=== PATIENT | male | born 1985 | race African-American/Black ===

== ENCOUNTER → 2020-09-02 14:51 | Outpatient (BNVA) | payer SELFPAY | PROVIDERS: PCP Internal Medicine; Referring Provider Pediatrics; Visit Provider Urology | DX: Z76.89 Persons encountering health services in other specified circumstances (principal) ==

== ENCOUNTER → 2021-04-29 15:53 | Outpatient (BNVA) | payer SELFPAY | PROVIDERS: Visit Provider Urology | DX: N52.9 Male erectile dysfunction, unspecified (principal); E29.1 Testicular hypofunction | CPT/HCPCS: 99212 ==

== ENCOUNTER 2021-10-08 12:23 | Outpatient (REF) | payer OTHER, SELFPAY ==
--- NOTE | ~2021-10-08 | XR_ITS ---
EXAMINATION: XR AP BILATERAL KNEE AND LEFT KNEE CLINICAL INFORMATION: Left knee pain. COMPARISON: None. TECHNIQUE: AP bilateral knee standing 1 view. Left knee 2 views. FINDINGS: AP Bilateral Knee: There is mild reduction in medial compartment joint space both knees no visible fracture, loose bodies or bony erosive changes seen in either knee joints. Left Knee: The patellofemoral compartment joints is maintained normal. No visible acute fracture, dislocation or subluxation seen. The soft tissues are normal. No abnormal joint effusion seen. XR/XR knee LT 2V IMPRESSION: Mild degenerative changes medial compartment bilateral knees.
--- NOTE | ~2021-10-08 | XR_ITS ---
EXAMINATION: XR AP BILATERAL KNEE AND LEFT KNEE CLINICAL INFORMATION: Left knee pain. COMPARISON: None. TECHNIQUE: AP bilateral knee standing 1 view. Left knee 2 views. FINDINGS: AP Bilateral Knee: There is mild reduction in medial compartment joint space both knees no visible fracture, loose bodies or bony erosive changes seen in either knee joints. Left Knee: The patellofemoral compartment joints is maintained normal. No visible acute fracture, dislocation or subluxation seen. The soft tissues are normal. No abnormal joint effusion seen. XR/XR knee standing BI IMPRESSION: Mild degenerative changes medial compartment bilateral knees.
== END 2021-10-08 12:24 | disposition home or self-care (01) ==
LOC: HO.HOSX 12:23
PROVIDERS: Visit Provider Orthopaedic Surgery
DX: M23.92 Unspecified internal derangement of left knee (principal)
CPT/HCPCS: 20610; 73560; 73565; 99212; J1100

== ENCOUNTER 2021-10-26 12:48 | Outpatient (REF) | payer OTHER, SELFPAY ==
--- NOTE | ~2021-10-26 | MR_ITS ---
EXAMINATION: MR KNEE WITHOUT CONTRAST, LEFT CLINICAL INFORMATION: Pain. COMPARISON: X-rays of the left knee September 2021 TECHNIQUE: MRI of the knee without contrast was performed using routine sequences on a high-field scanner. FINDINGS: MENISCI: Medial Meniscus: There is an irregular tear involving the middle third portion of the posterior horn extending from the femoral to the tibial articular surface and extending over a distance of 10 mm medial to lateral. There is slight outward extrusion of the meniscus likely, in part, related to this tear. Lateral Meniscus: Intact. LIGAMENTS: Cruciate: Intact. Collateral: Intact. EXTENSOR MECHANISM: Intact. ARTICULAR CARTILAGE/BONE: Patellofemoral Compartment: Normal. Medial Compartment: The articular cartilage appears intact. There is subchondral marrow edema noted on the femoral and tibial articular surface likely reflecting areas of bone contusion. Lateral Compartment: Normal. JOINT FLUID AND BURSAE: There is a moderate joint effusion and minimal synovitis. MR/MR knee LT wo con IMPRESSION: Tear of the posterior horn of the medial meniscus. Bone contusion of the medial femoral condyle and tibial plateau. Joint effusion.
== END 2021-10-26 12:49 | disposition home or self-care (01) ==
LOC: HO.MRI 12:48
PROVIDERS: Visit Provider Orthopaedic Surgery
DX: M23.92 Unspecified internal derangement of left knee (principal)
CPT/HCPCS: 73721

== ENCOUNTER → 2021-11-05 12:04 | Outpatient (BNVA) | payer OTHER, SELFPAY | PROVIDERS: Visit Provider Orthopaedic Surgery | DX: S83.242D Other tear of medial meniscus, current injury, left knee, subsequent encounter (principal); E66.01 Morbid (severe) obesity due to excess calories | CPT/HCPCS: 99212 ==

== ENCOUNTER → 2021-11-16 12:39 | Outpatient (BNVA) | payer OTHER, SELFPAY | PROVIDERS: Visit Provider Orthopaedic Surgery | DX: S83.242D Other tear of medial meniscus, current injury, left knee, subsequent encounter (principal) | CPT/HCPCS: 99212 ==

== ENCOUNTER → 2022-01-04 12:20 | Outpatient (BNVA) | payer OTHER, SELFPAY | PROVIDERS: Visit Provider Physician Assistant | DX: S83.242A Other tear of medial meniscus, current injury, left knee, initial encounter (principal) | CPT/HCPCS: 99212 ==

== ENCOUNTER 2022-01-06 10:10 | Day surgery (SDC) | payer OTHER, SELFPAY ==
[2021-12-30 19:17] VITALS: BMI 47.2
--- NOTE | 2022-01-05 08:33 | P.CONAN_ITS ---
Documented by User: Vianca Lamar NP 01/05/22 08:33 HPI - Anesthesia Eval Consult details Narrative: 36yo M for Left?Knee Arthroscopy [facility] Active Problems Active Problems: All Active Problems (Updated 12/30/21 @ 19:14 by Fallon Soler, ZINA) Hypogonadism in male (Acute) Erectile dysfunction (Acute) Internal derangement of left knee (Acute) Tear of medial meniscus of left knee (Acute) Morbid obesity due to excess calories (Acute) Past Medical History Medical History Back pain as manifestation of blood transfusion reaction History of transfusion of platelets Sleep apnea with use of continuous positive airway pressure (CPAP) Social History Social History Patient Tobacco Use Status: Never used Tobacco Current occupational status: employed 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 Meds Allergies Allergy/AdvReac Type Severity Reaction Status Date / Time No Known Allergies Allergy Verified 01/04/22 12:32 Home Medications Medication Instructions Recorded Confirmed Last Taken Type methocarbamol 750 mg tablet 750 mg PO Q6H 09/02/20 12/30/21 Unknown History tizanidine 4 mg tablet 4 mg PO Q6-8H PRN 01/04/22 Unknown History Exam Exam Date and Time: January 05, 2022 0833 Height,Weight and Vital Signs: Height 5 ft 10 in Weight 149.232 kg Assessment and Plan Assessment Anesthesia Assessment: Chart Reviewed Documented by User: Dinesh Roberts MD 01/06/22 18:03 [facility] Past Medical History Medical History Back pain as manifestation of blood transfusion reaction History of transfusion of platelets Sleep apnea with use of continuous positive airway pressure (CPAP) Family History Family history of problems with anesthesia: No Surgical History History of Problems with Anesthesia: No Social History Social History Patient Tobacco Use Status: Never used Tobacco Current occupational status: employed 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 Meds Allergies Allergy/AdvReac Type Severity Reaction Status Date / Time No Known Allergies Allergy Verified 01/04/22 12:32 Home Medications Medication Instructions Recorded Confirmed Last Taken Type methocarbamol 750 mg tablet 750 mg PO Q6H 09/02/20 12/30/21 Unknown History tizanidine 4 mg tablet 4 mg PO Q6-8H PRN 01/04/22 Unknown History Exam Airway Mallampati Class: IV TM Dist: >3cm Neck ROM: Full Loose/Missing/Broken Teeth: Yes Heart: S1, S2 Lungs: b/l breath sounds Assessment and Plan Assessment Anesthesia Assessment: Anesthesia Plan Discussed and PAT Visit Final Anesthetic Review Family History of Problems with Anesthesia: No History of Problems with Anesthesia: No NPO: Yes ASA Class: III Final Preanesthetic Review: Meds/Allgs Chart Reviewed, Consent Obtained/Reviewed and Anes Risks/Benef Reviewed Patient Risk: Intermediate Procedure Risk: Intermediate Anesthetic Plan Anesthetic Plan: GA Disposition: Standard PACU
[2022-01-06] VITALS (8 sets, daily range): BP systolic 115–140; BP diastolic 66–98; PULSE 71–82; RESP 16–20; TEMP 36.2–37.1; O2SAT 94–100
[2022-01-06] MEDS: Lactated Ringers 1,000 ML 100 ML IVCONT (10:56)
--- NOTE | 2022-01-06 12:01 | MHC.SHP ---
Pre-Procedural Eval Section A Date of Service: 01/06/22 The patient is an INPATIENT: No Changes since office visit: Yes Patient answered all questions; No Cold of Flu in the past 2 weeks, No New Medical Problems and No Changes in Medication The History & Physical has been completed within 30 days and I have reviewed it.: Yes Section B Chief Complaint: meniscus tear Allergies: Allergies Allergy/AdvReac Type Severity Reaction Status Date / Time No Known Allergies Allergy Verified 01/04/22 12:32 Plan I have reviewed the history and physical and performed a pertinent physical examination on my patient. No changes have occurred unless specified.
--- NOTE | 2022-01-06 13:18 | P.BOP_ITS ---
Brief Operative Note Date of Service: 01/06/22 Pre-op diagnosis: left knee medial meniscus tear Post-op diagnosis: other (1) left knee medial meniscus tear 2) left knee plica 3) left knee OA 4) left knee synovitis) Procedure: left knee with partial medial meniscectomy, plica resection, chondroplasty and limited synovectomy Surgeon: Wei Santana MD Anesthesia: GETA and local Was an Dental Laboratory Assistant used for this Procedure?: No Estimated blood loss (mL): 10 IV fluids (mL): 1,000 Pathology: none sent Condition: stable Disposition: PACU
[2022-01-06] MEDS: oxyCODONE HCl Immed Release 5 MG TABLET PO (13:57)
--- NOTE | 2022-01-15 16:05 | P.OP_ITS ---
Operative Note Operative Note Date of Service: 01/06/22 Narrative: Date of Service: 01/06/22 Pre-op diagnosis: left knee medial meniscus tear Post-op diagnosis: other (1) left knee medial meniscus tear 2) left knee plica 3) left knee OA 4) left knee synovitis) Procedure: left knee with partial medial meniscectomy, plica resection, chondroplasty and limited synovectomy Surgeon: Wei Santnaa MD Anesthesia: GETA and local Was an Customer Service Supervisor used for this Procedure?: No Estimated blood loss (mL): 10 IV fluids (mL): 1,000 Pathology: none sent Condition: stable Disposition: PACU Procedure in detail: Patient was brought to the operating room placed supine on the arthroscopic table and prepped and draped in standard sterile fashion. A time-out was called to identify proper site proper procedure proper surgeon and IV antibiotics per weight were administered. I began by exsanguinating the limb and insufflating tourniquet to 300 mm Hg. Then made a standard anterolateral stab incision. knee was insufflated with water and 30 degree arthroscope was placed. There was grade 1 fibrillations of the patella but overall suprapatellar pouch was plane and the gutters were clean. I descended into the medial compartment where I made my medial portal under direct visualization. There was obvious of complex tear of the body and posterior horn of the medial meniscus. Root was intact and there was grade 2-3 changes of the wbn portion of the MFC. There was a medial plica which was resected as well. I used a combination of biter shaver and cautery to remove unstable portions of the meniscus. Approximately 30% of the meniscal volume was removed. Loose cartilaginous fragments of the medial femoral condyle and patella were debrided with a shaver. There was synovitis in the anterior interval which was debrided with a shaver I was satisfied with this the ACL was examined and found to be intact and the lateral compartment also was without the need for intervention. I then removed all instrumentation and closed the portals with skin glue. 25 mL of 2% Marcaine with epinephrine was injected into the joint and the surrounding soft tissues. Patient was then placed in sterile dressing extubated brought recovery room stable condition. There were no known complications.
== END 2022-01-06 15:36 | disposition home or self-care (01) ==
LOC: HO.SSS 10:11
PROVIDERS: Visit Provider Orthopaedic Surgery
PROC: (CPT 29870; principal; 2022-01-06 12:40)
DX: S83.242A Other tear of medial meniscus, current injury, left knee, initial encounter (principal); M67.52 Plica syndrome, left knee; M17.12 Unilateral primary osteoarthritis, left knee; M65.862 Other synovitis and tenosynovitis, left lower leg; R26.89 Other abnormalities of gait and mobility; G47.33 Obstructive sleep apnea (adult) (pediatric); Z99.89 Dependence on other enabling machines and devices
CPT/HCPCS: 29881; J0690; J1100; J2250; J2405; J3010

== ENCOUNTER 2022-01-11 07:48 | Outpatient (RCR) | payer OTHER, SELFPAY ==
--- NOTE | 2022-01-11 16:37 | MHC.PT.EP ---
[facility] [place] Office [place] Office [place] Office [address] Gibran Gagnon [address] [phone] F: [phone] F: [phone] F: [phone] F: [phone] Physical Therapy Plan of Care Date of Evaluation: Date of Surgery: 01/06/22 Diagnosis: left knee with partial medial meniscectomy, plica resection, chondroplasty and limited synovectomy Assessment: PRESENTS POD #5 FOR ORTHOPEDIC FOLLOW UP AND PT EVALUATION. UPON EXAM HE DEMONSTRATES THE EXPECTED IMPAIRMENTS OF DECREASED ROM, DECREASED STRENGTH, ALTERED POSTURE AND POSITIONING, ALTERED GAIT AND BALANCE, AND INCREASED PAIN AND EDEMA. FUNCTIONAL LIMITATIONS INCLUDE DECREASED ABILITY TO PERFORM HOMEMAKING AND SELF-CARE TASKS, DECREASED ABILITY TO PERFORM WALKING, RUNNING, JUMPING AND SQUATTING, INABILITY TO DRIVE AND PERFORM WORK TASKS, DECREASED PARTICIPATION IN COMMUNITY AND RECREATIONAL ACTIVITIES AND DISRUPTED SLEEP. THE Pt IS A GOOD CANDIDATE FOR SKILLED PT DUE TO AGE, POTENTIAL REMEDIATION OF IMPAIRMENTS, TYPICAL DISEASE/CONDITION PROGRESSION AND PROGNOSIS, COMORBIDITIES, AND MOTIVATION. PT WOULD BENEFIT FROM TAILORED PROGRAM OF THERAPEUTIC ACTIVITIES, FUNCTIONAL TRAINING, GAIT TRAINING, POSTURAL EDUCATION, NEUROMUSCULAR RE-EDUCATION, AND MODALITIES NEEDED. Frequency and Duration: The patient will be seen 2 X WEEK FOR 4 WEEKS Short Term Goals: INITIATE HEP AND PROMOTE SELF MANAGEMENT OF SYMPTOMS IN 2 VISITS Long-Term Goals: TO DEMONSTRATE FULL KNEE ROM, EQUAL MADHURI TO DEMONSTRATE FULL LE STRENGTH, EQUAL MADHURI TO ASCEND AND DESCEND STAIRS WITH RECIPROCAL GAIT WITHOUT PAIN GREATER THAN 2/10 TO AMBULATE AD CONSTANTINE ON LEVEL AND UNEVEN SURFACES FOR FITNESS WITHOUT PAIN GREATER THAN 2/10 Treatment Plan: Modalities to reduce pain, spasms and effusion. Manual therapy to restore motion and function. Therapeutic exercise to improve strength and flexibility. Neuromuscular re-education for posture and balance. Therapeutic activities to return to functional activities of daily living. Electronically signed by: RALEIGH TAVAREZ PT, DPT Please sign and return to therapist. Thank you for your referral.
--- NOTE | 2022-02-09 09:54 | MHC.PT.DC ---
[facility] [place] Office [place] Office [place] Office [address] [facility] [phone] F: [phone] F: [phone] F: [phone] F: [phone] Physical Therapy Discharge Report Diagnosis: left knee with partial medial meniscectomy, plica resection, chondroplasty and limited synovectomy Date of Surgery: 01/06/22 Date of Evaluation: 01/11/22 Date of Discharge: 02/09/22 Treatments to Date: 1 Cancellations to Date: 0 No Shows to Date: 0 Discharge Status: Discharge Summary: Pt attended initial visit only and did not return for further visits. Status unknown. Electronically signed by: Deepika Charles PT, DPT Please sign and return to therapist. Thank you for your referral.
== END 2022-02-09 10:03 | disposition home or self-care (01) ==
LOC: HO.PT 07:48
PROVIDERS: Visit Provider Physician Assistant
DX: M23.92 Unspecified internal derangement of left knee (principal); S83.242D Other tear of medial meniscus, current injury, left knee, subsequent encounter
CPT/HCPCS: 97110; 97161

== ENCOUNTER → 2022-01-11 11:29 | Outpatient (BNVA) | payer OTHER, SELFPAY | PROVIDERS: Visit Provider Physician Assistant | DX: S83.242D Other tear of medial meniscus, current injury, left knee, subsequent encounter (principal) | CPT/HCPCS: 99212 ==

== ENCOUNTER 2022-04-13 10:05 | Outpatient (REF) | payer OTHER, SELFPAY ==
--- NOTE | ~2022-04-13 | XR_ITS ---
EXAMINATION: XR FOOT, BILATERAL CLINICAL INFORMATION: Pain. COMPARISON: None TECHNIQUE: 3 views of each foot. FINDINGS: RIGHT FOOT: There is no evidence of acute fracture or dislocation of the right foot. Right foot joint spaces are maintained. There is a small bony density seen about the base of the 5th proximal phalanx likely related to previous injury. A plantar calcaneal spur is seen. LEFT FOOT: There is no evidence of acute fracture or dislocation of the left foot. Joint spaces are maintained. Plantar calcaneal spur is seen. XR/XR foot LT min 3V IMPRESSION: Bilateral plantar calcaneal spurs. No acute fracture or dislocation identified.
--- NOTE | ~2022-04-13 | XR_ITS ---
EXAMINATION: XR FOOT, BILATERAL CLINICAL INFORMATION: Pain. COMPARISON: None TECHNIQUE: 3 views of each foot. FINDINGS: RIGHT FOOT: There is no evidence of acute fracture or dislocation of the right foot. Right foot joint spaces are maintained. There is a small bony density seen about the base of the 5th proximal phalanx likely related to previous injury. A plantar calcaneal spur is seen. LEFT FOOT: There is no evidence of acute fracture or dislocation of the left foot. Joint spaces are maintained. Plantar calcaneal spur is seen. XR/XR foot RT min 3V IMPRESSION: Bilateral plantar calcaneal spurs. No acute fracture or dislocation identified.
== END 2022-04-13 10:06 | disposition home or self-care (01) ==
LOC: HO.XRAY 10:05
PROVIDERS: PCP Internal Medicine; Visit Provider Internal Medicine
DX: M25.571 Pain in right ankle and joints of right foot (principal); M25.572 Pain in left ankle and joints of left foot
CPT/HCPCS: 73630

== ENCOUNTER → 2022-07-12 12:46 | Outpatient (BNVA) | payer OTHER, SELFPAY | PROVIDERS: PCP Internal Medicine; Visit Provider Physician Assistant | DX: M17.12 Unilateral primary osteoarthritis, left knee (principal) | CPT/HCPCS: 99212 ==

== ENCOUNTER 2022-07-23 14:26 | Outpatient (REF) | payer OTHER, SELFPAY ==
--- NOTE | ~2022-07-23 | MR_ITS ---
EXAMINATION: MR KNEE WITHOUT CONTRAST, LEFT CLINICAL INFORMATION: Anterior left knee pain for 3 weeks. Medial pain with positive valgus test. Arthroscopy 6 months ago. COMPARISON: Left knee MRI dated 10/26/2021. TECHNIQUE: MRI of the knee without contrast was performed using routine sequences on a high-field scanner. FINDINGS: MENISCI: Medial Meniscus: There has been interval repair of the previously seen posterior horn radial tear. The posterior horn appears attenuated in this region with oblique tibial articular surface signal extending along the posterior body/posterior horn junction and to the inner margin of the meniscal body, which could represent recurrent, nondisplaced tearing. The meniscal body is medially extruded. Correlation with surgical history is recommended. Lateral Meniscus: Intact LIGAMENTS: Cruciate: Intact Collateral: Intact EXTENSOR MECHANISM: Intact ARTICULAR CARTILAGE/BONE: Patellofemoral Compartment: Mild lateral patellar and trochlear articular cartilage signal heterogeneity with tiny marginal osteophytes, increased when compared to the prior examination. Medial Compartment: Weight-bearing articular cartilage thinning with full-thickness fissuring at the medial femoral condyle measuring 0.1 x 0.6 cm (ML by AP). Underlying marrow edema, increased when compared to the prior examination. Tiny marginal osteophytes. Lateral Compartment: Mild articular cartilage signal heterogeneity with tiny marginal osteophytes, slightly increased. JOINT FLUID AND BURSAE: Small joint effusion. MR/MR knee LT wo con IMPRESSION: 1. Interval repair of the previously seen medial meniscus posterior horn radial tear. The posterior horn appears attenuated in this region with oblique tibial articular surface signal extending along the posterior body/posterior horn junction and to the inner margin of the meniscal body, which could represent recurrent, nondisplaced tearing. Correlation with surgical history is recommended. 2. Mild tricompartmental osteoarthritis, slightly increased when compared to the prior examination. Findings are most prominent within the medial compartment where there is increasing marrow edema. Small joint effusion.
== END 2022-07-23 14:27 | disposition home or self-care (01) ==
LOC: HO.MRI 14:26
PROVIDERS: Visit Provider Family Medicine
DX: M25.562 Pain in left knee (principal)
CPT/HCPCS: 73721

== ENCOUNTER → 2022-08-09 13:33 | Outpatient (BNVA) | payer OTHER, SELFPAY | PROVIDERS: PCP Internal Medicine; Visit Provider Physician Assistant | DX: M17.12 Unilateral primary osteoarthritis, left knee (principal) | CPT/HCPCS: 99212 ==

== ENCOUNTER 2022-11-17 11:48 | Outpatient (REF) | payer OTHER, SELFPAY ==
[2022-11-21 22:53] LABS: Estradiol Ultra Sensitive 19 pg/mL (< OR = 29)
[2022-11-22 17:34] LABS: Testosterone, Free 28.9 pg/mL (35.0-155.0); Testosterone, Total 132 ng/dL (250-1100)
== END 2022-11-17 11:49 | disposition home or self-care (01) ==
LOC: HO.LAB 11:48
PROVIDERS: PCP Internal Medicine; Visit Provider Urology
DX: E29.1 Testicular hypofunction (principal)
CPT/HCPCS: 36415; 82670; 84402; 84403

== ENCOUNTER → 2022-11-30 15:46 | Outpatient (BNVA) | payer OTHER, SELFPAY | PROVIDERS: Visit Provider Urology ==

== ENCOUNTER → 2023-01-06 10:45 | Outpatient (BNVA) | payer OTHER, SELFPAY | PROVIDERS: PCP Internal Medicine; Visit Provider Orthopaedic Surgery | DX: M17.12 Unilateral primary osteoarthritis, left knee (principal); M89.9 Disorder of bone, unspecified; M94.9 Disorder of cartilage, unspecified | CPT/HCPCS: 20610; 99212; J1100 ==

== ENCOUNTER 2023-01-28 13:07 | Outpatient (REF) | payer OTHER, SELFPAY ==
[2023-02-04 13:58] LABS: Testosterone, Free 32.7 pg/mL (35.0-155.0); Testosterone, Total 162 ng/dL (250-1100)
== END 2023-01-28 13:08 | disposition home or self-care (01) ==
LOC: HO.LAB 13:07
PROVIDERS: PCP Internal Medicine; Visit Provider Urology
DX: E29.1 Testicular hypofunction (principal)
CPT/HCPCS: 36415; 84402; 84403

== ENCOUNTER → 2023-02-09 15:49 | Outpatient (BNVA) | payer OTHER, SELFPAY | PROVIDERS: PCP Internal Medicine; Visit Provider Urology ==

== ENCOUNTER 2023-03-03 08:43 | Outpatient (REF) | payer OTHER, SELFPAY ==
[2023-03-03 15:05] LABS: TSH reflex Free T4 2.34 uIU/mL (0.32-4.0)
== END 2023-03-03 08:44 | disposition home or self-care (01) ==
LOC: CF 08:43
PROVIDERS: Visit Provider Internal Medicine
DX: R79.89 Other specified abnormal findings of blood chemistry (principal)
CPT/HCPCS: 36415; 84443

== ENCOUNTER 2023-05-16 14:22 | Outpatient (REF) | payer OTHER, SELFPAY ==
[2023-05-16 16:23] LABS: TSH reflex Free T4 3.73 uIU/mL (0.32-4.0)
[2023-05-21 19:18] LABS: Testosterone, Free 29.1 pg/mL (35.0-155.0); Testosterone, Total 118 ng/dL (250-1100)
== END 2023-05-16 14:23 | disposition home or self-care (01) ==
LOC: HO.LAB 14:22
PROVIDERS: Absent Provider Internal Medicine; PCP Internal Medicine; Visit Provider Urology
DX: R79.89 Other specified abnormal findings of blood chemistry (principal); E29.1 Testicular hypofunction
CPT/HCPCS: 36415; 84402; 84403; 84443

== ENCOUNTER 2023-06-02 14:00 | Outpatient (AMB) | payer OTHER, SELFPAY ==
--- NOTE | 2023-06-02 14:01 | MHC.OFFVIS ---
Intake Intake Visit Reasons: 3M Testosterone(set) Intake Note: Patient presents for follow up telephone visit for testosterone labs Urology Medications: tadalafil Blood Thinner: none Heavy Forger Required: Yes Heavy Forger Name: Dorothy Accompanied by: Self / Same As Patient Allergies No Known Allergies Allergy (Verified 06/02/23 16:11) Medication List - Last Reconciled 06/02/23 by TU Lares levothyroxine 25 mcg PO DAILY methocarbamol 750 mg PO Q6H tadalafil 20 mg PO ONCE PRN 30 days testosterone 2 pumps topical DAILY 30 days tizanidine 4 mg PO Q6-8H PRN HPI HPI Comments History of Present Illness Details Tawanda is a very pleasant 37-year-old Khmer-speaking male patient of Dr. Fuentes. He has a past medical history of back pain, hypothyroidism, and sleep apnea. He is being followed up on today via telehealth for hypogonadism and erectile dysfunction. In discussion with the patient he reports to be doing and feeling well. He reports feeling more energy and in better spirits since increasing daily dose of Cialis 10 mg daily. Recent testosterone results reviewed with the patient today. 05/16/23--118. Discussed continuation of Tadalafil verses initiation of testosterone therapy at length. Discussed risk and benefits of testosterone replacement therapy. Discussed at length potential causes for low testosterone. When asked he reports Cialis 20 mg on demand to be helping with erectile dysfunction. He otherwise denies any issues with his urination. He denies urinary urgency, urinary frequency, incontinence, nocturia, hematuria, dysuria, foul smelling urine, changes to urinary stream, flank pain, fever, and or chills. Previous office note information: Erectile dysfunction: He presents today for further evaluation of ejaculatory disorder. Symptoms have been present for/since Several months. Current treatment includes none. Has used tadalafil in the past At this time he experiences erections are partial and adequate for vaginal penetration, that last until ejaculation. Currently they are in a stable relationship. 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 Review of Systems Const All systems reviewed & are unremarkable except as noted in HPI and below Eyes Reports no additional complaints ENT Reports no additional complaints Card Reports no additional complaints Resp Reports as per HPI GI Reports no additional complaints Reports as per HPI Musc Reports as per HPI Neuro Reports no additional complaints Psych Reports no additional complaints Endo Reports as per HPI Ronaldo/Lymph Reports no additional complaints Aller/Immun Reports no additional complaints Physical Exam Const General: cooperative Orientation/consciousness: patient oriented x3 Resp Effort & Inspection: able to speak in complete sentences Neuro General: patient oriented x3 Psych Speech and movement: Clear speech present Attitude: cooperative Thought process: Normal thought process present Insight: Fair insight present (Psych) Judgement: Fair judgement present (Psych) Assessment & Plan Assessment & Plan (1) Hypogonadism in male: Code(s): E29.1 - Testicular hypofunction (2) Erectile dysfunction: Code(s): N52.9 - Male erectile dysfunction, unspecified Plan Recent testosterone results reviewed with the patient today Start testosterone as discussed and prescribed. Continue with p.r.n. Tadalafil as needed for sexual active Discussed at length potential causes for low testosterone. Discussed adequate sleep, healthy eating habits, and daily activity for improvement in hypogonadism as well as overall health and well-being. Will obtain testosterone, CBC, and PSA in 3 months. Follow-up in 3 months with labs to be completed prior; or sooner with any issues, concerns, and or questions. Orders: Orders Testosterone, Free/Total 3 Months E29.1 - Testicular hypofunction Prostate Specific Antigen 3 Months E29.1 - Testicular hypofunction Complete Blood Count no Diff 3 Months E29.1 - Testicular hypofunction Medications: New testosterone apply 2 pumps over max area - alternate shoulders on alternate days 2 pumps topical DAILY 30 days 75 grams 1RF E29.1 - Testicular hypofunction, R79.89 - Other specified abnormal findings of blood chemistry Patient Instructions: The patient had an opportunity to ask questions regarding the treatment plan. All questions were answered. Physical exam, labs, and imaging were discussed and reviewed in detail. As well as risks, benefits, and discussion of treatment choices. No major barriers to understanding were identified. The patient expressed understanding and agreement with the above treatment plan. The patient was made aware they should contact our office by phone for worsening of their current condition, the appearance of new symptoms, or with any questions or concerns. Compliance is encouraged with any medications and follow up testing that is ordered. It is a privilege to be allowed the opportunity to participate in? your urological care.? Again, if you have any questions or concerns If you have any questions or concerns please do not hesitate to contact me. The office is [phone]. This note is constructed using voice recognition software. While every effort has been made to ensure accuracy business objects consultant errors may have been included. Yours sincerely, GANGA Lares Telehealth Telehealth Location of provider rendering services: practice address Location of patient: address on file Patient Identification confirmed using: Name, : Yes Telehealth method: voice only Patient verbally consented to treatment: Yes Patient verbally consented to billing insurance company: Yes Patient informed of any privacy concerns related to visit: Yes Minutes spent on Phone/Video with Pt.: 20 Coding Level of Care Code Tele Est Pt Level 4 (27543) Diagnoses Hypogonadism in male E29.1 Erectile dysfunction N52.9 Time Spent (min) 20
== END 2023-06-02 15:03 | disposition home or self-care (01) ==
LOC: HO.HUSH 14:00
PROVIDERS: PCP Internal Medicine; Visit Provider Nurse Practitioner Family
DX: E29.1 Testicular hypofunction (principal); N52.9 Male erectile dysfunction, unspecified
CPT/HCPCS: 99214

== ENCOUNTER → 2023-06-02 14:00 | Outpatient (BNVA) | payer OTHER, SELFPAY | PROVIDERS: PCP Internal Medicine; Visit Provider Nurse Practitioner Family ==

== ENCOUNTER 2023-08-29 06:42 | Outpatient (REF) | payer OTHER, SELFPAY ==
[2023-09-03 15:38] LABS: Testosterone, Free 64.7 pg/mL (35.0-155.0); Testosterone, Total 248 ng/dL (250-1100)
== END 2023-08-29 06:43 | disposition home or self-care (01) ==
LOC: HO.LAB 06:42
PROVIDERS: PCP Internal Medicine; Visit Provider Nurse Practitioner Family
DX: E29.1 Testicular hypofunction (principal)
CPT/HCPCS: 36415; 84153; 84402; 84403; 85027

== ENCOUNTER 2023-09-12 13:39 | Outpatient (AMB) | payer OTHER, SELFPAY ==
--- NOTE | 2023-09-12 14:18 | MHC.OFFVIS ---
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 Fuentes. He has a past medical history of back pain, obesity, hypothyroidism, and sleep apnea. He presents to the office today for follow-up of his hypogonadism and erectile dysfunction. In discussion with the patient he reports to be doing and feeling well. Recent testosterone results reviewed with the patient today as noted below. He discusses feeling although testosterone levels have increased since his last office visit here he has noted a decrease in his erections and has had to use his p.r.n Cialis for improvement in his ED. He discusses feeling when utilizing p.r.n. Cialis it is helpful for his erections however he feels it prolongs his ejaculation. Discussed lifestyle modifications to assist with prolonged ejaculation. Discussed stimulation preceding sexual intercourse. He otherwise denies any issues with his urination. He denies urinary urgency, urinary frequency, incontinence, nocturia, hematuria, dysuria, foul smelling urine, changes to urinary stream, flank pain, fever, and or chills. He discusses previous infertility workup in [place] however in discussion with the patient today he reports he does not wish to undergo further workup as his has been diagnosed with Lupus and together they are not enquiring to conceive at this time. Previous office note information: Erectile dysfunction: He presents today for further evaluation of ejaculatory disorder. Symptoms have been present for/since Several months. Current treatment includes none. Has used tadalafil in the past At this time he experiences erections are partial and adequate for vaginal penetration, that last until ejaculation. Currently they are in a stable relationship. 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 Review of Systems Const All systems reviewed & are unremarkable except as noted in HPI and below Eyes Reports no additional complaints ENT Reports no additional complaints Card Reports no additional complaints Resp Reports as per HPI GI Reports no additional complaints Reports as per HPI Musc Reports as per HPI Neuro Reports no additional complaints Psych Reports no additional complaints Endo Reports as per HPI Ronaldo/Lymph Reports no additional complaints Aller/Immun Reports no additional complaints Physical Exam Const General: cooperative, healthy appearing, comfortable, no acute distress, well developed, alert and awake Nutritional Appearance: overweight Orientation/consciousness: patient oriented x3 Limitations: no limitations HEENT Head: Yes normal to inspection, Yes normocephalic and Yes atraumatic Ears: hearing grossly normal bilaterally Eyes General: appearance normal, both eyes and all related structures Neck Neck: Yes normal visual inspection and Yes trachea midline Chest Chest palpation & inspection: normal inspection of the chest Resp Effort & Inspection: normal respiratory effort and able to speak in complete sentences Cardio Rate: regular rate GI Inspection: Yes normal to inspection General: Yes no CVA tenderness Back/Spine/Pelvis Back: no CVA tenderness Skin General skin exam: no rashes or lesions noted Neuro General: patient oriented x3 Extrem General: Yes normal to inspection Psych Appearance: grossly normal and well kempt Mental Status: mental status grossly normal Speech and movement: Normal speech and movement present and Clear speech present Affect: normal affect Attitude: cooperative Thought process: Normal thought process present Thought content: Normal thought content present Insight: Fair insight present (Psych) Judgement: Fair judgement present (Psych) Results AMB Urinalysis, Automated UA Leukoctes 0 Stephany/uL Last Edit by Reyes Garcia on 09/12/23 14:29 UA Nitrite Negative Last Edit by Reyes Garcia on 09/12/23 14:29 UA Urobilinogen 0.2 mg/dL Last Edit by Reyes Garcia on 09/12/23 14:29 UA Protein 0 mg/dL Last Edit by [employer] on 09/12/23 14:29 UA pH 6.0 Last Edit by [employer] on 09/12/23 14:29 UA Blood 0 Cj/uL Last Edit by [employer] on 09/12/23 14:29 UA Specific [place] 1.030 Last Edit by [employer] on 09/12/23 14:29 UA Ketone Negative Last Edit by [employer] on 09/12/23 14:29 UA Bilirubin 0 mg/dL Last Edit by [employer] on 09/12/23 14:29 UA Glucose 0 mg/dL Last Edit by [employer] on 09/12/23 14:29 Results Reviewed Results Reviewed: Laboratory Last Values Urine pH (Auto) 6.0 09/12/23 14:23 Specific [place] (Auto) 1.030 09/12/23 14:23 Urine Protein (Auto) 0 mg/dL 09/12/23 14:23 Glucose (UA)(Auto) 0 mg/dL 09/12/23 14:23 Urine Ketones (Auto) Negative 09/12/23 14:23 Urine Blood (Auto) 0 Cj/uL 09/12/23 14:23 Urine Nitrite (Auto) Negative 09/12/23 14:23 Urine Bilirubin (Auto) 0 mg/dL 09/12/23 14:23 Urine Urobilinogen (Auto) 0.2 mg/dL 09/12/23 14:23 Leukocyte Esterase (Auto) 0 Stephany/uL 09/12/23 14:23 Assessment & Plan Assessment & Plan (1) Hypogonadism in male: Code(s): E29.1 - Testicular hypofunction (2) Erectile dysfunction: Code(s): N52.9 - Male erectile dysfunction, unspecified Plan In office urinalysis results reviewed with the patient today; as noted above. Patient currently denies any bothersome urinary issues. He reports be happy with current voiding parameters. Recent testosterone, PSA, and CBC results reviewed with the patient today. Will increase testosterone to 3 pumps daily as discussed and prescribed. Continue with Cialis as needed for sexual activity as prescribed. Discussed and stressed the importance of compliance with sleep apnea machine for improvement in ED, hypogonadism, and overall health and well being. Discussed and stressed the importance of lifestyle modifications to assist with ED as well as hypogonadism Follow-up in 3 months with labs to be completed prior; or sooner with any issues, concerns, and or questions. Orders: Orders AMB Urinalysis Automated Today Z13.9 - Encounter for screening, unspecified Complete Blood Count no Diff 3 Months E29.1 - Testicular hypofunction Testosterone, Free/Total 3 Months E29.1 - Testicular hypofunction Prostate Specific Antigen 3 Months E29.1 - Testicular hypofunction Medications: Changed From testosterone apply 2 pumps over max area - alternate shoulders on alternate days 2 pumps topical DAILY 30 days 75 grams 1RF E29.1 - Testicular hypofunction, R79.89 - Other specified abnormal findings of blood chemistry To testosterone apply 2 pumps over max area - alternate shoulders on alternate days 3 pumps topical DAILY 75 grams 1RF 30 days E29.1 - Testicular hypofunction, R79.89 - Other specified abnormal findings of blood chemistry Patient Instructions: The patient had an opportunity to ask questions regarding the treatment plan. All questions were answered. Physical exam, labs, and imaging were discussed and reviewed in detail. As well as risks, benefits, and discussion of treatment choices. No major barriers to understanding were identified. The patient expressed understanding and agreement with the above treatment plan. The patient was made aware they should contact our office by phone for worsening of their current condition, the appearance of new symptoms, or with any questions or concerns. Compliance is encouraged with any medications and follow up testing that is ordered. It is a privilege to be allowed the opportunity to participate in? your urological care.? Again, if you have any questions or concerns If you have any questions or concerns please do not hesitate to contact me. The office is [phone]. This note is constructed using voice recognition software. While every effort has been made to ensure accuracy real estate processor errors may have been included. Yours sincerely, TU Lares Coding Level of Care Code Est Pt Level 4 (03564) Diagnoses Hypogonadism in male E29.1 Erectile dysfunction N52.9 Time Spent (min) 40
== END 2023-09-12 14:58 | disposition home or self-care (01) ==
PROVIDERS: PCP Internal Medicine; Visit Provider Nurse Practitioner Family
DX: E29.1 Testicular hypofunction (principal); N52.9 Male erectile dysfunction, unspecified; Z13.9 Encounter for screening, unspecified
CPT/HCPCS: 99214

== ENCOUNTER → 2023-09-12 13:39 | Outpatient (BNVA) | payer OTHER, SELFPAY | PROVIDERS: PCP Internal Medicine; Visit Provider Nurse Practitioner Family | DX: E29.1 Testicular hypofunction (principal); N52.9 Male erectile dysfunction, unspecified | CPT/HCPCS: 81003; 99212 ==

== ENCOUNTER 2024-01-09 08:44 | Outpatient (REF) | payer OTHER, SELFPAY ==
[2024-01-09 15:01] LABS: Alanine Aminotransferase 49 U/L (0-40); Albumin Level 3.9 g/dL (3.5-5.0); Alkaline Phosphatase 84 U/L (39-117); Anion Gap 14 (12-20); Aspartate Amino Transferase 32 U/L (5-37); Bilirubin Total 0.3 mg/dL (0.0-1.0); Blood Urea Nitrogen 11 mg/dL (9-16); Calcium 9.4 mg/dL (8.4-10.2); Carbon Dioxide 24 mmol/L (22-29); Chloride 107 mmol/L (96-108); Cholesterol 141 mg/dL (<200); Estimated Glomerular Filt Rate > 60; Glucose Random 100 mg/dL (60-115); HDL Cholesterol 35 mg/dL (>40); LDL Cholesterol Calculated 90 mg/dL (<100); Potassium 3.8 mmol/L (3.3-5.1); Sodium 141 mmol/L (135-145); Total Protein 7.6 g/dL (6.5-8.0); Triglycerides 83 mg/dL (<150)
[2024-01-09 15:17] LABS: TSH reflex Free T4 2.06 uIU/mL (0.32-4.0)
== END 2024-01-09 08:45 | disposition home or self-care (01) ==
LOC: HO.CHCLDS 08:44
PROVIDERS: Visit Provider Internal Medicine
DX: Z00.00 Encounter for general adult medical examination without abnormal findings (principal); R79.89 Other specified abnormal findings of blood chemistry; E66.01 Morbid (severe) obesity due to excess calories
CPT/HCPCS: 36415; 80053; 80061; 84443

== ENCOUNTER 2024-03-09 08:38 | Outpatient (REF) | payer OTHER, SELFPAY ==
[2024-03-09 10:22] LABS: Hematocrit 44.4 % (42.0-52.0); Hemoglobin 14.8 g/dl (14.0-18.0); Mean Corpuscular HGB Conc 33.3 g/dl (31.0-36.0); Mean Corpuscular Hemoglobin 29.7 pg (27.0-33.0); Mean Corpuscular Volume 89.2 fL (80.0-98.0); Platelet Count 213 X10*3/uL (160-400); Red Blood Count 4.98 X10*6/uL (4.60-5.80); Red Cell Distribution Width 11.9 % (11.0-16.0); White Blood Count 7.2 X10*3/uL (4.8-10.8)
[2024-03-13 21:53] LABS: Testosterone, Free 35.3 pg/mL (35.0-155.0); Testosterone, Total 144 ng/dL (250-1100)
== END 2024-03-09 08:39 | disposition home or self-care (01) ==
LOC: HO.LAB 08:38
PROVIDERS: PCP Internal Medicine; Visit Provider Nurse Practitioner Family
DX: E29.1 Testicular hypofunction (principal)
CPT/HCPCS: 36415; 84153; 84402; 84403; 85027

== ENCOUNTER 2024-05-08 12:03 | Outpatient (AMB) | payer OTHER, SELFPAY ==
--- NOTE | 2024-05-08 12:04 | A.OFFVIS_ITS ---
Intake Visit Reasons: follow up/labs Intake Note: Patient presents today for tele visit follow up on: Erectile Dysfunction, hypogonadism, and labs Testosterone: 144 Free Testosterone: 35.3 PSA: 0.20 Urology Medications: tadalafil, ? 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 Fuentes. He has a past medical history of back pain, obesity, hypothyroidism, and sleep apnea. He is being followed up on today via video telehealth his hypogonadism and erectile dysfunction. In discussion with the patient he reports to be doing and feeling well. Recent testosterone results reviewed with the patient today. PSA 03/14 0.2 Testosterone 03/14 144 Free testosterone 03/14 35.3 H/H 14.8/44.4 Reports running out of refills on his testosterone. He reports prior to his lab work he had ran out of refills however never called the office to inquire. He reports while taking testosterone he did feel like this improved with his erections, libido, mood, and strength. He discusses recently starting Wegovy and has lost over 15 lb. He discusses feeling issues with premature ejaculation when having intercourse with his however during masturbation does not feel he has any ED and or premature ejaculation. He discusses feeling symptoms started potentially 15 years ago after having a bilateral varicocelectomy in [place]. He also notes feeling testosterone helped him with his sleeping. Discussed stimulation preceding sexual intercourse. He otherwise denies any issues with his urination. He denies urinary urgency, urinary frequency, incontinence, nocturia, hematuria, dysuria, foul smelling urine, changes to urinary stream, flank pain, fever, and or chills. He discusses previous infertility workup in [place] however he reports he does not wish to undergo further workup as his has been diagnosed with Lupus and together they are not enquiring to conceive at this time. Previous office note information: Erectile dysfunction: He presents today for further evaluation of ejaculatory disorder. Symptoms have been present for/since Several months. Current treatment includes none. Has used tadalafil in the past At this time he experiences erections are partial and adequate for vaginal penetration, that last until ejaculation. Currently they are in a stable relationship. 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 Review of Systems Const All systems reviewed & are unremarkable except as noted in HPI and below Eyes Reports no additional complaints ENT Reports no additional complaints Card Reports no additional complaints Resp Reports as per HPI GI Reports no additional complaints Reports as per HPI Musc Reports as per HPI Neuro Reports no additional complaints Psych Reports no additional complaints Endo Reports as per HPI Ronaldo/Lymph Reports no additional complaints Aller/Immun Reports no additional complaints Physical Exam Const General: cooperative, healthy appearing, comfortable, no acute distress, well developed, alert and awake Orientation/consciousness: patient oriented x3 Resp Effort & Inspection: normal respiratory effort and able to speak in complete sentences Neuro General: patient oriented x3 Psych Appearance: grossly normal and well kempt Mental Status: mental status grossly normal Speech and movement: Normal speech and movement present and Clear speech present Affect: normal affect Attitude: cooperative Thought process: Normal thought process present Thought content: Normal thought content present Insight: Fair insight present (Psych) Judgement: Fair judgement present (Psych) Telehealth Telehealth Telehealth Platform: [email or web address] Location of provider rendering services: practice address Location of patient: address on file Patient Identification confirmed using: Name, : Yes Telehealth method: voice only Patient verbally consented to billing insurance company: Yes Patient informed of any privacy concerns related to visit: Yes Minutes spent on Phone/Video with Pt.: 25 Assessment & Plan Assessment & Plan (1) Varicocele: Code(s): I86.1 - Scrotal varices Category: Medical (2) Hypogonadism in male: Code(s): E29.1 - Testicular hypofunction Category: Medical (3) Erectile dysfunction: Code(s): N52.9 - Male erectile dysfunction, unspecified Category: Medical (4) Premature ejaculation: Code(s): F52.4 - Premature ejaculation Category: Medical Plan Will obtain scrotal ultrasound for further assessment evaluation. Recent hypogonadism labs reviewed with the patient today; as noted above. Discussed compliance with testosterone as prescribed; refill provided. Patient currently denies any bothersome urinary issues or concerns. He reports be happy with current voiding parameters. Discussed further infertility workup with semen analysis verses fellows kit All questions were answered Follow-up in 3 months with labs and imaging to be completed prior; or sooner with any issues, concerns, and or questions. Orders: Orders PSA,Total (Free>4and<10) 3 Months E29.1 - Testicular hypofunction Testosterone, Free/Total 3 Months E29.1 - Testicular hypofunction Complete Blood Count no Diff 3 Months E29.1 - Testicular hypofunction US scrotum Today I86.1 - Scrotal varices Medications: Refilled testosterone apply 3 pumps over max area - alternate shoulders on alternate days 3 pumps topical DAILY 75 grams 3RF 30 days E29.1 - Testicular hypofunction, R79.89 - Other specified abnormal findings of blood chemistry Patient Instructions: The patient had an opportunity to ask questions regarding the treatment plan. All questions were answered. Physical exam, labs, and imaging were discussed and reviewed in detail. As well as risks, benefits, and discussion of treatment choices. No major barriers to understanding were identified. The patient expressed understanding and agreement with the above treatment plan. The patient was made aware they should contact our office by phone for worsening of their current condition, the appearance of new symptoms, or with any questions or concerns. Compliance is encouraged with any medications and follow up testing that is ordered. It is a privilege to be allowed the opportunity to participate in? your urological care.? Again, if you have any questions or concerns If you have any questions or concerns please do not hesitate to contact me. The office is [phone]. This note is constructed using voice recognition software. While every effort has been made to ensure accuracy bread distributor errors may have been included. Yours sincerely, TU Lares Coding Level of Care Code Tele Est Pt Level 4 (37858) Diagnoses Varicocele I86.1 Hypogonadism in male E29.1 Erectile dysfunction N52.9 Premature ejaculation F52.4 Time Spent (min) 25
== END 2024-05-08 12:25 | disposition home or self-care (01) ==
LOC: HO.HUSH 12:03
PROVIDERS: PCP Internal Medicine; Visit Provider Nurse Practitioner Family
DX: I86.1 Scrotal varices (principal); E29.1 Testicular hypofunction; N52.9 Male erectile dysfunction, unspecified; F52.4 Premature ejaculation
CPT/HCPCS: 99214

== ENCOUNTER → 2024-05-08 12:03 | Outpatient (BNVA) | payer OTHER, SELFPAY | PROVIDERS: PCP Internal Medicine; Visit Provider Nurse Practitioner Family ==

== ENCOUNTER 2024-07-26 12:24 | Outpatient (REF) | payer OTHER, SELFPAY | END 2024-07-26 12:25 | disposition home or self-care (01) | LOC: HO.US 12:24 | PROVIDERS: PCP Internal Medicine; Visit Provider Nurse Practitioner Family | DX: I86.1 Scrotal varices (principal) | CPT/HCPCS: 76870 ==

== ENCOUNTER → 2024-07-26 12:26 | Outpatient (BNV) | payer OTHER, SELFPAY | PROVIDERS: PCP Internal Medicine; Visit Provider Radiology Diagnostic Radiology | DX: N43.3 Hydrocele, unspecified (principal); N50.3 Cyst of epididymis | CPT/HCPCS: 76870; 93976 ==

== ENCOUNTER 2024-08-07 08:17 | Outpatient (REF) | payer OTHER, SELFPAY ==
[2024-08-07 08:43] LABS: Hematocrit 46.3 % (42.0-52.0); Hemoglobin 15.9 g/dl (14.0-18.0); Mean Corpuscular HGB Conc 34.3 g/dl (31.0-36.0); Mean Corpuscular Hemoglobin 30.2 pg (27.0-33.0); Mean Corpuscular Volume 87.9 fL (80.0-98.0); Mean Platelet Volume 11.4 fL (9.4-12.4); Platelet Count 232 X10*3/uL (160-400); Red Blood Count 5.27 X10*6/uL (4.60-5.80); Red Cell Distribution Width 11.7 % (11.0-16.0); White Blood Count 8.4 X10*3/uL (4.8-10.8)
[2024-08-07 09:37] LABS: PSA,Total (Free>4and<10) 0.36 ng/mL (0.00-4.00)
[2024-08-11 18:22] LABS: Testosterone, Free 45.4 pg/mL (35.0-155.0); Testosterone, Total 228 ng/dL (250-1100)
== END 2024-08-07 08:18 | disposition home or self-care (01) ==
LOC: HO.LAB 08:17
PROVIDERS: PCP Internal Medicine; Visit Provider Nurse Practitioner Family
DX: E29.1 Testicular hypofunction (principal)
CPT/HCPCS: 36415; 84153; 84402; 84403; 85027

== ENCOUNTER 2024-09-17 12:56 | Outpatient (AMB) | payer OTHER, SELFPAY ==
--- NOTE | 2024-09-17 13:18 | A.OFFVIS_ITS ---
Intake Visit Reasons: follow up/labs(set) Intake Note: Patient presents today for follow up visit on: Erectile Dysfunction, hypogonadism, and labs * Testosterone: 228 * Free Testosterone: 45.4 * PSA: 0.36 Urology Medications: tadalafil, testosterone Blood Thinner: none Children'S Aide Required: Yes Children'S Aide Name: Adal [id number] Accompanied by: Unknown Allergies No Known Allergies Allergy (Verified 09/17/24 14:01) Medication List - Last Reconciled 09/17/24 by TU Lares levothyroxine 25 mcg PO DAILY methocarbamol 750 mg PO Q6H semaglutide (weight loss) (Wegovy) mg subcut tadalafil 20 mg PO ONCE PRN 30 days testosterone 3 pumps topical DAILY 30 days tizanidine 4 mg PO Q6-8H PRN HPI Comments Details: Tawanda is a very pleasant 39-year-old Grenadian-speaking male patient of Dr. Fuentes. He has a past medical history of back pain, obesity, hypothyroidism, and sleep apnea. He presents to the office today for follow-up of his hypogonadism and erectile dysfunction. Of note, during patient's last office visit via telehealth he had been reporting increased size in right testicle at which time a scrotal ultrasound was ordered as I was unable to assess patient given appointment was over the phone. Recent scrotal ultrasound results reviewed with the patient today. Normal testes bilaterally without masses, orchitis, or torsion noted. Moderate right hydrocele. No varicocele seen. Small 5 mm right epididymal head cyst. He does discuss at length his previous urological history in [place] where he underwent a varicocelectomy as well as a circumcision. He has a previous history at the age of 16 with the use of anabolic steroids. He is enquiring infertility workup as he discusses his partner and him have been trying to procreate. In discussion with the patient today and pit crew support worker it does appear he has had previous workup as he discusses being told his sperm was with low motility. He reports compliance with testosterone as prescribed. Recent labs were reviewed with the patient today as noted and trended below. PSA 03/14 0.2, 08/14 0.4 Testosterone 03/14 144, 08/14 228 Free testosterone 03/14 35.3, 08/14 45.4 H/H 03/14 14.8/44.4, 08/14 15.9/46.3 We discussed at length potential causes of urological issues and concerns. We discussed slight increase in testosterone therefore will increase to 4 pumps per day. Will also obtain semen analysis for further assessment evaluation. He continues to follow-up with his PCP regarding weight management. He reports being on Wegovy and has lost over 30 lb in the last 6 months intentionally. He discusses feeling issues with premature ejaculation when having intercourse with his however during masturbation does not feel he has any ED and or premature ejaculation. He discusses feeling symptoms started potentially 15-20 years ago after having a bilateral varicocelectomy in [place]. We discussed stimulation preceding sexual intercourse. He otherwise denies any issues with his urination. He denies urinary urgency, urinary frequency, incontinence, nocturia, hematuria, dysuria, foul smelling urine, changes to urinary stream, flank pain, fever, and or chills. Previous office note information: Erectile dysfunction: He presents today for further evaluation of ejaculatory disorder. Symptoms have been present for/since Several months. Current treatment includes none. Has used tadalafil in the past At this time he experiences erections are partial and adequate for vaginal penetration, that last until ejaculation. Currently they are in a stable relationship. 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 Review of Systems Const All systems reviewed & are unremarkable except as noted in HPI and below Eyes Reports no additional complaints ENT Reports no additional complaints Card Reports no additional complaints Resp Reports as per HPI GI Reports no additional complaints Reports as per HPI Musc Reports as per HPI Neuro Reports no additional complaints Psych Reports no additional complaints Endo Reports as per HPI Ronaldo/Lymph Reports no additional complaints Aller/Immun Reports no additional complaints Physical Exam Const General: cooperative, healthy appearing, comfortable, no acute distress, well developed, alert and awake Nutritional Appearance: overweight Orientation/consciousness: patient oriented x3 Limitations: no limitations HEENT Head: Yes normal to inspection, Yes normocephalic and Yes atraumatic Ears: hearing grossly normal bilaterally Eyes General: appearance normal, both eyes and all related structures Neck Neck: Yes normal visual inspection and Yes trachea midline Chest Chest palpation & inspection: normal inspection of the chest Resp Effort & Inspection: normal respiratory effort and able to speak in complete sentences Cardio Rate: regular rate GI Inspection: Yes normal to inspection General: Yes no CVA tenderness Back/Spine/Pelvis Back: no CVA tenderness Skin General skin exam: no rashes or lesions noted Neuro General: patient oriented x3 Extrem General: Yes normal to inspection Psych Appearance: grossly normal and well kempt Mental Status: mental status grossly normal Speech and movement: Normal speech and movement present and Clear speech present Affect: normal affect Attitude: cooperative Thought process: Normal thought process present Thought content: Normal thought content present Insight: Fair insight present (Psych) Judgement: Fair judgement present (Psych) Results AMB Urinalysis, Automated UA Leukoctes 0 Stephany/uL Last Edit by [employer] on 09/17/24 13:36 UA Nitrite Negative Last Edit by [employer] on 09/17/24 13:36 UA Urobilinogen 0.2 mg/dL Last Edit by [employer] on 09/17/24 13:36 UA Protein 0 mg/dL Last Edit by [employer] on 09/17/24 13:36 UA pH 6.0 Last Edit by [employer] on 09/17/24 13:36 UA Blood 0 Cj/uL Last Edit by [employer] on 09/17/24 13:36 UA Specific Homer 1.020 Last Edit by Reyes Lovelycarmen on 09/17/24 13:36 UA Ketone Negative Last Edit by Reyes Garcia on 09/17/24 13:36 UA Bilirubin 0 mg/dL Last Edit by Reyes Garcia on 09/17/24 13:36 UA Glucose 0 mg/dL Last Edit by Reyes Garcia on 09/17/24 13:36 Results Reviewed Results Reviewed: Laboratory Last Values Urine pH (Auto) 6.0 09/17/24 13:35 Specific Homer (Auto) 1.020 09/17/24 13:35 Urine Protein (Auto) 0 mg/dL 09/17/24 13:35 Glucose (UA)(Auto) 0 mg/dL 09/17/24 13:35 Urine Ketones (Auto) Negative 09/17/24 13:35 Urine Blood (Auto) 0 Cj/uL 09/17/24 13:35 Urine Nitrite (Auto) Negative 09/17/24 13:35 Urine Bilirubin (Auto) 0 mg/dL 09/17/24 13:35 Urine Urobilinogen (Auto) 0.2 mg/dL 09/17/24 13:35 Leukocyte Esterase (Auto) 0 Stephany/uL 09/17/24 13:35 Date of Service: 07/26/24 EXAMINATION: US SCROTUM FINDINGS: RIGHT: Right testicle measures 3.7 x 2.4 x 2.1 cm, volume 9.6 mL. No focal testicular parenchymal lesions are visualized. Mildly heterogeneous echotexture without discrete mass. Spectral Doppler analysis of the arterial and venous flow is normal in the right testis. Right epididymal head is normal in size. No right hydrocele or varicocele is seen. Right epididymal Doppler flow is normal. There is an epididymal head cyst measuring 0.5 x 0.4 x 0.6 cm. LEFT: Left testicle measures 3.7 x 1.9 x 2.5 cm, volume 9.3 mL. No focal testicular parenchymal lesions are visualized. Mildly heterogeneous echotexture without discrete mass. Spectral Doppler analysis of the arterial and venous flow is normal in the left testis. There are a few punctate tiny calcifications in the lower pole which do not meet criteria for microlithiasis. Left epididymal head is normal in size. No varicocele is evident. Left epididymal Doppler flow is normal. There is a moderate right-sided hydrocele. IMPRESSION: 1. Normal testes bilaterally without mass, orchitis, or torsion. 2. Moderate right hydrocele. 3. No varicocele seen. 4. Small 5 mm right epididymal head cyst. Assessment & Plan Assessment & Plan (1) Premature ejaculation: Code(s): F52.4 - Premature ejaculation Category: Medical (2) Hydrocele: Code(s): N43.3 - Hydrocele, unspecified Category: Medical (3) Hypogonadism in male: Code(s): E29.1 - Testicular hypofunction Category: Medical (4) Erectile dysfunction: Code(s): N52.9 - Male erectile dysfunction, unspecified Category: Medical Plan In office urinalysis results reviewed with the patient today; as noted above. Recent H&H, PSA, testosterone, and free testosterone results reviewed with the patient today. Will increase testosterone to 4 pumps per day. Recent scrotal ultrasound results reviewed with the patient today We discussed hydrocele and further intervention to include surveillance monitoring verses drainage in office verses surgical intervention with hydrocelectomy; risks and benefits of these interventions were discussed; will continue with surveillance monitoring at this time. Will obtain fellows kit for further assessment evaluation. Patient currently denies any bothersome urinary issues. He reports be happy with current voiding parameters. Will obtain PSA, CBC, and testosterone free and total in 3 months. Follow-up in 3 months with fellows kit and labs to be completed prior; or sooner with any issues, concerns, and or questions. Orders: Orders AMB Urinalysis Automated Today Z13.9 - Encounter for screening, unspecified Medications: Changed From testosterone apply 3 pumps over max area - alternate shoulders on alternate days 3 pumps topical DAILY 30 days 75 grams 3RF E29.1 - Testicular hypofunction, R79.89 - Other specified abnormal findings of blood chemistry To testosterone apply 4 pumps over max area - alternate shoulders on alternate days 3 pumps topical DAILY 30 days 75 grams 4RF E29.1 - Testicular hypofunction, R79.89 - Other specified abnormal findings of blood chemistry From testosterone apply 4 pumps over max area - alternate shoulders on alternate days 3 pumps topical DAILY 30 days 75 grams 4RF E29.1 - Testicular hypofunction, R79.89 - Other specified abnormal findings of blood chemistry To testosterone apply 4 pumps over max area - alternate shoulders on alternate days 4 pumps topical DAILY 30 days 75 grams 4RF E29.1 - Testicular hypofunction, R79.89 - Other specified abnormal findings of blood chemistry Patient Instructions: The patient had an opportunity to ask questions regarding the treatment plan. All questions were answered. Physical exam, labs, and imaging were discussed and reviewed in detail. As well as risks, benefits, and discussion of treatment choices. No major barriers to understanding were identified. The patient expressed understanding and agreement with the above treatment plan. The patient was made aware they should contact our office by phone for worsening of their current condition, the appearance of new symptoms, or with any questions or concerns. Compliance is encouraged with any medications and follow up testing that is ordered. It is a privilege to be allowed the opportunity to participate in? your urological care.? Again, if you have any questions or concerns If you have any questions or concerns please do not hesitate to contact me. The office is [phone]. This note is constructed using voice recognition software. While every effort has been made to ensure accuracy professional bass fisherman errors may have been included. Yours sincerely, TU Lares Coding Level of Care Code Est Pt Level 4 (43849) Diagnoses Premature ejaculation F52.4 Hydrocele N43.3 Hypogonadism in male E29.1 Erectile dysfunction N52.9 Time Spent (min) 35
--- OUTSIDE RECORDS SUMMARY | 2024-09-17 17:36 | XMS_ITS | Encounter Summary ---
Author Organization [employer] Address [address] [facility] 7 [place] [address] Care Team Providers Care Inspector Of Weights And Measures Name Role Phone Gisselle Fuentes MD Primary Care Provider [phone] Reason for Referral * Imaging (Routine) - Closed Specialty Diagnoses / Procedures Referred By Reshma younger Referred To Contact Radiology Diagnoses Abnormal LFTs Procedures US Abdomen Complete Gisselle Fuentes MD [address] [place] [address] Phone: tel: fax: [address] Phone: tel: fax: Referral ID Status Reason Start Date Expiration Date Visits Re quested Visits Authorized [id number] Closed 01/10/2024 01/09/2025 1 1 Encounter Details Date Type Department Care Team (Late st Contact Info) Description 01/10/2024 Orders Only [facility] MED & PEDS [address] [place], [place] [phone] Gisselle Fuentes MD [address] [place] [address] Abnormal LFTs (Primary Dx) Social History Tobacco Use Types Packs/Day Years Used Date Smoking Tobacco: Never Smokeless Tobacco: Never Depression Answer Date Recorded Patient Health Questionnaire-9 Score 0 01/10/2023 Housing Stability Answer Date Recorded What is your housing situation today? I have ramírez alvarez 06/27/[address] you li ve. Do you have problems with any of the following? None of the above 06/27/2023 Food Insecurity Answer Date Recorded Within the past 12 months, y ou worried that your food would run out before you got money to buy more: Never True 06/27/2023 Within the past 12 months,th e food you bought just didn't last and you didn't have enough money to get more: Never True 01/2023 Transportation Answer Date Recorded In the past 12 months, has l ack of transportation kept you from medical appts, meetings, work or from getting things needed for daily living? No 06/27/2023 Utilities Answer Date Recorded In the past 12 months, has t he electric, gas, oil or water company threatened to shut off services in your home? No 06/27/2023 Depression Answer Date Recorded Patient Health Questionnaire-2 Score 0 01/10/2023 Sex and Gender Information Value Date Recorded Sex Assigned at Male 06/21/2022 10:33 AM EDT Legal Sex Male 10:33 AM EDT Gender Identity Male 06/21/2022 10:33 AM EDT Sexual Orientation Straight 06/21/2022 10 :33 AM EDT documented as of this encounter Plan of Treatment Upcoming Encounters Date Type Department Care Team (Late st Contact Info) Description 09/27/2024 3:15 PM EST Office Visit [facility] MED & PEDS [address] [place] [address] Gisselle Fuentes MD [address] [place] [address] Scheduled Orders Name Type Priority Associated Diagnoses Orde r Schedule US Abdomen Complete Imaging Routine Abnormal LFTs Expected: 01/10/2024, Expires: 01/09/2025 documented as of this encounter Visit Diagnoses Diagnosis Abnormal LFTs- Primary documented in this encounter Additional Health Concerns Assessment Noted Time PHQ-9 Depression Total Score: 0 01/11/20 23 3:21 PM EDT documented as of this encounter Care Teams Inspector Of Weights And Measures Relationship Specialty Start Date End Date Gisselle Fuentes MD [address] [place] [address] PCP - General Internal Medicine 09/23/17 documented as of this encounter
--- OUTSIDE RECORDS SUMMARY | 2024-09-17 17:36 | XMS_ITS | Encounter Summary ---
Author Organization [employer] Address [address] [facility] [address] [place] [address] Care Team Providers Care Ballast Cleaning Machine Operator Name Role Phone Gisselle Fuentes MD Primary Care Provider [phone]- [phone] Encounter Details Date Type Department Care Team ([facility] Contact Info) Description 06/29/2024 Orders Only [facility] MED & PEDS [address] [place], [place] [phone] Gisselle Fuentes MD [address] [place] [address] Severe obesity (BMI >= 40) (CMS/HCC) (Primary Dx) Social History Tobacco Use Types [...] [facility] [address] [place] [address] Gisselle Fuentes MD [address] [place] [address] documented as of this encounter Visit Diagnoses Diagnosis Severe obesity (BMI >= 40) (CMS/HCC)- Primary documented in this encounter Additional Health Concerns Assessment Noted Time PHQ-9 Depression Total Score: 0 01/11/20 23 3:21 PM EDT documented as of this encounter Care Teams Ballast Cleaning Machine Operator Relationship Specialty Start Date End Date Gisselle Fuentes MD [address] [place] [address] PCP - General Internal Medicine 09/23/17 documented as of this encounter
--- OUTSIDE RECORDS SUMMARY | 2024-09-17 17:36 | XMS_ITS | Clinical Summary ---
Author Organization [facility] it Address [address] [place] [address] Care Team Providers Care Rap Artist Name Role Phone Gisselle Fuentes MD Primary Care Provider [phone] Social History Tobacco Use Types Packs/Day Years Used Date Smoking Tobacco: Never Assessed Sex and Gender Information Value Date Recorded Sex Assigned at Not on file Gender Identity Not on file Sexual Orientation Not on file Plan of Treatment Upcoming Encounters Date Type Department Care Team ([facility] st Contact Info) Description 12/04/2024 2:30 PM EDT Consult Bariatric Surgery - [place] [address] [place] [id number] Ramiro Evans MD [address] [facility] [address] [place] [address] Health Maintenance Due Date Last Done Comments DTaP,Tdap,and Td Vaccines (1 - Tdap) 2002 Hepatitis B Vaccines (1 of 3 - 19+ 3-dose series) 2002 Cholesterol Screening (Lipid Panel) 07/25/2022 Depression Screening 07/25/2022 HIV Screening 07/25/2022 Hepatitis C Screening 07/25/2022 Social Influencers of Health Screening 07/25/2022 COVID-19 Vaccine ( - 2023-2 5 season) 2024 Influenza Vaccine (#1) 2024 HIB Vaccines Aged Out No longer eligi ble based on patient's age to complete this topic HPV Vaccines Aged Out No longer eligi ble based on patient's age to complete this topic Hepatitis A Vaccines Aged Out No long er eligible based on patient's age to complete this topic IPV Vaccines Aged Out No longer eligi ble based on patient's age to complete this topic MMR Vaccines Aged Out No longer eligi ble based on patient's age to complete this topic Meningococcal ACWY Vaccine Aged Out N o longer eligible based on patient's age to complete this topic Pneumococcal Vaccine: Pediat rics (0 to 5 Years) and At-Risk Patients (6 to 64 Years) Aged Out No longer eligible b ased on patient's age to complete this topic RSV Immunization Patients Un carol 20 months Aged Out No longer eligible b ased on patient's age to complete this topic Varicella Vaccines Aged Out No longer eligible based on patient's age to complete this topic Care Teams Rap Artist Relationship Specialty Start Date End Date Gisselle Fuentes MD [address] [place] [address] PCP - General 05/26/22
--- OUTSIDE RECORDS SUMMARY | 2024-09-17 17:36 | XMS_ITS | Encounter Summary ---
Author Organization [employer] Address [address] [facility] [address] [place] [address] Care Team Providers Care Entomology Teacher Name Role Phone Gisselle Fuentes MD Primary Care Provider [phone]- [phone] Reason for Visit * Reason Comments Med Change Request Encounter Details Date Type Department Care Team ([facility] Contact Info) Description 04/24/2024 Refill [facility] MED & PEDS [address] [place], [place] [phone] Gisselle Fuentes MD [address] [place], [place] [phone] Severe obesity (BMI >= 40) (CMS/HCC) Social History Tobacco Use Types Packs/Day Years [...] Description 09/27/2024 3:15 PM EST Office Visit [facility] MED & PEDS [address] [place] [address] Gisselle Fuentes MD [address] [place] [address] documented as of this encounter Visit Diagnoses Diagnosis Severe obesity (BMI >= 40) (CMS/HCC) documented in this encounter Additional Health Concerns Assessment Noted Time PHQ-9 Depression Total Score: 0 01/11/20 23 3:21 PM EDT documented as of this encounter Care Teams Entomology Teacher Relationship Specialty Start Date End Date Gisselle Fuentes MD [address] [place] [address] PCP - General Internal Medicine 09/23/17 documented as of this encounter
--- OUTSIDE RECORDS SUMMARY | 2024-09-17 17:36 | XMS_ITS | Encounter Summary ---
Author Organization [email or web address] Address [address] [facility] [address] [place] [address] Care Team Providers Care Heel Turner Name Role Phone Gisselle Fuentes MD Primary Care Provider [phone]- [phone] Encounter Details Date Type Department Care Team ([facility] st Contact Info) Description 05/15/2024 Orders Only [facility] MED & PEDS [address] [place], [place] [phone] Gisselle Fuentes MD [address] [place] [address] Severe obesity (BMI >= 40) (CMS/HCC) (Primary [...] Description 09/27/2024 3:15 PM EST Office Visit [facility] MED & PEDS [address] [place] [address] Gisselle Fuentes MD [address] [place] [address] documented as of this encounter Visit Diagnoses Diagnosis Severe obesity (BMI >= 40) (CMS/HCC)- Primary documented in this encounter Additional Health Concerns Assessment Noted Time PHQ-9 Depression Total Score: 0 01/11/20 23 3:21 PM EDT documented as of this encounter Care Teams Heel Turner Relationship Specialty Start Date End Date Gisselle Fuentes MD [address] [place] [address] PCP - General Internal Medicine 09/23/17 documented as of this encounter
--- OUTSIDE RECORDS SUMMARY | 2024-09-17 17:36 | XMS_ITS | Clinical Summary ---
Author Organization [email or web address] Address [address] [facility] 7t [place] [address] Care Team Providers Care Public Health Informatician Name Role Phone Gisselle Fuentes MD Primary Care Provider Allergies No known active allergies Medications ondansetron ODT (Zofran-ODT) 4 MG disintegrating tablet DISSOLVE 1 TABLET UNDER THE TONGUE 3 TIMES DAILY 3 Active tadalafil (Cialis) 10 MG tablet TAKE ONE TABLET BY MOUTH EVERY DAY NEEDED FOR INTENDED ACTIVITY 3 Active famotidine (Pepcid) 20 MG tabletIndications:G astroesophageal reflux disease without esophagitis Take 1 tablet (20 mg) by mouth 2 times daily. 60 tablet 11 3 Active levothyroxine (Synthroid, Levoxyl) 25 MCG tabletIndications:E levated TSH TOME ROGELIO TABLETA (25 MCG) POR VIA ORAL ANTES DEL DESAYUNO 90 tablet 3 4 Active Semaglutide-Weight Management (Wegovy) 1.7 MG/0.75ML solution auto-injectorIndica tions:Severe obesity (BMI >= 40) (CMS/HCC) Inject 0.31 mL (0.7 mg) under the skin 1 (one) time per week. 2 mL 1 4 Active Semaglutide-Weight Management (Wegovy) 2.4 MG/0.75ML solution auto-injectorIndica tions:Severe obesity (BMI >= 40) (CMS/HCC) INJECT 0.75 ML (2.4 MG) UNDER THE SKIN 1 (ONE) TIME PER WEEK. 2 mL 1 4 Active Active Problems Problem Noted Date Diagnosed Date Abnormal LFTs 01/13/2018 Encounters Date Type Department Care Team Description 08/07/2024 Orders Only GENERIC EXTERNAL DATA DEPARTMENT Provider, [facility] External Data 07/26/2024 Orders Only [facility] External Provider, [facility] 07/23/2024 Refill [facility] [address] [place] [address] Gisselle Fuentes MD Severe obesity (BMI >= 40) ([facility]) 07/23/2024 Orders Only [facility] [address] [place] [address] Gisselle Fuentes MD Severe obesity (BMI >= 40) ([facility]) (Primary Dx) 07/23/[address] [address] Gisselle Fuentes MD Medication Question 06/29/2024 Orders Only [facility] [address] [place] [address] Gisselle Fuentes MD Severe obesity (BMI >= 40) ([facility]) (Primary Dx) 06/29/2024 Telephone [facility] [address] [place] [address] Gisselle Fuentes MD Medication Question 06/28/2024 Telephone [facility] [address] [place] [address] Gisselle Fuentes MD appt 06/26/[address] [address] Gisselle Fuentes MD Prior Authorization; Medication Question 06/22/[address] [address] Gisselle Fuentes MD Medication Question from Last 3 Months Social History Tobacco Use Types Packs/Day Years Used Date Smoking Tobacco: Never Smokeless Tobacco: Never Tobacco Cessation:Counseling Given: No Depression Answer Date Recorded Patient Health Questionnaire-9 [...] Orientation Straight 06/21/2022 10 :33 AM EDT Last Filed Vital Signs Vital Sign Reading Time Taken Comments Blood Pressure 142/80 01/06/2024 2:39 PM EDT Pulse 79 01/06/2024 2:39 PM EDT Temperature 36.3 ??C (97.3 ??F) 01/06/2024 2:39 PM ED T Respiratory Rate 19 01/06/2024 2:39 PM EDT Oxygen Saturation 99% 01/06/2024 2:39 PM EDT Inhaled Oxygen Concentration - - Weight 153 kg (338 lb) 01/06/2024 2:39 PM EDT Height 180.3 cm (5' 11 ) 01/06/2024 2:39 PM EDT Body Mass Index 47.14 01/06/2024 2:39 PM EDT Plan of Treatment Upcoming Encounters Date Type Department Care Team (Late st Contact Info) Description 09/27/2024 3:15 PM EST Office Visit [facility] [address] [place] [address] Gisselle Fuentes MD [address] [place] [address] Health Maintenance Due Date Last Done Comments Alcohol/Substance Use Screening 1995 Family Planning (PISQ) 1998 Hepatitis B Vaccines (1 of 3 - 19+ 3-dose series) 2002 Depression Screening 01/11/2024 01/10/2023, 01/10/2023 COVID-19 Vaccine (3 - 2023-2 5 season) 2024 01/03/2021, 12/13/2020 Influenza Vaccine (#1) 2024 9, 09/23/2017 SDOH Screening 12/29/2024 12/30/2023 Tobacco Screening 01/05/2025 01/06/2024 DTaP/Tdap/Td Vaccines (2 - T d or Tdap) 09/23/2027 09/23/2017 Lipid Panel 01/08/2029 01/09/2024 Zoster Vaccines (1 of 2) 2033 RSV Patients and Patients Aged 60 years or older (1 - 1-dose 75+ series) 2058 HIV Screening Completed 09/21/2021 Hepatitis C Screening Completed 09/21/2021 HIB Vaccines Aged Out No longer eligi [...] patient's age to complete this topic Meningococcal Vaccine Aged Out No skyler sharona eligible based on patient's age to complete this topic Pneumococcal Vaccine: Pediatrics (0 to 5 Years) and At-Risk Patients (6 to 64 Years) Aged Out No longer eligible b ased on patient's age to complete this topic RSV under 20 months Aged Out No longe r eligible based on patient's age to complete this topic Rotavirus Vaccines Aged Out No longer eligible based on patient's age to complete this topic Procedures Procedure Name Priority Date/Time Associated Diagnosis Comments TESTOSTERONE, FREE (DIALYSIS) AND TOTAL,MS Routine 08/07/2024 8:30 AM EST PSA, TOTAL WITH REFLEX TO PSA, FREE Routine 08/07/2024 8:30 AM EST CBC Routine 08/07/2024 8:30 AM EST US SCROTUM Routine 07/26/2024 12:43 PM EST LIPID PANEL, STANDARD Routine 01/09/2024 8:46 AM EDT Annual physical exam Severe obesity (BMI >= 40) (CMS/HCC) Abnormal LFTs ZZZ HISTORICAL HEPATITIS C AB W/REFL TO HCV RNA, QN, PCR Routine 09/21/2021 11:50 AM EST HIV 1/2 ANTIGEN/ANTIBODY, FOURTH GENERATION W/RFL Routine 09/21/2021 11:50 AM EST from Last 3 Months or Most Recently Relevant to Health Maintenance Results * PSA, Total With Reflex to PSA, Free (08/07/2024 8:30 AM EST) PSA,Total (Free>4and<10) 0.36 0.00 - 4.00 ng/mL [facility] Comment:A Free PSA was not p erformed: The percentage of Free PSA can be used to enhance the differentiation of prostate cancer from benign prostatic disease in subjects whose PSA levels are between 4.0 and 10.0 ng/mL. For subjects whose PSA levels are below 4.0 or above 10.0 ng/mL, the risk of prostate cancer is determined on the basis of the PSA alone. Therefore the % Free PSA is recommended only for those subjects whose PSA levels are between 4.0 and 10.0 ng/mL.PSA methodology: Cottrell Alinity i ChemiluminescentMicroparticle Immunoassay (CMIA) 08/07/2024 8:30 AM EST 08/07/2024 8:30 AM EST us Generic External Data Provider LAB BLOOD ORDERAB LES Final Result Performing Organization Address City/[facility]/ZIP Co de Phone Number [facility] [address] [place] [phone] [phone] * CBC (08/07/2024 8:30 AM EST) Pathologist [facility] White Blood Count 8.4 4.8 - 10.8 X10*3/uL [facility] Red Blood Count 5.27 4.60 - 5.80 X10*6/uL [facility] Hemoglobin 15.9 14.0 - 18.0 g/dl [facility] Hematocrit 46.3 42.0 - 52.0 % [facility] Mean Corpuscular Volume 87.9 80.0 - 98.0 fL [facility] Mean Corpuscular Hemoglobin 30.2 27.0 - 33.0 pg [facility] Mean Corpuscular HGB Conc 34.3 31.0 - 36.0 g/dl [facility] Red Cell Distribution Width 11.7 11.0 - 16.0 % [facility] Platelet Count 232 160 - 400 X10*3/uL [facility] Mean Platelet Volume 11.4 9.4 - 12.4 fL [facility] NRBC Pct Auto 0.0 0.0 - 0.2 /100WBC [facility] NRBC Abs Auto 0.000 0.0 - 0.012 X10*3/uL [facility] 08/07/2024 8:30 AM EST 08/07/2024 8:30 AM EST Generic External Data Provider LAB BLOOD ORDERAB LES Final Result Performing Organization Address [facility]/ZIP Co de Phone Number [facility] [address] [place] [phone] * (ABNORMAL) Testosterone, Free (Dialysis) And Total, MS (08/07/2024 8:30 AM EST) Pathologist [facility] Testosterone, Total 228(A) 250 - 1100 ng/dL [facility] Comment:For additional infor shaye, please refer tohttp://education.Rubysophic.CELLFOR/faq/LlhfwPgperlokyhofBACCQSDBO351(This link is being provided for informational/educational purposes only.)This test was developed and its analytical performancecharacteristics have been determined by [place]. It hasnot been cleared or approved by the U.S. Food and DrugAdministration. This assay has been validated pursuantto the CLIA regulations and is used for clinicalpurposes. Testosterone, Free 45.4 35.0 - 155.0 pg/mL [facility] Comment:This test was develo ped and its analytical performancecharacteristics have been determined by [place]. It hasnot been cleared or approved by the U.S. Food and DrugAdministration. This assay has been validated pursuantto the CLIA regulations and is used for clinicalpurposes.THIS TEST WAS PERFORMED AT:[employer]/[id number] [place] [phone] URIOSTEGUI MD,PHD 08/07/2024 8:30 AM EST 08/07/2024 8:30 AM EST us Generic External Data Provider LAB BLOOD ORDERAB LES Final Result [facility] [address] [place] [phone] * US Scrotum (07/26/2024 12:43 PM EST) Anatomical Region Laterality Modality Body Ultrasound 07/26/2024 12:4 3 PM EST Narrative 09/14/2024 12:04 PM EST ? [facility] ?[address] ?[place] [address] ? Ultrasound Report ? Signed ? Patient: Orlando Hardy,Tawanda ?MR#: [id number] ?? [id number] ? : 1985 ?Acct:[id number] ? Age/Sex: 38 / M ?ADM Date: 12/05/24 ? Loc: HO.US ? Attending Dr: Aimee MAE ? Ordering Physician: Aimee Mena ?? Date of Service: 07/26/24 ?? Procedure(s): US scrotum ?? Accession Number(s): [id number] ? cc: Gisselle Fuentes MD; Aimee Mena ? EXAMINATION: ?? US SCROTUM ? 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 ? COMPARISON: ?? None available. ? TECHNIQUE: ?? A sonogram of the scrotum was performed assessing luo-scale appearance ?? and color Doppler flow. Spectral Doppler analysis of the arterial and ?? venous flow were performed in the testes bilaterally. ? Exam submitted for review 09/14/2024 11:01 AM GIFT WRAPPER. ? FINDINGS: ? RIGHT: Right testicle measures 3.7 x 2.4 x 2.1 cm, volume 9.6 mL. No ?? focal testicular parenchymal lesions are visualized. Mildly ?? heterogeneous echotexture without discrete mass. Spectral Doppler ?? analysis of the arterial and venous flow is normal in the right testis. ? Right epididymal head is normal in size. No right hydrocele or ?? varicocele is seen. Right epididymal Doppler flow is normal. There is ?? an epididymal head cyst measuring 0.5 x 0.4 x 0.6 cm. ? LEFT: Left testicle measures 3.7 x 1.9 x 2.5 cm, volume 9.3 mL. No ?? focal testicular parenchymal lesions are visualized. Mildly ?? heterogeneous echotexture without discrete mass. Spectral Doppler ?? analysis of the arterial and venous flow is normal in the left testis. ?? There are a few punctate tiny calcifications in the lower pole which do ?? not meet criteria for microlithiasis. ? Left epididymal head is normal in size. No varicocele is evident. Left ?? epididymal Doppler flow is normal. There is a moderate right-sided ?? hydrocele. ? US/US scrotum ?? IMPRESSION: ?? 1. Normal testes bilaterally without mass, orchitis, or torsion. ?? 2. Moderate right hydrocele. ?? 3. No varicocele seen. ?? 4. Small 5 mm right epididymal head cyst. ? Electronically signed by: ??Neto Montgomery MD ??09/14/2024 12:02 PM EST RP ? Dictated By: ?Neto Montgomery MD ? Signed By: ?<Electronically signed by Neto Montgomery MD in OV> ?09/14/24 1202 ? DD/ 1243 ? TD/TT: 07/26/24 1250 ? Skilled Trades Teacher: ? Procedure Note Donpablointerpreter, Image - 09/14/[address] [address] Ultrasound Report Signed Patient: David Casiano#: M [id number] : 1985Acct:[id number] Age/Sex: 38 / MADM Date: 07/26/24 Loc: HO.US Attending Dr: Aimee MAE Ordering Physician: Aimee Mena Date of Service: 07/26/24 Procedure(s): US scrotum Accession Number(s): [id number] cc: Gisselle Fuentes MD; Aimee Mena EXAMINATION: US SCROTUM CLINICAL INFORMATION: Scrotal varices. COMPARISON: None available. TECHNIQUE: A sonogram of the scrotum was performed assessing luo-scale appearance and color Doppler flow. Spectral Doppler analysis of the arterial and venous flow were performed in the testes bilaterally. Exam submitted for review 09/14/2024 11:01 AM GIFT WRAPPER. FINDINGS: RIGHT: Right testicle measures 3.7 x 2.4 x 2.1 cm, volume 9.6 mL. No focal testicular parenchymal lesions are visualized. Mildly heterogeneous echotexture without discrete mass. Spectral Doppler analysis of the arterial and venous flow is normal in the right testis. Right epididymal head is normal in size. No right hydrocele or varicocele is seen. Right epididymal Doppler flow is normal. There is an epididymal head cyst measuring 0.5 x 0.4 x 0.6 cm. LEFT: Left testicle measures 3.7 x 1.9 x 2.5 cm, volume 9.3 mL. No focal testicular parenchymal lesions are visualized. Mildly heterogeneous echotexture without discrete mass. Spectral Doppler analysis of the arterial and venous flow is normal in the left testis. There are a few punctate tiny calcifications in the lower pole which do not meet criteria for microlithiasis. Left epididymal head is normal in size. No varicocele is evident. Left epididymal Doppler flow is normal. There is a moderate right-sided hydrocele. US/US scrotum IMPRESSION: 1. Normal testes bilaterally without mass, orchitis, or torsion. 2. Moderate right hydrocele. 3. No varicocele seen. 4. Small 5 mm right epididymal head cyst. Electronically signed by: Neto Montgomery MD 09/14/2024 12:02 PM [facility] Dictated By: Neto Montgomery MD Signed By: <Electronically signed by Neto Montgomery MD in OV> 09/14/24 1202 DD/ 1243 TD/TT: 07/26/24 1250 Skilled Trades Teacher: us [facility] External Provider IMG US PROCEDURES Final Result * (ABNORMAL) Lipid Panel, Standard (01/09/2024 8:46 AM EDT) Triglycerides 83 <150 mg/dL [facility] Comment:Desirable Triglyceri de: less than 150 mg/dLBorderline High Triglyceride 150-199 mg/dLHigh Triglyceride: 200-499 mg/dLVery High Triglyceride: greater than or equal to 5OO mg/dL Cholesterol 141 <200 mg/dL [facility] Comment:Desirable Cholestero l: less than 200 mg/dLBorderline High Cholesterol: 200-239 mg/dLHigh Cholesterol: greater than 239 mg/dL LDL Cholesterol Calculated 90 <100 mg/dL [facility] Comment:Desirable LDL: less than 100 mg/dLNear Optimal/Above Optimal LDL: 110- 129 mg/dLBorderline High LDL: 130-159 mg/dLHigh LDL: 160-189 mg/dLVery High LDL: greater than or equal to 190 mg/dL HDL Cholesterol 35(L) >40 mg/dL [facility] Comment:Desirable HDL: great er than 40 mg/dL Note: This HDL assay may give artificially low results in patients with liver disease. Blood Venous blood specimen / Unknown 01/09/2024 8:46 AM EDT 01/09/2024 2:27 PM EDT us Gisselle Fuentes MD LAB BLOOD ORDERABLES Final Result [facility] [address] [place] [address] [phone] * HEPATITIS C AB W/REFL TO HCV RNA, QN, PCR (09/21/2021 11:50 AM EST) HEPATITIS C ANTIBODY NON-REACT [facility] NON-REACT [facility] INDEX 0.12 <1.00 [facility] Comment: ?? HCV antibody was non-reactive. There is no laboratory ?? evidence of HCV infection. ?? In most cases, no further action is required. However, if recent HCV exposure is suspected, a test for HCV RNA (test code 55058) is suggested. ?? For additional information please refer to http://IdentiGEN.APImetrics/faq/HBH80h5 (This link is being provided for informational/ educational purposes only.) ?? 09/21/2021 11:5 0 AM EST Gisselle Fuentes MD HISTORICAL/NON ORDERABLE LA BS Final Result Performing Organization Address City/[facility]/ZIP Co de Phone Number [facility] [address] * HIV 1/2 ANTIGEN/ANTIBODY,FOURTH GENERATION W/RFL (09/21/2021 11:50 AM EST) HIV-1/2 ANTIGEN AND ANTIBODIES, 4TH GENERATION W/ REFLEX NON-REACT [facility] NON-REACT [facility] Comment: HIV-1 antigen and HIV-1/HIV-2 antibodies were not detected. There is no laboratory evidence of HIV infection. ?? PLEASE NOTE: This information has been disclosed to you from records whose confidentiality may be protected by state law. ??If your state requires such protection, then the state law prohibits you from making any further disclosure of the information without the specific written consent of the person to whom it pertains, or as otherwise permitted by law. A general authorization for the release of medical or other information is NOT sufficient for this purpose. ? For additional information please refer to http://education.APImetrics/faq/DSR613 (This link is being provided for informational/ educational purposes only.) ? The performance of this assay has not been clinically validated in patients less than 2 years old. ?? 09/21/2021 11:5 0 AM EST us Gisselle Fuentes MD LAB BLOOD ORDERABLES Final Result [facility] [address] from Last 3 Months or Most Recently Relevant to Health Maintenance Insurance [facility] Care Teams Public Health Informatician Relationship Specialty Start Date End Date Gisselle Fuentes MD [address] [place] [phone] PCP - General Internal Medicine 09/23/17
--- OUTSIDE RECORDS SUMMARY | 2024-09-17 17:36 | XMS_ITS | Encounter Summary ---
Author Organization [employer] Address [address] [facility] [address] [place] [address] Care Team Providers Care Surgical Manager Name Role Phone Gisselle Fuentes MD Primary Care Provider [phone] Encounter Details Date Type Department Care Team ([facility] st Contact Info) Description 04/24/2024 Orders Only [facility] [address] [place], [place] [phone] Gisselle Fuentes MD [address] [place] [address] Severe obesity (BMI >= 40) (CMS/HCC) (Primary [...] Description 09/27/2024 3:15 PM EST Office Visit [facility] [address] [place] [address] Gisselle Fuentes MD [address] [place] [address] documented as of this encounter Visit Diagnoses Diagnosis Severe obesity (BMI >= 40) (CMS/HCC)- Primary documented in this encounter Additional Health Concerns Assessment Noted Time PHQ-9 Depression Total Score: 0 01/11/20 23 3:21 PM EDT documented as of this encounter Care Teams Surgical Manager Relationship Specialty Start Date End Date Gisselle Fuentes MD [address] [place] [address] PCP - General Internal Medicine 09/23/17 documented as of this encounter
--- OUTSIDE RECORDS SUMMARY | 2024-09-17 17:36 | XMS_ITS | Encounter Summary ---
Author Organization [employer] Address [address] [facility] [address] [place] [address] Care Team Providers Care Global Account Manager Name Role Phone Gisselle Fuentes MD Primary Care Provider [phone]- [phone] Reason for Visit * Reason Onset Date Comments Medication Question 04/20/2024 Encounter Details Date Type Department Care Team ([facility] st Contact Info) Description 04/20/2024 Telephone [facility] [address] [place] [address] Gisselle Fuentes MD [address] [place], [place] [phone] Medication Question Social History Tobacco Use Types Packs/Day Years [...] AM EDT documented as of this encounter Miscellaneous Notes * Telephone Encounter - Jocelyne Sandhu LPN - 04/24/2024 8:00 AM EDT Please review message below. * Telephone Encounter - Tate Reeves - 04/20/2024 4:09 PM EDT Tc from pt's spouse requesting increase of Wegovy to be sent to [facility] pharmacy . documented in this encounter Plan of Treatment Upcoming Encounters Date Type Department Care Team (Late st Contact Info) Description 09/27/2024 3:15 PM EST Office Visit [facility] [address] [place] [address] Gisselle Fuentes MD [address] [place] [address] documented as of this encounter Visit Diagnoses Not on filedocumented in this encounter Additional Health Concerns Assessment Noted Time PHQ-9 Depression Total Score: 0 01/11/20 23 3:21 PM EDT documented as of this encounter Care Teams Global Account Manager Relationship Specialty Start Date End Date Gisselle Fuentes MD [address] [place] [address] PCP - General Internal Medicine 09/23/17 documented as of this encounter
--- OUTSIDE RECORDS SUMMARY | 2024-09-17 17:36 | XMS_ITS | Encounter Summary ---
Author Organization [employer] Address [address] 7t [place] [address] Care Team Providers Care Economic History Teacher Name Role Phone Gisselle Fuentes MD Primary Care Provider +1- [phone] Encounter Details Date Type Department Care Team (Late st Contact Info) Description 07/26/2024 Orders Only [facility] External Provider, [facility] Social History Tobacco Use Types Packs/Day Years [...] Description 09/27/2024 3:15 PM EST Office Visit [facility] CHC MED & PEDS [address] [place] [address] Gisselle Fuentes MD 505 [facility] [place] [address] documented as of this encounter Procedures Procedure Name Priority Date/Time Associated Diagnosis Comments US SCROTUM Routine 07/26/2024 12:43 PM EST documented in this encounter Results * US Scrotum (07/26/2024 12:43 PM EST) Anatomical Region Laterality Modality Body Ultrasound 07/26/2024 12:4 3 PM EST Narrative 09/14/2024 12:04 PM EST ? [facility] ?[address] ?[place] [address] ? Ultrasound Report ? Signed ? Patient: Tawanda Casiano ?MR#: M ?? [id number] ? : 1985 ?Acct:[id number] ? Age/Sex: 38 / M ?ADM Date: 07/26/24 ? Loc: HO.US ? Attending Dr: Aimee MAE ? Ordering Physician: Aimee Mena ?? Date of Service: 07/26/24 ?? Procedure(s): US scrotum ?? Accession Number(s): [id number] ? cc: Gisselle Fuentes MD; Aimee Mena [facility]- ? EXAMINATION: ?? US SCROTUM ? 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 ? COMPARISON: ?? None available. ? TECHNIQUE: ?? A sonogram of the scrotum was performed assessing luo-scale appearance ?? and color Doppler flow. Spectral Doppler analysis of the arterial and ?? venous flow were performed in the testes bilaterally. ? Exam submitted for review 09/14/2024 11:01 AM FERRYBOAT OPERATOR HELPER. ? FINDINGS: ? RIGHT: Right testicle measures [...] Montgomery MD ??09/14/2024 12:02 PM EST RP ?? Workstation: [id number] ? Dictated By: ?Neto Montgomery MD ? Signed By: ?<Electronically signed by Neto Montgomery MD in OV> ?09/14/24 1202 ? DD/ 1243 ? TD/TT: 07/26/24 1250 ? Process Consultant: ? Procedure Note Jax, Image - 09/14/[address] [address] Ultrasound Report Signed Patient: David Casiano#: M [id number] : 1985Acct:[id number] Age/Sex: 38 / MADM Date: 07/26/24 Loc: HO.US Attending Dr: Aimee MAE Ordering Physician: Aimee Mena Date of Service: 07/26/24 Procedure(s): US scrotum Accession Number(s): [id number] cc: Gisselle Fuentes MD; Aimee Mena EXAMINATION: US SCROTUM CLINICAL INFORMATION: Scrotal varices. COMPARISON: None available. TECHNIQUE: A sonogram of the scrotum was performed assessing luo-scale appearance and color Doppler flow. Spectral Doppler analysis of the arterial and venous flow were performed in the testes bilaterally. Exam submitted for review 09/14/2024 11:01 AM FERRYBOAT OPERATOR HELPER. FINDINGS: RIGHT: Right testicle measures 3.7 x [...] by: Neto Montgomery MD 09/14/2024 12:02 PM [facility] Dictated By: Neto Montgomery MD Signed By: <Electronically signed by Neto Montgomery MD in OV> 09/14/24 1202 DD/ 1243 TD/TT: 07/26/24 1250 Process Consultant: [facility] External Provider IMG US PROCEDURES Final Result documented in this encounter Visit Diagnoses Not on filedocumented in this encounter Additional Health Concerns Assessment Noted Time PHQ-9 Depression Total Score: 0 01/11/20 23 3:21 PM EDT documented as of this encounter Care Teams Economic History Teacher Relationship Specialty Start Date End Date Gisselle Fuentes MD [address] [place] [address] PCP - General Internal Medicine 09/23/17 documented as of this encounter
--- OUTSIDE RECORDS SUMMARY | 2024-09-17 17:36 | XMS_ITS | Encounter Summary ---
Author Organization [employer] Address [address] [facility] 7t [place] [address] Care Team Providers Care Montessori Preschool Teacher Name Role Phone Gisselle Fuentes MD Primary Care Provider +1- [phone] Encounter Details Date Type Department Care Team (Late st Contact Info) Description 01/18/2024 Orders Only [facility] [address] [place] [address] Provider, MD Lianet Social History Tobacco Use Types Packs/Day Years Used Date Smoking Tobacco: Never Smokeless Tobacco: Never Depression Answer Date Recorded Patient Health Questionnaire-9 Score 0 01/10/2023 Housing Stability Answer Date Recorded What is your housing situation today? I have ramírezclaudia alvarez 06/27/[address] you [...] Description 09/27/2024 3:15 PM EST Office Visit [facility] CHC MED & PEDS 505 [place] [address] Gisselle Fuentes MD 505 [place] [address] documented as of this encounter Procedures Procedure Name Priority Date/Time Associated Diagnosis Comments US LIVER Routine 01/18/2024 2:29 PM EDT documented in this encounter Results * US LIVER (01/18/2024 2:29 PM EDT) Anatomical Region Laterality Modality Abdomen, Liver Ultrasound us Historical Provider MD VEGA US PROCEDURES Final R esult documented in this encounter Visit Diagnoses Not on filedocumented in this encounter Additional Health Concerns Assessment Noted Time PHQ-9 Depression Total Score: 0 01/11/20 23 3:21 PM EDT documented as of this encounter Care Teams Montessori Preschool Teacher Relationship Specialty Start Date End Date Gisselle Fuentes MD [address] [place] [address] PCP - General Internal Medicine 09/23/17 documented as of this encounter
--- OUTSIDE RECORDS SUMMARY | 2024-09-17 17:36 | XMS_ITS | Encounter Summary ---
Author Organization [employer] Address [address] 7t [place] [address] Care Team Providers Care Lift Builder Whole Name Role Phone Gisselle Fuentes MD Primary Care Provider +1- [phone] Encounter Details Date Type Department Care Team ([facility] Contact Info) Description 07/23/2024 Orders Only [facility] MED & PEDS 505 [place], [place] [phone] Gisselle Fuentes MD 505 [place] [address] Severe obesity (BMI >= 40) (CMS/HCC) (Primary [...] Description 09/27/2024 3:15 PM EST Office Visit [facility] MED & PEDS 505 [place] [address] Gisselle Fuentes MD 505 [place] [address] documented as of this encounter Visit Diagnoses Diagnosis Severe obesity (BMI >= 40) (CMS/HCC)- Primary documented in this encounter Additional Health Concerns Assessment Noted Time PHQ-9 Depression Total Score: 0 01/11/20 23 3:21 PM EDT documented as of this encounter Care Teams Lift Builder Whole Relationship Specialty Start Date End Date Gisselle Fuentes MD 505 [place] [address] PCP - General Internal Medicine 09/23/17 documented as of this encounter
--- OUTSIDE RECORDS SUMMARY | 2024-09-17 17:36 | XMS_ITS | Encounter Summary ---
Author Organization [employer] Address [address] 7[address] [place] [address] Care Team Providers Care Sales Correspondent Name Role Phone Gisselle Fuentes MD Primary Care Provider [phone]- [phone] Reason for Visit * Reason Onset Date Comments Medication Question 07/23/2024 Encounter Details Date Type Department Care Team ([facility] st Contact Info) Description 07/23/2024 Telephone [facility] MEDICINE [address] [place] [address] Gisselle Fuentes MD [address] [place], [place] [phone] Medication Question Social History Tobacco Use Types [...] encounter Miscellaneous Notes * Telephone Encounter - Tate Reeves - 07/23/2024 1:20 PM EST TC from pt regarding Semaglutide-Weight Management (Wegovy) 1.7 MG/0.75ML solution auto-injector . Unsure if provider wanted to increase dosage to 2.4 . documented in this encounter Plan of Treatment Upcoming Encounters Date Type Department Care Team (Late st Contact Info) Description 09/27/2024 3:15 PM EST Office Visit [facility] CHC MED & PEDS 505 [place] [address] Gisselle Fuentes MD [address] [place] [address] documented as of this encounter Visit Diagnoses Not on filedocumented in this encounter Additional Health Concerns Assessment Noted Time PHQ-9 Depression Total Score: 0 01/11/20 23 3:21 PM EDT documented as of this encounter Care Teams Sales Correspondent Relationship Specialty Start Date End Date Gisselle Fuentes MD [address] [place] [address] PCP - General Internal Medicine 09/23/17 documented as of this encounter
--- OUTSIDE RECORDS SUMMARY | 2024-09-17 17:36 | XMS_ITS | Encounter Summary ---
Author Organization [employer] Address [address] [facility] 7t [place] [address] Care Team Providers Care Ore Smelter Name Role Phone Gisselle Fuentes MD Primary Care Provider Reason for Visit * Reason Onset Date Comments Prior Authorization 06/26/2024 Medication Question 06/26/2024 Encounter Details Date Type Department Care Team ([facility] st Contact Info) Description 06/26/2024 Telephone [facility] MEDICINE [address] [place] [address] Gisselle Fuentes MD [address] [place], [place] [phone] Prior Authorization; Medication Question Social History Tobacco Use Types [...] encounter Miscellaneous Notes * Telephone Encounter - Altagracia Skelton RN - 06/26/2024 10:46 AM EST PA printed and faxed to as requested. Pending insurance decision. * Telephone Encounter - Alejandra Kramer LPN - 06/26/2024 10:35 AM EST Please review Message below Pa was generated for 0.5 and sent to Altagracia IZAGUIRRE Tc from pt indicated he's using using Wegovy 1mg, pt aslo informs he needs a PA for 0.5 and he's confused on which one he's suppose to be on either 0.5 or 1mg , * Telephone Encounter - No Bauman - 06/26/2024 8:58 AM EST Tc from pt indicated he's using using Wegovy 1mg, pt aslo informs he needs a PA for 0.5 and he's confused on which one he's suppose to be on either 0.5 or 1mg , documented in this encounter Plan of Treatment Upcoming Encounters Date Type Department Care Team (Late st Contact Info) Description 09/27/2024 3:15 PM EST Office Visit [facility] MED & PEDS [address] [place] [address] Gisselle Fuentes MD 505 [place] [address] documented as of this encounter Visit Diagnoses Not on filedocumented in this encounter Additional Health Concerns Assessment Noted Time PHQ-9 Depression Total Score: 0 01/11/20 23 3:21 PM EDT documented as of this encounter Care Teams Ore Smelter Relationship Specialty Start Date End Date Gisselle Fuentes MD 505 [place] [address] PCP - General Internal Medicine 09/23/17 documented as of this encounter
== END 2024-09-17 14:07 | disposition home or self-care (01) ==
PROVIDERS: PCP Internal Medicine; Visit Provider Nurse Practitioner Family
DX: F52.4 Premature ejaculation (principal); N43.3 Hydrocele, unspecified; E29.1 Testicular hypofunction; N52.9 Male erectile dysfunction, unspecified; Z13.9 Encounter for screening, unspecified
CPT/HCPCS: 99214

== ENCOUNTER → 2024-09-17 12:56 | Outpatient (BNVA) | payer OTHER, SELFPAY | PROVIDERS: PCP Internal Medicine; Visit Provider Nurse Practitioner Family | DX: N52.9 Male erectile dysfunction, unspecified (principal); E29.1 Testicular hypofunction; F52.4 Premature ejaculation; N43.3 Hydrocele, unspecified; R79.89 Other specified abnormal findings of blood chemistry | CPT/HCPCS: 81003; 99212 ==

== ENCOUNTER 2024-11-30 11:40 | Outpatient (REF) | payer OTHER, SELFPAY ==
--- OUTSIDE RECORDS SUMMARY | 2024-11-30 12:39 | XMS_ITS | Encounter Summary ---
Author Organization [employer] Address [address] 7t [place] [address] Care Team Providers Care Hazmat Cdl A Driver Name Role Phone Gisselle Fuentes MD Primary Care Provider [phone] Encounter Details Date Type Department Care Team ([facility] st Contact Info) Description 10/03/2024 Orders Only [facility] MED & PEDS [address] [place], [place] [phone] Gisselle Fuentes MD 505 [place] [address] Social History Tobacco Use Types Packs/Day Years Used Date Smoking Tobacco: Never Smokeless Tobacco: Never Depression Answer Date Recorded Patient Health Questionnaire-9 Score 5 10/01/2024 Patient Health Questionnaire-9 Score 5 10/01/2024 Last PHQ-9: Questionnaire Data Not on file 0 10/01/2024 Housing Stability Answer Date Recorded What is [...] Answer Date Recorded Patient Health Questionnaire-2 Score 1 10/01/2024 Sex and Gender Information Value Date Recorded Sex Assigned at Male 06/21/2022 10:33 AM EDT Legal Sex Male 10:33 AM EDT Gender Identity Male 06/21/2022 10:33 AM EDT Sexual Orientation Straight 06/21/2022 10 :33 AM EDT documented as of this encounter Plan of Treatment Upcoming Encounters Date Type Department Care Team (Late st Contact Info) Description 12/31/2024 3:15 PM EDT Office Visit [facility] CHC MED & PEDS [address] [place] [address] Gisselle Fuentes MD 505 [place] [address] documented as of this encounter Visit Diagnoses Not on filedocumented in this encounter Additional Health Concerns Assessment Noted Time PHQ-9 Depression Total Score: 5 10/01/19 25 4:13 PM EST documented as of this encounter Care Teams Hazmat Cdl A Driver Relationship Specialty Start Date End Date Gisselle Fuentes MD 505 [place] [address] PCP - General Internal Medicine 09/23/17 documented as of this encounter
--- OUTSIDE RECORDS SUMMARY | 2024-11-30 12:39 | XMS_ITS | Encounter Summary ---
Author Organization [employer] Address [address] [facility] 7 [place] [address] Care Team Providers Care Grounds Maintenance Worker Name Role Phone Gisselle Fuentes MD Primary Care Provider [phone]- [phone] Reason for Visit * Reason Comments Med Change Request Encounter Details Date Type Department Care Team ([facility] Contact Info) Description 04/24/2024 Refill [facility] CHC MED & PEDS [address] [place], [place] [phone] Gisselle Fuentes MD 505 [place], [place] [phone] Severe obesity (BMI >= 40) (CMS/HCC) Social [...] Description 12/31/2024 3:15 PM EDT Office Visit [facility] CHC MED & PEDS 505 [place] [address] Gisselle Fuentes MD 505 [place] [address] documented as of this encounter Visit Diagnoses Diagnosis Severe obesity (BMI >= 40) (CMS/HCC) documented in this encounter Additional Health Concerns Assessment Noted Time PHQ-9 Depression Total Score: 0 01/11/20 23 3:21 PM EDT documented as of this encounter Care Teams Grounds Maintenance Worker Relationship Specialty Start Date End Date Gisselle Fuentes MD 505 [place] [address] PCP - General Internal Medicine 09/23/17 documented as of this encounter
--- OUTSIDE RECORDS SUMMARY | 2024-11-30 12:39 | XMS_ITS | Encounter Summary ---
Author Organization [employer] Address [address] 7t [place] [address] Care Team Providers Care Lumber Driver Name Role Phone Gisselle Fuentes MD Primary Care Provider [phone]- [phone] Encounter Details Date Type Department Care Team ([facility] Contact Info) Description 07/23/2024 Orders Only [facility] MED & PEDS [address] [place], [place] [phone] Gisselle Fuentes MD 505 [place] [address] Severe obesity (BMI >= 40) (CMS/HCC) (Primary [...] Description 12/31/2024 3:15 PM EDT Office Visit [facility] MED [facility] PEDS 505 [place] [address] Gisselle Fuentes MD 505 [place] [address] documented as of this encounter Visit Diagnoses Diagnosis Severe obesity (BMI >= 40) (CMS/HCC)- Primary documented in this encounter Additional Health Concerns Assessment Noted Time PHQ-9 Depression Total Score: 0 01/11/20 23 3:21 PM EDT documented as of this encounter Care Teams Lumber Driver Relationship Specialty Start Date End Date Gisselle Fuentes MD [address] [place] [address] PCP - General Internal Medicine 09/23/17 documented as of this encounter
--- OUTSIDE RECORDS SUMMARY | 2024-11-30 12:39 | XMS_ITS | Encounter Summary ---
Author Organization [employer] Address [address] [facility] 7t [place] [address] Care Team Providers Care Wellness Program Administrator Name Role Phone Gisselle Fuentes MD Primary Care Provider +1- [phone] Encounter Details Date Type Department Care Team (Late st Contact Info) Description 01/18/2024 Orders Only [facility] [address] [place] [address] Provider, MD Lianet Social History Tobacco Use [...] Description 12/31/2024 3:15 PM EDT Office Visit [facility] CHC MED & PEDS [address] [place] [address] Gisselle Fuentes MD 505 [place] [address] documented as of this encounter Procedures Procedure [...] documented as of this encounter Care Teams Wellness Program Administrator Relationship Specialty Start Date End Date Gisselle Fuentes MD 505 [place] [address] PCP - General Internal Medicine 09/23/17 documented as of this encounter
--- OUTSIDE RECORDS SUMMARY | 2024-11-30 12:39 | XMS_ITS | Clinical Summary ---
Author Organization [facility] it Address [address] [place] [address] Care Team Providers Care Neonatal Surgeon Name Role Phone Gisselle Fuentes MD Primary Care Provider [phone] -[phone] Social History Tobacco Use Types Packs/Day Years Used Date Smoking Tobacco: Never Assessed Sex and Gender Information Value Date Recorded Sex Assigned at Not on file Legal Sex Male 1:45 AM EST Gender Identity Not on file Sexual Orientation Not on file Plan of Treatment Upcoming Encounters Date Type Department Care Team ([facility] st Contact Info) Description 12/04/2024 2:30 PM EDT Consult Bariatric Surgery - [place] [address] [facility] [address] [place] [phone] Ramiro Evans MD 175 [facility] [address] [place] [address] Health Maintenance Due Date Last Done Comments DTaP,Tdap,and Td Vaccines (1 - Tdap) 2002 Hepatitis B Vaccines (1 of 3 - 19+ 3-dose series) 2002 Cholesterol Screening (Lipid Panel) 07/25/2022 Depression Screening 07/25/2022 HIV Screening 07/25/2022 Hepatitis C Screening 07/25/2022 Social Influencers of Health Screening 07/25/2022 COVID-19 Vaccine ( - 2023-2 5 season) 2024 Influenza Vaccine (Season Ended) 2025 HIB Vaccines Aged Out No longer eligi [...] patient's age to complete this topic Meningococcal B Vaccine Aged Out No l onger eligible based on patient's age to complete [...] age to complete this topic Care Teams Neonatal Surgeon Relationship Specialty Start Date End Date Gisselle Fuentes MD [address] [place] [address] PCP - General 05/26/22
--- OUTSIDE RECORDS SUMMARY | 2024-11-30 12:39 | XMS_ITS | Encounter Summary ---
Author Organization [employer] Address [address] [facility] [address] [facility] [address] 7t [place] [address] Care Team Providers Care Display Fabrication Supervisor Name Role Phone Gisselle Fuentes MD Primary Care Provider +1- [phone] Encounter Details Date Type Department Care Team ([facility] st Contact Info) Description 04/24/2024 Orders Only [facility] MED & PEDS 505 [place], [place] [phone] Gisselle Fuentes MD 505 [place] [address] Severe obesity (BMI >= 40) (CMS/HCC) (Primary [...] Description 12/31/2024 3:15 PM EDT Office Visit [facility] MED & PEDS 505 [place] [address] Gisselle Fuentes MD 505 [place] [address] documented as of this encounter Visit Diagnoses Diagnosis Severe obesity (BMI >= 40) (CMS/HCC)- Primary documented in this encounter Additional Health Concerns Assessment Noted Time PHQ-9 Depression Total Score: 0 01/11/20 23 3:21 PM EDT documented as of this encounter Care Teams Display Fabrication Supervisor Relationship Specialty Start Date End Date Gisselle Fuentes MD 505 [place] [address] PCP - General Internal Medicine 09/23/17 documented as of this encounter
--- OUTSIDE RECORDS SUMMARY | 2024-11-30 12:39 | XMS_ITS | Encounter Summary ---
Author Organization [employer] Address [address] [facility] 7 [place] [address] Care Team Providers Care Accounting Technician Name Role Phone Gisselle Fuentes MD Primary Care Provider +1- [phone] Reason for Referral * Imaging (Routine) - Closed Specialty Diagnoses / Procedures Referred By Reshma younger Referred To Contact Radiology Diagnoses Abnormal LFTs Procedures US Abdomen Complete Gisselle Fuentes MD [address] [place] [address] Phone: tel: fax: [address] Phone: tel: fax: Referral ID Status Reason Start Date Expiration Date Visits Re quested Visits Authorized [id number] Closed 01/10/2024 01/09/2025 1 1 Encounter Details Date Type Department Care Team (Late st Contact Info) Description 01/10/2024 Orders Only [facility] CHC MED & PEDS [address] [place], [place] [phone] Gisselle Fuentes MD [address] [place] [address] Abnormal LFTs (Primary Dx) Social History Tobacco [...] Upcoming Encounters Date Type Department Care Team ([facility] st Contact Info) Description 12/31/2024 3:15 PM EDT Office Visit [facility] MED & PEDS [address] [place] [address] Gisselle Fuentes MD [address] [place] [address] Scheduled Orders Name Type Priority Associated Diagnoses Orde r Schedule US Abdomen Complete Imaging Routine Abnormal LFTs Expected: 01/10/2024, Expires: 01/09/2025 documented as of this encounter Visit Diagnoses Diagnosis Abnormal LFTs- Primary documented in this encounter Additional Health Concerns Assessment Noted Time PHQ-9 Depression Total Score: 0 01/11/20 23 3:21 PM EDT documented as of this encounter Care Teams Accounting Technician Relationship Specialty Start Date End Date Gisselle Fuentes MD [address] [place] [address] PCP - General Internal Medicine 09/23/17 documented as of this encounter
--- OUTSIDE RECORDS SUMMARY | 2024-11-30 12:39 | XMS_ITS | Encounter Summary ---
Author Organization [employer] Address [address] [facility] [address] 7t [place] [address] Care Team Providers Care Cosmetic Manager Name Role Phone Gisselle Fuentes MD Primary Care Provider +1- [phone] Reason for Visit * Reason Onset Date Comments Medication Question 04/20/2024 Encounter Details Date Type Department Care Team ([facility] st Contact Info) Description 04/20/2024 Telephone [facility] MEDICINE [address] [place] [address] Gisselle Fuentes MD [address], [place] [phone] Medication Question Social History Tobacco Use Types [...] increase of Wegovy to be sent to [facility] pharmacy . documented in this encounter Plan of Treatment Upcoming Encounters Date Type Department Care Team ([facility] st Contact Info) Description 12/31/2024 3:15 PM EDT Office Visit [facility] MED & PEDS [address] [place] [address] Gisselle Fuentes MD [address] [place] [address] documented as of this encounter Visit Diagnoses Not on filedocumented in this encounter Additional Health Concerns Assessment Noted Time PHQ-9 Depression Total Score: 0 01/11/20 23 3:21 PM EDT documented as of this encounter Care Teams Cosmetic Manager Relationship Specialty Start Date End Date Gisselle Fuentes MD [address] [place] [address] PCP - General Internal Medicine 09/23/17 documented as of this encounter
--- OUTSIDE RECORDS SUMMARY | 2024-11-30 12:39 | XMS_ITS | Encounter Summary ---
Author Organization [employer] Address [address] 7t [place] [address] Care Team Providers Care Falafel Cart Cook Name Role Phone Gisselle Fuentes MD Primary Care Provider Reason for Visit * Reason Onset Date Comments Medication Question 07/23/2024 Encounter Details Date Type Department Care Team ([facility] st Contact Info) Description 07/23/2024 Telephone [facility] MEDICINE [address] [place] [address] Gisselle Fuentes MD [address] [place], [place] [phone] Medication Question Social History Tobacco Use Types [...] Description 12/31/2024 3:15 PM EDT Office Visit [facility] CHC MED & PEDS [address] [place] [address] Gisselle Fuentes MD [address] [place] [address] documented as of this encounter Visit Diagnoses Not on filedocumented in this encounter Additional Health Concerns Assessment Noted Time PHQ-9 Depression Total Score: 0 01/11/20 23 3:21 PM EDT documented as of this encounter Care Teams Falafel Cart Cook Relationship Specialty Start Date End Date Gisselle Fuentes MD 505 [place] [address] PCP - General Internal Medicine 09/23/17 documented as of this encounter
--- OUTSIDE RECORDS SUMMARY | 2024-11-30 12:39 | XMS_ITS | Clinical Summary ---
Author Organization [employer] Address [address] [facility] 7t [place] [address] Care Team Providers Care Grain Blender Name Role Phone Gisselle Fuentes MD Primary Care Provider Allergies No known active allergies Medications ondansetron ODT (Zofran-ODT) 4 MG disintegrating tablet DISSOLVE 1 TABLET UNDER THE TONGUE 3 TIMES DAILY 3 Active tadalafil (Cialis) 10 MG tablet TAKE ONE TABLET BY MOUTH EVERY DAY NEEDED FOR INTENDED ACTIVITY 3 Active famotidine (Pepcid) 20 MG tabletIndications: Gastroesophageal reflux disease without esophagitis Take 1 tablet (20 mg) by mouth 2 times daily. 60 tablet 11 3 Active levothyroxine (Synthroid, Levoxyl) 25 MCG tabletIndications: Elevated TSH TOME ROGELIO TABLETA (25 MCG) POR VIA ORAL ANTES DEL DESAYUNO 90 tablet 3 4 Active Semaglutide-Weight Management (Wegovy) 1.7 MG/0.75ML solution auto-injectorIndic ations:Severe obesity (BMI >= 40) (CMS/HCC) Inject 0.31 mL (0.7 mg) under the skin 1 (one) time per week. 2 mL 1 4 Active Semaglutide-Weight Management (Wegovy) 2.4 MG/0.75ML solution auto-injectorIndic ations:Severe obesity (BMI >= 40) (CMS/HCC) INJECT 0.75 ML (2.4 MG) UNDER THE SKIN 1 (ONE) TIME PER WEEK. 2 mL 1 4 Active Zepbound 7.5 MG/0.5ML solution auto-injectorIndic ations:Severe obesity (BMI >= 40) ([facility]) INJECT 0.5 ML (7.5 MG) UNDER THE SKIN EVERY 7 (SEVEN) DAYS AND 0.5 ML (7.5 MG) EVERY 7 (SEVEN) DAYS. 2 mL 1 5 11/02/19 25 Active Problems Problem Noted Date Diagnosed Date Severe obesity (BMI >= 40) 10/01/2024 Abnormal LFTs 01/13/2018 Encounters Date Type Department Care Team Description 11/16/2024 Telephone [facility] & [facility]EDS [address] [place] [address] Gisselle Fuentes MD Prior Authorization 11/15/2024 Telephone [facility] [address] [place] [address] Gisselle Fuentes MD Med Refill 11/12/2024 Telephone [facility] [address] [place] [address] Gisselle Fuentes MD Med Refill 10/03/2024 Orders Only [facility] [address] [place] [address] Gisselle Fuentes MD 10/02/2024 Refill [facility] [address] [place] [address] Gisselle Fuentes MD Severe obesity (BMI >= 40) ([facility]) 10/01/2024 3:30 PM EST Office Visit [facility] [address] [place] [address] Gisselle Fuentes MD Severe obesity (BMI >= 40) ([facility]) (Primary Dx); Dietary counseling; Exercise counseling; Class 3 severe obesity due to excess calories with serious comorbidity and body mass index (BMI) of 40.0 to 44.9 in adult ([facility]) 10/01/2024 Refill [facility] [address] [place] [address] Gisselle Fuentes MD Severe obesity (BMI >= 40) ([facility]) 10/01/2024 Travel 09/27/2024 Telephone [facility]EDS [address] [place] [address] Gisselle Fuentes MD chart prep from Last 3 Months Social History Tobacco [...] Sign Reading Time Taken Comments Blood Pressure 132/77 10/01/2024 3:39 PM EST Pulse 65 10/01/2024 3:39 PM EST Temperature 36.8 ??C (98.3 ??F) 10/01/2024 3:39 PM ES T Respiratory Rate 20 10/01/2024 3:39 PM EST Oxygen Saturation 99% 10/01/2024 3:39 PM EST Inhaled Oxygen Concentration - - Weight 135 kg (298 lb) 10/01/2024 3:39 PM EST Height 180.3 cm (5' 11 ) 10/01/2024 3:39 PM EST Body Mass Index 41.56 10/01/2024 3:39 PM EST Plan of Treatment Upcoming Encounters Date Type Department Care Team (Late st Contact Info) Description 12/31/2024 3:15 PM EDT Office Visit [facility]ED[facility] [address] [place], [place] [phone] Gisselle Fuentes MD [address] [place] [address] Health Maintenance Due Date Last Done Comments Family Planning (PISQ) 1998 Hepatitis B Vaccines (1 of 3 - 19+ 3-dose series) 2002 COVID-19 Vaccine (2023-2 5 season) 2024 01/03/2021, 12/13/2020 Influenza Vaccine (#1) 2024 9, 09/23/2017 SDOH Screening 12/29/2024 12/30/2023 Alcohol/Substance Use Screening 10/01/2025 10/01/2024 Depression Screening 10/01/2025 10/01/2024, 10/01/2024 Tobacco Screening 10/01/2025 10/01/2024 DTaP/Tdap/Td Vaccines (2 - T d or [...] 5 Years) and At-Risk Patients (6 to 49) Years) Aged Out No longer eligible b ased on patient's age to complete this topic RSV under 20 months Aged Out No longe r eligible based on patient's age to complete this topic Rotavirus Vaccines Aged Out No longer eligible based on patient's age to complete this topic Procedures Procedure Name Priority Date/Time Associated Diagnosis Comments LIPID PANEL, STANDARD Routine 01/09/2024 8:46 AM EDT Annual physical exam Severe obesity (BMI >= 40) (CMS/HCC) Abnormal LFTs ZZZ HISTORICAL HEPATITIS C AB W/REFL TO HCV RNA, QN, PCR Routine 09/21/2021 11:50 AM EST HIV 1/2 ANTIGEN/ANTIBODY, FOURTH GENERATION W/RFL Routine 09/21/2021 11:50 AM EST from Last 3 Months or Most Recently Relevant to Health Maintenance Results * (ABNORMAL) Lipid Panel, Standard (01/09/2024 8:46 AM EDT) Triglycerides 83 <150 mg/dL [facility] Comment:Desirable Triglyceri de: less than 150 mg/dLBorderline High Triglyceride 150-199 mg/dLHigh Triglyceride: 200-499 mg/dLVery High Triglyceride: greater than or equal to 5OO mg/dL Cholesterol 141 <200 mg/dL [facility] Comment:Desirable Cholestero l: less than 200 mg/dLBorderline High Cholesterol: 200-239 mg/dLHigh Cholesterol: greater than 239 mg/dL LDL Cholesterol Calculated 90 <100 mg/dL [facility] Comment:Desirable LDL: less than 100 mg/dLNear Optimal/Above Optimal LDL: 110- 129 mg/dLBorderline High LDL: 130-159 mg/dLHigh LDL: 160-189 mg/dLVery High LDL: greater than or equal to 190 mg/dL HDL Cholesterol 35(L) >40 mg/dL [facility] Comment:Desirable HDL: great er than 40 mg/dL Note: This HDL assay may give artificially low results in patients with liver disease. Blood Venous blood specimen / Unknown 01/09/2024 8:46 AM EDT 01/09/2024 2:27 PM EDT us Gisselle Fuentes MD LAB BLOOD ORDERABLES Final Result Performing Organization Address [facility] Co de Phone Number [facility] [address] [place] [address] [phone] * HEPATITIS C AB W/REFL TO HCV RNA, QN, PCR (09/21/2021 11:50 AM EST) HEPATITIS C ANTIBODY NON-REACT ESMER NON-REACT ESMER [facility] INDEX 0.12 <1.00 [facility] Comment: ?? HCV antibody was non-reactive. There is no laboratory ?? evidence of HCV infection. ?? In most cases, no further action is required. However, if recent HCV exposure is suspected, a test for HCV RNA (test code 95665) is suggested. ?? For additional information please refer to http://education.[employer]/faq/LAF10n4 (This link is being provided for informational/ educational purposes only.) ?? 09/21/2021 11:5 0 AM EST us Gisselle Fuentes MD HISTORICAL/NON ORDERABLE LA BS Final Result Performing Organization Address [facility] Co de Phone Number [facility] [address] * HIV 1/2 ANTIGEN/ANTIBODY,FOURTH GENERATION W/RFL [...] ? For additional information please refer to http://[employer]/faq/WSI502 (This link is being provided for informational/ educational purposes only.) ? The performance of this assay has not been clinically validated in patients less than 2 years old. ?? 09/21/2021 11:5 0 AM EST us Gisselle Fuentes MD LAB BLOOD ORDERABLES Final Result Performing Organization Address City/State/[facility] Phone Number [facility] Replaced by [facility] [address] from Last 3 Months or Most Recently Relevant to Health Maintenance Insurance [facility] Care Teams Grain Blender Relationship Specialty Start Date End Date Gisselle Fuentes MD [address] [place] [id number] PCP - General Internal Medicine 09/23/17
--- OUTSIDE RECORDS SUMMARY | 2024-11-30 12:39 | XMS_ITS | Encounter Summary ---
Author Organization [employer] Address [address] [facility] 7 [place] [address] Care Team Providers Care Materials Supervisor Name Role Phone Gisselle Fuentes MD Primary Care Provider [phone]- [phone] Reason for Visit * Reason Comments Med Change Request Encounter Details Date Type Department Care Team ([facility] Contact Info) Description 10/02/2024 Refill [facility] MED & PEDS [address] [place], [place] [phone] Gisselle Fuentes MD [address] [place], [place] [phone] Severe obesity (BMI >= 40) (CMS/HCC) Social [...] encounter Miscellaneous Notes * Telephone Encounter - No Bauman - 11/09/2024 3:16 PM EDT Tc from pt requesting a callback in regards , pt went to pharmacy and med not available. Please return call [phone] documented in this encounter Plan of Treatment Upcoming Encounters Date Type Department Care Team (Late st Contact Info) Description 12/31/2024 3:15 PM EDT Office Visit [facility] & PEDS [address] [place] [address] Gisselle Fuentes MD [address] [place] [address] documented as of this encounter Visit Diagnoses Diagnosis Severe obesity (BMI >= 40) (CMS/HCC) documented in this encounter Additional Health Concerns Assessment Noted Time PHQ-9 Depression Total Score: 5 10/01/19 25 4:13 PM EST documented as of this encounter Care Teams Materials Supervisor Relationship Specialty Start Date End Date Gisselle Fuentes MD [address] [place] [address] PCP - General Internal Medicine 09/23/17 documented as of this encounter
--- OUTSIDE RECORDS SUMMARY | 2024-11-30 12:40 | XMS_ITS | Encounter Summary ---
Author Organization [employer] Address [address] [facility] 7t [place] [address] Care Team Providers Care Lighting Fixtures Decorator Name Role Phone Gisselle Fuentes MD Primary Care Provider Reason for Visit * Reason Onset Date Comments Prior Authorization 06/26/2024 Medication Question 06/26/2024 Encounter Details Date Type Department Care Team ([facility] st Contact Info) Description 06/26/2024 Telephone [facility] [address] [place] [address] Gisselle Fuentes MD [address] [place], [place] [phone] Prior Authorization; Medication Question Social History Tobacco [...] Description 12/31/2024 3:15 PM EDT Office Visit [facility] MED & PEDS [address] [place] [address] Gisselle Fuentes MD [address] [place] [address] documented as of this encounter Visit Diagnoses Not on filedocumented in this encounter Additional Health Concerns Assessment Noted Time PHQ-9 Depression Total Score: 0 01/11/20 23 3:21 PM EDT documented as of this encounter Care Teams Lighting Fixtures Decorator Relationship Specialty Start Date End Date Gisselle Fuentes MD [address] [place] [address] PCP - General Internal Medicine 09/23/17 documented as of this encounter
--- OUTSIDE RECORDS SUMMARY | 2024-11-30 12:40 | XMS_ITS | Encounter Summary ---
Author Organization [employer] Address [address] [facility] [address] 7t [place] [address] Care Team Providers Care Library Media Specialist Name Role Phone Gisselle Fuentes MD Primary Care Provider [phone]- [phone] Encounter Details Date Type Department Care Team ([facility] Contact Info) Description 06/29/2024 Orders Only [facility] & PEDS [address] [place], [place] [phone] Gisselle Fuentes MD [address] [place] [address] Severe obesity (BMI >= 40) (CMS/HCC) (Primary [...] 3:15 PM EDT Office Visit [facility] [address] [place] [address] Gisselle Fuentes MD [address] [place] [address] documented as of this encounter Visit Diagnoses Diagnosis Severe obesity (BMI >= 40) (CMS/HCC)- Primary documented in this encounter Additional Health Concerns Assessment Noted Time PHQ-9 Depression Total Score: 0 01/11/20 23 3:21 PM EDT documented as of this encounter Care Teams Library Media Specialist Relationship Specialty Start Date End Date Gisselle Fuentes MD [address] [place] [address] PCP - General Internal Medicine 09/23/17 documented as of this encounter
--- OUTSIDE RECORDS SUMMARY | 2024-11-30 12:40 | XMS_ITS | Encounter Summary ---
Author Organization [employer] Address [address] [facility] [address] 7t [place] [address] Care Team Providers Care Manager Statistical Name Role Phone Gisselle Fuentes MD Primary Care Provider +1- [phone] Encounter Details Date Type Department Care Team ([facility] st Contact Info) Description 05/15/2024 Orders Only [facility] [address] [place], [place] [phone] Gisselle Fuentes MD [address] [place] [address] Severe obesity (BMI >= 40) (CMS/HCC) (Primary Dx) Social History Tobacco Use Types Packs/Day Years Used Date Smoking Tobacco: Never Smokeless Tobacco: Never Depression Answer Date Recorded Patient Health Questionnaire-9 Score 0 01/10/2023 Housing Stability Answer Date Recorded What is your housing situation today? I have armírez alvarez 06/27/[address] you [...] 3:15 PM EDT Office Visit [facility] PED[facility] [address] [place] [address] Gisselle Fuentes MD [address] [place] [address] documented as of this encounter Visit Diagnoses Diagnosis Severe obesity (BMI >= 40) (CMS/HCC)- Primary documented in this encounter Additional Health Concerns Assessment Noted Time PHQ-9 Depression Total Score: 0 01/11/20 23 3:21 PM EDT documented as of this encounter Care Teams Manager Statistical Relationship Specialty Start Date End Date Gisselle Fuentes MD [address] [place] [address] PCP - General Internal Medicine 09/23/17 documented as of this encounter
[2024-11-30 13:24] LABS: Hemoglobin 14.6 g/dl (14.0-18.0); Mean Corpuscular HGB Conc 33.2 g/dl (31.0-36.0); Mean Corpuscular Hemoglobin 29.7 pg (27.0-33.0); Mean Corpuscular Volume 89.6 fL (80.0-98.0); Mean Platelet Volume 12.1 fL (9.4-12.4); Platelet Count 231 X10*3/uL (160-400); Red Blood Count 4.91 X10*6/uL (4.60-5.80); Red Cell Distribution Width 11.9 % (11.0-16.0); White Blood Count 8.8 X10*3/uL (4.8-10.8)
== END 2024-11-30 11:41 | disposition home or self-care (01) ==
LOC: HO.LAB 11:40
PROVIDERS: PCP Internal Medicine; Visit Provider Nurse Practitioner Family
DX: F52.4 Premature ejaculation (principal); E29.1 Testicular hypofunction; N52.9 Male erectile dysfunction, unspecified
CPT/HCPCS: 36415; 85027

== ENCOUNTER 2024-12-10 11:42 | Outpatient (REF) | payer OTHER, SELFPAY ==
--- OUTSIDE RECORDS SUMMARY | 2024-12-10 11:45 | XMS_ITS | Encounter Summary ---
Author Organization [employer] Address [address] 7[address] [place] [address] Care Team Providers Care Tea Bag Machine Tender Name Role Phone Gisselle Fuentes MD Primary Care Provider +1- [phone] Encounter Details Date Type Department Care Team ([facility] st Contact Info) Description 04/24/2024 Orders Only [facility] MED & PEDS [address] [place], [place] [phone] Gisselle Fuentes MD [address] [place] [address] Severe obesity (BMI >= 40) (CMS/HCC) (Primary [...] Description 12/31/2024 3:15 PM EDT Office Visit [facility] MED & PEDS [address] [place] [address] Gisselle Fuentes MD [address] [place] [address] documented as of this encounter Visit Diagnoses Diagnosis Severe obesity (BMI >= 40) (CMS/HCC)- Primary documented in this encounter Additional Health Concerns Assessment Noted Time PHQ-9 Depression Total Score: 0 01/11/20 23 3:21 PM EDT documented as of this encounter Care Teams Tea Bag Machine Tender Relationship Specialty Start Date End Date Gisselle Fuentes MD [address] [place] [address] PCP - General Internal Medicine 09/23/17 documented as of this encounter
--- OUTSIDE RECORDS SUMMARY | 2024-12-10 11:45 | XMS_ITS | Encounter Summary ---
Author Organization [employer] Address [address] [facility] 7 [place] [address] Care Team Providers Care Front Line Supervisor Name Role Phone Gisselle Fuentes MD Primary Care Provider +1- [phone] Reason for Referral * Imaging (Routine) - Closed Specialty Diagnoses / Procedures Referred By Reshma younger Referred To Contact Radiology Diagnoses Abnormal LFTs Procedures US Abdomen Complete Gisselle Fuentes MD [address] [place] [address] Phone: tel: fax: [address] Phone: tel: fax: Referral ID Status Reason Start Date Expiration Date Visits Re quested Visits Authorized [id number] Closed 01/10/2024 01/09/2025 1 1 Encounter Details Date Type Department Care Team (Late st Contact Info) Description 01/10/[address] [facility] MED & PEDS [address] [place], [place] [phone] Gisselle Fuentes MD [address] [place] [address] Abnormal LFTs (Primary Dx) Social History Tobacco [...] [facility] st Contact Info) Description 12/31/2024 3:15 PM EDT Office Visit [facility] MED & PEDS [address] [place] [address] Gisselle Fuentes MD [address] [place] [address] Scheduled Orders Name Type Priority Associated Diagnoses Orde r Schedule US Abdomen Complete Imaging Routine Abnormal LFTs Expected: 01/10/2024, Expires: 01/09/2025 documented as of this encounter Visit Diagnoses Diagnosis Abnormal LFTs- Primary documented in this encounter Additional Health Concerns Assessment Noted Time PHQ-9 Depression Total Score: 0 01/11/20 23 3:21 PM EDT documented as of this encounter Care Teams Front Line Supervisor Relationship Specialty Start Date End Date Gisselle Fuentes MD [address] [place] [address] PCP - General Internal Medicine 09/23/17 documented as of this encounter
--- OUTSIDE RECORDS SUMMARY | 2024-12-10 11:45 | XMS_ITS | Encounter Summary ---
Author Organization [employer] Address [address] [facility] 7t [place] [address] Care Team Providers Care Office Rental Clerk Name Role Phone Gisselle Fuentes MD Primary Care Provider +1- [phone] Encounter Details Date Type Department Care Team (Late st Contact Info) Description 01/18/2024 Orders Only [facility] [address] [place] [address] Provider, MD Lianet Social History Tobacco Use [...] Description 12/31/2024 3:15 PM EDT Office Visit [facility] MED & PEDS [address] [place] [address] Gisselle Fuentes MD [address] [place] [address] documented as of this encounter Procedures Procedure [...] documented as of this encounter Care Teams Office Rental Clerk Relationship Specialty Start Date End Date Gisselle Fuentes MD [address] [place] [address] PCP - General Internal Medicine 09/23/17 documented as of this encounter
--- OUTSIDE RECORDS SUMMARY | 2024-12-10 11:45 | XMS_ITS | Encounter Summary ---
Author Organization [facility] [employer] Address [address] [facility] 7 [place] [address] Care Team Providers Care Breaker Up Name Role Phone Gisselle Fuentes MD Primary Care Provider +1- [phone] Reason for Visit * Reason Comments Med Change Request Encounter Details Date Type Department Care Team ([facility] Contact Info) Description 10/02/2024 Refill [facility] MED & PEDS [address] [place], [place] [phone] Gisselle Fuentes MD [address] [place], [place] [phone] Severe obesity (BMI >= 40) (CMS/HCC) Social [...] and med not available. Please return call [phone] documented in this encounter Plan of Treatment Upcoming Encounters Date Type Department Care Team (Late st Contact Info) Description 12/31/2024 3:15 PM EDT Office Visit [facility] MED & PEDS [address] [place] [address] Gisselle Fuentes MD [address] [place] [address] documented as of this encounter Visit Diagnoses Diagnosis Severe obesity (BMI >= 40) (CMS/HCC) documented in this encounter Additional Health Concerns Assessment Noted Time PHQ-9 Depression Total Score: 5 10/01/19 25 4:13 PM EST documented as of this encounter Care Teams Breaker Up Relationship Specialty Start Date End Date Gisselle Fuentes MD [address] [place] [address] PCP - General Internal Medicine 09/23/17 documented as of this encounter
--- OUTSIDE RECORDS SUMMARY | 2024-12-10 11:45 | XMS_ITS | Encounter Summary ---
Author Organization [employer] Address [address] 7[address] [place] [address] Care Team Providers Care Copying Machine Repairer Name Role Phone Gisselle Fuentes MD Primary Care Provider [phone]- [phone] Reason for Visit * Reason Onset Date Comments Medication Question 07/23/2024 Encounter Details Date Type Department Care Team ([facility] st Contact Info) Description 07/23/2024 Telephone [facility] [address] [place] [address] Gisselle Fuentes MD [address] [place], [place] [phone] Medication Question Social History Tobacco Use Types [...] Description 12/31/2024 3:15 PM EDT Office Visit [facility] MED & PEDS [address] [place] [address] Gisselle Fuentes MD [address] [place] [address] documented as of this encounter Visit Diagnoses Not on filedocumented in this encounter Additional Health Concerns Assessment Noted Time PHQ-9 Depression Total Score: 0 01/11/20 23 3:21 PM EDT documented as of this encounter Care Teams Copying Machine Repairer Relationship Specialty Start Date End Date Gisselle Fuentes MD [address] [place] [address] PCP - General Internal Medicine 09/23/17 documented as of this encounter
--- OUTSIDE RECORDS SUMMARY | 2024-12-10 11:45 | XMS_ITS | Encounter Summary ---
Author Organization [employer] Address [address] 7[address] [place] [address] Care Team Providers Care Low Heel Builder Name Role Phone Gisselle Fuentes MD Primary Care Provider +1- [phone] Encounter Details Date Type Department Care Team ([facility] st Contact Info) Description 05/15/2024 Orders Only [facility] MED & PEDS [address] [place], [place] [phone] Gisselle Fuentes MD [address] [place] [address] Severe obesity (BMI >= 40) (CMS/HCC) ([facility] [address] [place] [address] Gisselle Fuentes MD [address] [place] [address] documented as of this encounter Visit Diagnoses Diagnosis Severe obesity (BMI >= 40) (CMS/HCC)- Primary documented in this encounter Additional Health Concerns Assessment Noted Time PHQ-9 Depression Total Score: 0 01/11/20 23 3:21 PM EDT documented as of this encounter Care Teams Low Heel Builder Relationship Specialty Start Date End Date Gisselle Fuentes MD [address] [place] [address] PCP - General Internal Medicine 09/23/17 documented as of this encounter
--- OUTSIDE RECORDS SUMMARY | 2024-12-10 11:45 | XMS_ITS | Encounter Summary ---
Author Organization [employer] Address [address] [facility] [address] [facility] [address] [place] [address] Care Team Providers Care Cell Liner Name Role Phone Gisselle Fuentes MD Primary Care Provider +1- [phone] Reason for Visit * Reason Onset Date Comments Medication Question 04/20/2024 Encounter Details Date Type Department Care Team ([facility] st Contact Info) Description 04/20/2024 Telephone [facility] [address] [place] [address] Gisselle Fuentes MD [address] [place], [place] [phone] Medication Question Social History Tobacco Use Types [...] increase of Wegovy to be sent to [facility] pharmacy . documented in this encounter Plan of Treatment Upcoming Encounters Date Type Department Care Team ([facility] st Contact Info) Description 12/31/2024 3:15 PM EDT Office Visit [facility] MED & PEDS [address] [place] [address] Gisselle Fuentes MD [address] [place] [address] documented as of this encounter Visit Diagnoses Not on filedocumented in this encounter Additional Health Concerns Assessment Noted Time PHQ-9 Depression Total Score: 0 01/11/20 23 3:21 PM EDT documented as of this encounter Care Teams Cell Liner Relationship Specialty Start Date End Date Gisselle Fuentes MD [address] [place] [address] PCP - General Internal Medicine 09/23/17 documented as of this encounter
--- OUTSIDE RECORDS SUMMARY | 2024-12-10 11:45 | XMS_ITS | Clinical Summary ---
Author Organization [address] [facility] Address [address] [place] [address] Phone Care Team Providers Care Label Rewinder Name Role Phone Gisselle Fuentes MD Primary Care Provider [phone] Social History Tobacco Use Types Packs/Day Years Used Date Smoking Tobacco: Never Assessed Sex and Gender Information Value Date Recorded Sex Assigned at Not on file Legal Sex Male 1:45 AM EST Gender Identity Not on file Sexual Orientation Not on file Plan of Treatment Health Maintenance Due Date Last Done Comments DTaP,Tdap,and Td Vaccines (1 - Tdap) 2002 Hepatitis B Vaccines (1 of 3 - 19+ 3-dose series) 2002 Cholesterol Screening (Lipid Panel) 07/25/2022 Depression Screening 07/25/2022 HIV Screening 07/25/2022 Hepatitis C Screening 07/25/2022 Social Influencers of Health Screening 07/25/2022 COVID-19 Vaccine (2023-2 5 season) 2024 Influenza Vaccine (Season Ended) [...] on patient's age to complete this topic Insurance MEDICAID - [place] Care Teams Label Rewinder Relationship Specialty Start Date End Date Gisselle Fuentes MD [address] [place], [place] PCP - General 05/26/22
--- OUTSIDE RECORDS SUMMARY | 2024-12-10 11:45 | XMS_ITS | Encounter Summary ---
Author Organization [employer] Address [address] [facility] [address] [place] [address] Care Team Providers Care Medical Care Administrator Name Role Phone Gisselle Fuentes MD Primary Care Provider [phone]- [phone] Encounter Details Date Type Department Care Team ([facility] Contact Info) Description 06/29/2024 Orders Only [facility] CHC MED & PEDS [address] [place], [place] [phone] Gisselle Fuentes MD [address] [place] [address] Severe obesity (BMI >= 40) (CMS/HCC) (Primary [...] 3:15 PM EDT Office Visit [facility] MED & PEDS [address] [place] [address] Gisselle Fuentes MD [address] [place] [address] documented as of this encounter Visit Diagnoses Diagnosis Severe obesity (BMI >= 40) (CMS/HCC)- Primary documented in this encounter Additional Health Concerns Assessment Noted Time PHQ-9 Depression Total Score: 0 01/11/20 23 3:21 PM EDT documented as of this encounter Care Teams Medical Care Administrator Relationship Specialty Start Date End Date Gisselle Fuentes MD [address] [place] [address] PCP - General Internal Medicine 09/23/17 documented as of this encounter
--- OUTSIDE RECORDS SUMMARY | 2024-12-10 11:45 | XMS_ITS | Encounter Summary ---
Author Organization [employer] Address [address] [facility] [address] [place] [address] Care Team Providers Care Industrial Aerial Installer Name Role Phone Gisselle Fuentes MD Primary Care Provider Encounter Details Date Type Department Care Team ([facility] st Contact Info) Description 10/03/2024 Orders Only [facility] MED & PEDS [address] [place], [place] [phone] Gisselle Fuentes MD [address] [place] [address] Social History Tobacco Use Types Packs/Day Years [...] Description 12/31/2024 3:15 PM EDT Office Visit [facility] CHC MED & PEDS [address] [place] [address] Gisselle Fuentes MD [address] [place] [address] documented as of this encounter Visit Diagnoses Not on filedocumented in this encounter Additional Health Concerns Assessment Noted Time PHQ-9 Depression Total Score: 5 10/01/19 25 4:13 PM EST documented as of this encounter Care Teams Industrial Aerial Installer Relationship Specialty Start Date End Date Gisselle Fuentes MD [address] [place] [address] PCP - General Internal Medicine 09/23/17 documented as of this encounter
--- OUTSIDE RECORDS SUMMARY | 2024-12-10 11:45 | XMS_ITS | Encounter Summary ---
Author Organization [employer] Address [address] [facility] [place] [address] Care Team Providers Care Project Reservoir Engineer Name Role Phone Gisselle Fuentes MD Primary Care Provider [phone]- [phone] Encounter Details Date Type Department Care Team ([facility] Contact Info) Description 07/23/2024 Orders Only [facility] MED & PEDS [address] [place], [place] [phone] Gisselle Fuentes MD [address] [place] [address] Severe obesity (BMI >= 40) (CMS/HCC) (Primary [...] 12/31/2024 3:15 PM EDT Office Visit [facility] MED & PEDS [address] [place] [address] Gisselle Fuentes MD [address] [place] [address] documented as of this encounter Visit Diagnoses Diagnosis Severe obesity (BMI >= 40) (CMS/HCC)- Primary documented in this encounter Additional Health Concerns Assessment Noted Time PHQ-9 Depression Total Score: 0 01/11/20 23 3:21 PM EDT documented as of this encounter Care Teams Project Reservoir Engineer Relationship Specialty Start Date End Date Gisselle Fuentes MD [address] [place] [address] PCP - General Internal Medicine 09/23/17 documented as of this encounter
--- OUTSIDE RECORDS SUMMARY | 2024-12-10 11:45 | XMS_ITS | Encounter Summary ---
Author Organization [employer] Address [address] [facility] [address] [place] [address] Care Team Providers Care Director Speech Name Role Phone Gisselle Fuentes MD Primary Care Provider Reason for Visit * Reason Onset Date Comments Prior Authorization 06/26/2024 Medication Question 06/26/2024 Encounter Details Date Type Department Care Team ([facility] st Contact Info) Description 06/26/2024 Telephone [facility] MEDICINE [address] [place] [address] Gisselle Fuentes MD [address] [place], [place] [phone] Prior Authorization; Medication Question Social History Tobacco [...] 12/31/2024 3:15 PM EDT Office Visit [facility] MED & PEDS [address] [place] [address] Gisselle Fuentes MD [address] [place] [address] documented as of this encounter Visit Diagnoses Not on filedocumented in this encounter Additional Health Concerns Assessment Noted Time PHQ-9 Depression Total Score: 0 01/11/20 23 3:21 PM EDT documented as of this encounter Care Teams Director Speech Relationship Specialty Start Date End Date Gisselle Fuentes MD [address] [place] [address] PCP - General Internal Medicine 09/23/17 documented as of this encounter
--- OUTSIDE RECORDS SUMMARY | 2024-12-10 11:45 | XMS_ITS | Clinical Summary ---
Author Organization [employer] Address [address] [facility] [address] [place] [address] Care Team Providers Care Linseed Cake Trimmer Name Role Phone Gisselle Fuentes MD Primary [...] Encounters Date Type Department Care Team Description 11/30/2024 Orders Only GENERIC EXTERNAL DATA DEPARTMENT Provider, Generic External Data 11/16/2024 Telephone [facility] MED & PEDS [address] [place] [address] Gisselle Fuentes MD Prior Authorization 11/15/2024 Telephone [facility] MED & PEDS [address] [place] [address] Gisselle Fuentes MD Med Refill 11/12/[address] [address] Gisselle Fuentes MD Med Refill 10/03/2024 Orders Only [facility] MED & PEDS [address] [place] [address] Gisselle Fuentes MD 10/02/2024 Refill [facility] MED & PEDS [address] [place] [address] Gisselle Fuentes MD Severe obesity (BMI >= 40) ([facility]) 10/01/2024 3:30 PM EST Office Visit [facility] MED & PEDS [address] [place] [address] Gisselle Fuentes MD Severe obesity (BMI >= 40) ([facility]) (Primary Dx); Dietary counseling; Exercise counseling; Class 3 severe obesity due to excess calories with serious comorbidity and body mass index (BMI) of 40.0 to 44.9 in adult ([facility]) 10/01/2024 Refill [facility] MED & PEDS [address] [place] [address] Gisselle Feuntes MD Severe obesity (BMI >= 40) ([facility]) 10/01/2024 Travel 09/27/2024 Telephone [facility] MED & PEDS [address] [place] [address] Gisselle Fuentes MD chart prep from Last [...] Upcoming Encounters Date Type Department Care Team ([facility] st Contact Info) Description 12/31/2024 3:15 PM EDT Office Visit [facility] CHC MED & PEDS [address] [place] [address] Gisselle Fuentes MD [address] [place] [address] Health Maintenance Due Date Last Done Comments Family Planning (PISQ) 1998 Hepatitis B Vaccines (1 of 3 - 19+ 3-dose series) 2002 COVID-19 Vaccine ( - 2023-2 5 season) 2024 01/03/2021, 12/13/2020 [...] Procedure Name Priority Date/Time Associated Diagnosis Comments CANCELLED CHEMISTRY Routine 11/30/2024 1 1:58 AM EDT CBC Routine 11/30/2024 11:58 AM EDT LIPID PANEL, STANDARD Routine 01/09/2024 8:46 AM EDT Annual physical exam Severe obesity (BMI >= 40) (CMS/HCC) Abnormal LFTs ZZZ HISTORICAL HEPATITIS C AB W/REFL TO HCV RNA, QN, PCR Routine 09/21/2021 11:50 AM EST HIV 1/2 ANTIGEN/ANTIBODY, FOURTH GENERATION W/RFL Routine 09/21/2021 11:50 AM EST from Last 3 Months or Most Recently Relevant to Health Maintenance Results * Cancelled Chemistry (11/30/2024 11:58 AM EDT) Cancelled Chemistry SEE NOTE [facility] Comment:THE FOLLOWING TESTS WERE CANCELLED: TESTOSTERONE FR + TOTREASON: NO SPECIMEN COLLECTED/RECEIVED 11/30/2024 11:5 8 AM EDT 11/30/2024 11:59 AM EDT us Generic External Data Provider HISTORICAL/NON OR DERABLE LABS Final Result [facility] [address] [place] [phone] [phone] * CBC (11/30/2024 11:58 AM EDT) White Blood Count 8.8 4.8 - 10.8 X10*3/uL [facility] Red Blood Count 4.91 4.60 - 5.80 X10*6/uL [facility] Hemoglobin 14.6 14.0 - 18.0 g/dl [facility] Hematocrit 44.0 42.0 - 52.0 % [facility] Mean Corpuscular Volume 89.6 80.0 - 98.0 fL [facility] Mean Corpuscular Hemoglobin 29.7 27.0 - 33.0 pg [facility] Mean Corpuscular HGB Conc 33.2 31.0 - 36.0 g/dl [facility] Red Cell Distribution Width 11.9 11.0 - 16.0 % [facility] Platelet Count 231 160 - 400 X10*3/uL [facility] Mean Platelet Volume 12.1 9.4 - 12.4 fL [facility] NRBC Pct Auto 0.0 0.0 - 0.2 /100WBC [facility] NRBC Abs Auto 0.000 0.0 - 0.012 X10*3/uL [facility] 11/30/2024 11:5 8 AM EDT 11/30/2024 11:59 AM EDT us Generic External Data Provider LAB BLOOD ORDERAB LES Final Result Performing Organization Address City/State/[facility] Co de Phone Number [facility] [address] [place] [phone] * (ABNORMAL) Lipid Panel, Standard (01/09/2024 8:46 AM EDT) Triglycerides 83 <150 mg/dL [facility] Comment:Desirable Triglyceri de: less than 150 mg/dLBorderline High Triglyceride 150-199 mg/dLHigh Triglyceride: 200-499 mg/dLVery High Triglyceride: greater than or equal to 5OO mg/dL Cholesterol 141 <200 mg/dL [facility] Comment:Desirable Cholestero l: less than 200 mg/dLBorderline High Cholesterol: 200-239 mg/dLHigh Cholesterol: greater than 239 mg/dL LDL Cholesterol Calculated 90 <100 mg/dL [facility] Comment:Desirable LDL: less than 100 mg/dLNear Optimal/Above Optimal LDL: 110- 129 mg/dLBorderline High LDL: 130-159 mg/dLHigh LDL: 160-189 mg/dLVery High LDL: greater than or equal to 190 mg/dL HDL Cholesterol 35(L) >40 mg/dL [facility] Comment:Desirable HDL: great er than 40 mg/dL Note: This HDL assay may give artificially low results in patients with liver disease. Blood Venous blood specimen / Unknown 01/09/2024 8:46 AM EDT 01/09/2024 2:27 PM EDT Gisselle Fuentes MD LAB BLOOD ORDERABLES Final Result Performing Organization Address [facility] Co de Phone Number [facility] [address] [place] [phone] [phone] * HEPATITIS C AB W/REFL TO HCV RNA, QN, PCR (09/21/2021 11:50 AM EST) HEPATITIS C ANTIBODY NON-REACT ESM[facility] NON-REACT [facility] INDEX 0.12 <1.00 [facility] Comment: ?? HCV antibody was non-reactive. There is no laboratory ?? evidence of HCV infection. ?? In most cases, no further action is required. However, if recent HCV exposure is suspected, a test for HCV RNA (test code 80855) is suggested. ?? For additional information please refer to http://education.Seeo/faq/RFW74r6 (This link is being provided for informational/ educational purposes only.) ?? 09/21/2021 11:5 0 AM EST Gisselle Fuentes MD HISTORICAL/NON ORDERABLE LA BS Final Result Performing Organization Address [facility] Co de Phone Number [facility] [address] * HIV 1/2 ANTIGEN/ANTIBODY,FOURTH GENERATION W/RFL (09/21/2021 11:50 AM EST) HIV-1/2 ANTIGEN AND ANTIBODIES, 4TH GENERATION W/ REFLEX NON-REACT [facility]ER NON-REACT [facility] Comment: HIV-1 antigen and HIV-1/HIV-2 [...] ? For additional information please refer to http://education.Seeo/faq/GNR977 (This link is being provided for informational/ educational purposes only.) ? The performance of this assay has not been clinically validated in patients less than 2 years old. ?? 09/21/2021 11:5 0 AM EST us Gisselle Fuentes MD LAB BLOOD ORDERABLES Final Result [facility] [address] from Last 3 Months or Most Recently Relevant to Health Maintenance Insurance [facility] Care Teams Linseed Cake Trimmer Relationship Specialty Start Date End Date Gisselle Fuentes MD [address] [place] [phone] PCP - General Internal Medicine 09/23/17
[2024-12-10 12:13] LABS: Hematocrit 43.5 % (42.0-52.0); Hemoglobin 14.9 g/dl (14.0-18.0); Mean Corpuscular HGB Conc 34.3 g/dl (31.0-36.0); Mean Corpuscular Hemoglobin 30.2 pg (27.0-33.0); Mean Corpuscular Volume 88.2 fL (80.0-98.0); Mean Platelet Volume 11.6 fL (9.4-12.4); Platelet Count 245 X10*3/uL (160-400); Red Blood Count 4.93 X10*6/uL (4.60-5.80); Red Cell Distribution Width 11.9 % (11.0-16.0); White Blood Count 8.5 X10*3/uL (4.8-10.8)
[2024-12-10 13:21] LABS: Prostate Specific Antigen 0.36 ng/mL (<0.05-4.0)
[2024-12-16 09:14] LABS: Testosterone, Free 40.5 pg/mL (35.0-155.0); Testosterone, Total 185 ng/dL (250-1100)
== END 2024-12-10 11:43 | disposition home or self-care (01) ==
LOC: HO.LAB 11:42
PROVIDERS: PCP Internal Medicine; Visit Provider Nurse Practitioner Family
DX: E29.1 Testicular hypofunction (principal); N52.9 Male erectile dysfunction, unspecified; F52.4 Premature ejaculation
CPT/HCPCS: 36415; 84153; 84402; 84403; 85027

== ENCOUNTER 2024-12-18 13:18 | Outpatient (AMB) | payer OTHER, SELFPAY ==
--- NOTE | 2024-12-18 13:26 | A.OFFVIS_ITS ---
Intake Visit Reasons: 3m/labs Intake Note: Patient presents today for follow up visit on: Erectile Dysfunction, h ypogonadism, and labs * Testosterone: 185 * Free Testosterone: 40.5 * PSA: 0.36 Urology Medications: tadalafil, testosterone Blood Thinner: none Craft Manager Required: Yes Craft Manager Name: MARIAN GILLESPIELettyMely Accompanied by: Self / Same As Patient Allergies No Known Allergies Allergy (Verified 12/18/24 21:08) Medication List - Last Reconciled 12/18/24 by LAKHWINDER Lares-NIMESH levothyroxine 25 mcg PO DAILY methocarbamol 750 mg PO Q6H semaglutide (weight loss) (Wegovy) mg subcut tadalafil 20 mg PO ONCE PRN 30 days testosterone 4 pumps topical DAILY 30 days tizanidine 4 mg PO Q6-8H PRN HPI Comments Details: Tawanda is a 39-year-old Uzbek-speaking male patient of Dr. Fuentes. He has a past medical history of back pain, obesity, hypothyroidism, and sleep apnea. He presents to the office today for follow-up of his hypogonadism and erectile dysfunction. In discussion with the patient today he reports compliance with testosterone pump as prescribed. Recent labs were reviewed with the patient today as noted and trended below: PSA 03/14 0.2, 08/14 0.4, 12/14 0.4 Testosterone 03/14 144, 08/14 228, 12/14 185 Free testosterone 03/14 35.3, 08/14 45.4, 40.5 H/H 03/14 14.8/44.4, 08/14 15.9/46.3, 12/14 14.9/43.5 We discussed continuation of low testosterone despite testosterone replacement via topical therapy. He continues to report issues with premature ejaculation when having intercourse with his however during masturbation does not feel he has any ED and or premature ejaculation. He discusses at length his previous history of anabolic steroid use when he was 16 years old. He also discusses u ndergoing a varicocelectomy and circumcision in [place] many years ago and feels since these procedures he has noted issues with premature ejaculation. We discussed potential causes of premature ejaculation as well as further treatment options and risks and benefits of these treatment options. He also reports having had a previous infertility workup in [place] and being told he had decreased mobility to sperm. He reports initially he was not enquiring infertility workup as his had been newly diagnosed with lupus however he reports in discussion with his he would like to undergo further infertility workup. We discussed contraindication to testosterone replacement. We discussed testosterone replacement verses testosterone recovery with clomid and or HCG. We discussed obtaining fellows kit for further assessment and evaluation. He continues to follow-up with his PCP regarding weight management. He reports being on Wegovy and has lost over 30 lb in the last 9 months intentionally. He otherwise denies any issues with his urination. He denies urinary urgency, urinary frequency, incontinence, nocturia, hematuria, dysuria, foul smelling urine, changes to urinary stream, flank pain, fever, and or chills. Previous office note information: Erectile dysfunction: He presents today for further evaluation of ejaculatory disorder. Symptoms have been present for/since Several months. Current treatment includes none. Has used tadalafil in the past At this time he experiences erections are partial and adequate for vaginal penetration, that last until ejaculation. Currently they are in a stable relationship. 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 Review of Systems Const All systems reviewed & are unremarkable except as noted in HPI and below Eyes Reports no additional complaints ENT Reports no additional complaints Card Reports no additional complaints Resp Reports as per HPI GI Reports no additional complaints Reports as per HPI Musc Reports as per HPI Neuro Reports no additional complaints Psych Reports no additional complaints Endo Reports as per HPI Ronaldo/Lymph Reports no additional complaints Aller/Immun Reports no additional complaints Physical Exam Const General: cooperative, healthy appearing, comfortable, no acute distress, well developed, alert and awake Nutritional Appearance: overweight Orientation/consciousness: patient oriented x3 Limitations: no limitations HEENT Head: Yes normal to inspection, Yes normocephalic and Yes atraumatic Ears: hearing grossly normal bilaterally Eyes General: appearance normal, both eyes and all related structures Neck Neck: Yes normal visual inspection and Yes trachea midline Chest Chest palpation & inspection: normal inspection of the chest Resp Effort & Inspection: normal respiratory effort and able to speak in complete sentences Cardio Rate: regular rate GI Inspection: Yes normal to inspection General: Yes no CVA tenderness Back/Spine/Pelvis Back: no CVA tenderness Skin General skin exam: no rashes or lesions noted Neuro General: patient oriented x3 Extrem General: Yes normal to inspection Psych Appearance: grossly normal and well kempt Mental Status: mental status grossly normal Speech and movement: Normal speech and movement present and Clear speech present Affect: normal affect Attitude: cooperative Thought process: Normal thought process present Thought content: Normal thought content present Insight: Fair insight present (Psych) Judgement: Fair judgement present (Psych) Results AMB Urinalysis, Automated UA Leukoctes 0 Stephany/uL Last Edit by [employer] on 12/18/24 14:07 UA Nitrite Last Edit by [employer] on 12/18/24 14:07 UA Urobilinogen 0.2 mg/dL Last Edit by [employer] on 12/18/24 14:07 UA Protein 15 mg/dL Last Edit by [employer] on 12/18/24 14:07 UA pH 6.0 Last Edit by [employer] on 12/18/24 14:07 UA Blood 0 Cj/uL Last Edit by [employer] on 12/18/24 14:07 UA Specific [place] 1.030 Last Edit by [employer] on 12/18/24 14:07 UA Ketone Last Edit by [employer] on 12/18/24 14:07 UA Bilirubin 0 mg/dL Last Edit by Reyes Garcia on 12/18/24 14:07 UA Glucose 0 mg/dL Last Edit by Reyes Garcia on 12/18/24 14:07 Results Reviewed Results Reviewed: Laboratory Last Values Urine pH (Auto) 6.0 12/18/24 14:05 Specific [place] (Auto) 1.030 12/18/24 14:05 Urine Protein (Auto) 15 mg/dL 12/18/24 14:05 Glucose (UA)(Auto) 0 mg/dL 12/18/24 14:05 Urine Blood (Auto) 0 Cj/uL 12/18/24 14:05 Urine Bilirubin (Auto) 0 mg/dL 12/18/24 14:05 Urine Urobilinogen (Auto) 0.2 mg/dL 12/18/24 14:05 Leukocyte Esterase (Auto) 0 Stephany/uL 12/18/24 14:05 Assessment & Plan Assessment & Plan (1) Premature ejaculation: Code(s): F52.4 - Premature ejaculation Category: Medical (2) Hypogonadism in male: Code(s): E29.1 - Testicular hypofunction Category: Medical Plan We discussed contraindication to testosterone replacement and desires/fertility. Will obtain semen analysis via fellows kit for further assessment evaluation. Stop testosterone. We discussed testosterone replacement verses testosterone recovery Will obtain LH for further assessment evaluation We discussed potential causes of premature ejaculation as well as further treatment options risks were reviewed so these treatment options We discussed importance of lifestyle modifications to assist with overall health and well-being as well as urological conditions. Follow-up with Dr. Tejeda with labs and semen analysis to be completed prior; or sooner with any issues, concerns, and or questions. Orders: Orders Sex Hormone Binding Globulin 3 Months E29.1 - Testicular hypofunction Prolactin 3 Months E29.1 - Testicular hypofunction Follicle Stimulating Hormone 3 Months E29.1 - Testicular hypofunction AMB Urinalysis Automated Today Z13.9 - Encounter for screening, unspecified Testosterone, Free/Total 3 Months E29.1 - Testicular hypofunction Lutenizing Hormone Today E29.1 - Testicular hypofunction Lutenizing Hormone 3 Months E11.69 - Type 2 diabetes mellitus with other specified complication, N52.1 - Erectile dysfunction due to diseases classified elsewhere Patient Instructions: The patient had an opportunity to ask questions regarding the treatment plan. All questions were answered. Physical exam, labs, and imaging were discussed and reviewed in detail. As well as risks, benefits, and discussion of treatment choices. No major barriers to understanding were identified. The patient expressed understanding and agreement with the above treatment plan. The patient was made aware they should contact our office by phone for worsening of their current condition, the appearance of new symptoms, or with any questions or concerns. Compliance is encouraged with any medications and follow up testing that is ordered. It is a privilege to be allowed the opportunity to participate in? your urological care.? Again, if you have any questions or concerns If you have any questions or concerns please do not hesitate to contact me. The office is [phone]. This note is constructed using voice recognition software. While every effort has been made to ensure accuracy driver/sales workers errors may have been included. Yours sincerely, TU Lares Coding Level of Care Code Est Pt Level 4 (33126) Diagnoses Premature ejaculation F52.4 Hypogonadism in male E29.1 Time Spent (min) 40
--- OUTSIDE RECORDS SUMMARY | 2024-12-18 15:24 | XMS_ITS | Clinical Summary ---
Author Organization [address] [facility] Address [address] [place] [address] Phone Care Team Providers Care Career Placement Specialist Name Role Phone Gisselle Fuentes MD Primary Care Provider [phone] Social History Tobacco Use Types Packs/Day Years [...] topic Insurance MEDICA[place] - [place] Care Teams Career Placement Specialist Relationship Specialty Start Date End Date Gisselle Fuentes MD [address] [place], [place] PCP - General 05/26/22
--- OUTSIDE RECORDS SUMMARY | 2024-12-18 15:24 | XMS_ITS | Encounter Summary ---
Author Organization [employer] Address [address] [place] [address] Care Team Providers Care Arts Administrator Name Role Phone Gisselle Fuentes MD Primary Care Provider [phone]- [phone] Encounter Details Date Type Department Care Team ([facility] Contact Info) Description 06/29/2024 Orders Only [facility] MED & PEDS [address] [place], [place] [phone] Gisselle Fuentes MD [address] [place] [address] Severe obesity (BMI >= 40) (CMS/HCC) (Primary [...] [facility] [address] [place] [address] Gisselle Fuentes MD [address] [place] [address] documented as of this encounter Visit Diagnoses Diagnosis Severe obesity (BMI >= 40) (CMS/HCC)- Primary documented in this encounter Additional Health Concerns Assessment Noted Time PHQ-9 Depression Total Score: 0 01/11/20 23 3:21 PM EDT documented as of this encounter Care Teams Arts Administrator Relationship Specialty Start Date End Date Gisselle Fuentes MD [address] [place] [address] PCP - General Internal Medicine 09/23/17 documented as of this encounter
--- OUTSIDE RECORDS SUMMARY | 2024-12-18 15:24 | XMS_ITS | Encounter Summary ---
Author Organization [employer] Address [address] [place] [address] Care Team Providers Care Music Intern Name Role Phone Gisselle Fuentes MD Primary Care Provider [phone]- [phone] Encounter Details Date Type Department Care Team ([facility] Contact Info) Description 07/23/2024 Orders Only [facility] MED & PEDS [address] [place], [place] [phone] Gisselle Fuentes MD [address] [place] [address] Severe obesity (BMI >= 40) (CMS/HCC) (Primary [...] 12/31/2024 3:15 PM EDT Office Visit [facility] MED & PEDS [address] [place] [address] Gisselle Fuentes MD [address] [place] [address] documented as of this encounter Visit Diagnoses Diagnosis Severe obesity (BMI >= 40) (CMS/HCC)- Primary documented in this encounter Additional Health Concerns Assessment Noted Time PHQ-9 Depression Total Score: 0 01/11/20 23 3:21 PM EDT documented as of this encounter Care Teams Music Intern Relationship Specialty Start Date End Date Gisselle Fuentes MD [address] [place] [address] PCP - General Internal Medicine 09/23/17 documented as of this encounter
--- OUTSIDE RECORDS SUMMARY | 2024-12-18 15:24 | XMS_ITS | Clinical Summary ---
Author Organization [employer] Address [address] [facility] [address] [place] [address] Care Team Providers Care Jet Pilot Name Role Phone Gisselle Fuentes MD Primary [...] Encounters Date Type Department Care Team Description 12/10/2024 Orders Only GENERIC EXTERNAL DATA DEPARTMENT Provider, Generic External Data 11/30/2024 Orders Only GENERIC EXTERNAL DATA DEPARTMENT Provider, Generic External Data 11/16/[address] [facility] MED & PEDS [address] [place] [address] Gisselle Fuentes MD Prior Authorization 11/15/[address] [facility] MED & PEDS [address] [place] [address] Gisselle Fuentes MD Med Refill 11/12/[address] [address] Gisselle Fuentes MD Med Refill 10/03/[address] [facility] MED & PEDS [address] [place] [address] Gisselle Fuentes MD 10/02/[address] [facility] MED & PEDS [address] [place] [address] Gisselle Fuentes MD Severe obesity (BMI >= 40) ([facility]) 10/01/2024 3:30 PM EST Office Visit [facility] MED & PEDS [address] [place] [address] Gisselle Fuentes MD Severe obesity (BMI >= 40) ([facility]) (Primary Dx); Dietary counseling; Exercise counseling; Class 3 severe obesity due to excess calories with serious comorbidity and body mass index (BMI) of 40.0 to 44.9 in adult ([facility]) 10/01/[address] [facility] MED [facility] PEDS [address] [place] [address] Gisselle Fuentes MD Severe obesity (BMI >= 40) ([facility]) 10/01/2024 Travel 09/27/[address] [facility] MED & PEDS [address] [place] [address] Gisselle Fuentes MD chart prep from Last [...] Upcoming Encounters Date Type Department Care Team ([facility] st Contact Info) Description 12/31/2024 3:15 PM EDT Office Visit [facility] CHC MED & PEDS [address] [place] [address] Gisselle Fuentes MD [address] [place] [address] Health Maintenance Due Date Last Done Comments [...] Comments TESTOSTERONE, FREE (DIALYSIS) AND TOTAL,MS Routine 12/10/2024 11:53 AM EDT PSA, TOTAL Routine 12/10/2024 11:53 AM EDT CBC Routine 12/10/2024 11:53 AM EDT CANCELLED CHEMISTRY Routine 11/30/2024 1 1:58 AM [...] Recently Relevant to Health Maintenance Results * CBC (12/10/2024 11:53 AM EDT) Only the most recent of2 resultswithin the time period is included. White Blood Count 8.5 4.8 - 10.8 X10*3/uL [facility] Red Blood Count 4.93 4.60 - 5.80 X10*6/uL [facility] Hemoglobin 14.9 14.0 - 18.0 g/dl [facility] Hematocrit 43.5 42.0 - 52.0 % [facility] Mean Corpuscular Volume 88.2 80.0 - 98.0 fL [facility] Mean Corpuscular Hemoglobin 30.2 27.0 - 33.0 pg [facility] Mean Corpuscular HGB Conc 34.3 31.0 - 36.0 g/dl [facility] Red Cell Distribution Width 11.9 11.0 - 16.0 % [facility] Platelet Count 245 160 - 400 X10*3/uL [facility] Mean Platelet Volume 11.6 9.4 - 12.4 fL [facility] NRBC Pct Auto 0.0 0.0 - 0.2 /100WBC [facility] NRBC Abs Auto 0.000 0.0 - 0.012 X10*3/uL [facility] 12/10/2024 11:5 3 AM EDT 12/10/2024 11:53 AM EDT us Generic External Data Provider LAB BLOOD ORDERAB LES Final Result [facility] [address] [place] [address] [phone] * (ABNORMAL) Testosterone, Free (Dialysis) And Total, MS (12/10/2024 11:53 AM EDT) Testosterone, Total 185(A) 250 - 1100 ng/dL [facility] Comment:Men with clinically significant hypogonadal symptoms and testosterone valuesrepeatedly in the range of the 200-300 ng/dL or less, may benefit fromtestosterone treatment after adequate risk and benefits counseling.For additional information, please refer tohttps://education.Lumiata.CellCentric/faq/JUP974(This link is being provided for informational/educational purposes only.)(Note)This test was developed and its analytical performancecharacteristics have been determined by [employer]. It hasnot been cleared or approved by the FDA. This assay hasbeen validated pursuant to the CLIA regulations and isused for clinical purposes. Testosterone, Free 40.5 35.0 - 155.0 pg/mL [facility] Comment:(Note)This test was developed and its analytical performancecharacteristics have been determined by [employer]. It hasnot been cleared or approved by the FDA. This assay hasbeen validated pursuant to the CLIA regulations and isused for clinical purposes.MDFmed [id number] [address],[address] [place] [address] [phone] Leonard Watts MD, PhDTHIS TEST WAS PERFORMED AT:[id number] [place] [phone] WATTS MD,PHD 12/10/2024 11:5 3 AM EDT 12/10/2024 11:53 AM EDT Generic External Data Provider LAB BLOOD ORDERAB LES Final Result Performing Organization Address [facility]/ZIP Co de Phone Number [facility] [address] [place] [phone] * PSA,Total (12/10/2024 11:53 AM EDT) Prostate Specific Antigen 0.36 <0.05 - 4.0 ng/mL [facility] Comment:PSA methodology: Abb frances Alinity i ChemiluminescentMicroparticle Immunoassay (CMIA) 12/10/2024 11:5 3 AM EDT 12/10/2024 11:53 AM EDT Generic External Data Provider LAB BLOOD ORDERAB LES Final Result Performing Organization Address [facility] Co de Phone Number [facility] [address] [place] [phone] * Cancelled Chemistry (11/30/2024 11:58 AM EDT) Cancelled Chemistry SEE NOTE [facility] Comment:THE FOLLOWING TESTS WERE CANCELLED: TESTOSTERONE FR + TOTREASON: NO SPECIMEN COLLECTED/RECEIVED 11/30/2024 11:5 8 AM EDT 11/30/2024 11:59 AM EDT us Generic External Data Provider HISTORICAL/NON OR DERABLE LABS Final Result Performing Organization Address [facility]/ZIP Co de Phone Number [facility] [address] [place] [phone] * (ABNORMAL) Lipid Panel, Standard (01/09/2024 8:46 AM EDT) Triglycerides 83 <150 mg/dL [facility] Comment:Desirable Triglyceri de: less than 150 mg/dLBorderline High Triglyceride 150-199 mg/dLHigh Triglyceride: 200-499 mg/dLVery High Triglyceride: greater than or equal to 5OO mg/dL Cholesterol 141 <200 mg/dL [facility] Comment:Desirable Cholestero l: less than 200 mg/dLBorderline High Cholesterol: 200-239 mg/dLHigh Cholesterol: greater than 239 mg/dL LDL Cholesterol Calculated 90 <100 mg/dL [facility] Comment:Desirable LDL: less than 100 mg/dLNear Optimal/Above Optimal LDL: 110- 129 mg/dLBorderline High LDL: 130-159 mg/dLHigh LDL: 160-189 mg/dLVery High LDL: greater than or equal to 190 mg/dL HDL Cholesterol 35(L) >40 mg/dL [facility] Comment:Desirable HDL: great er than 40 mg/dL Note: This HDL assay may give artificially low results in patients with liver disease. Blood Venous blood specimen / Unknown 01/09/2024 8:46 AM EDT 01/09/2024 2:27 PM EDT us Gisselle Fuentes MD LAB BLOOD ORDERABLES Final Result Performing Organization Address [facility]/ZIP Co de Phone Number [facility] [address] [place] [address] [phone] * HEPATITIS C AB W/REFL TO HCV RNA, QN, PCR (09/21/2021 11:50 AM EST) HEPATITIS C ANTIBODY NON-REACT ESMER NON-REACT ESMER [facility] INDEX 0.12 <1.00 [facility] Comment: ?? HCV antibody was non-reactive. There is no laboratory ?? evidence of HCV infection. ?? In most cases, no further action is required. However, if recent HCV exposure is suspected, a test for HCV RNA (test code 23605) is suggested. ?? For additional information please refer to http://Hazel Mail.salgomed/faq/LNX95v3 (This link is being provided for informational/ educational purposes only.) ?? 09/21/2021 11:5 0 AM EST Gisselle Fuentes MD HISTORICAL/NON ORDERABLE LA BS Final Result [facility] [address] * HIV 1/2 ANTIGEN/ANTIBODY,FOURTH GENERATION W/RFL (09/21/2021 11:50 AM EST) HIV-1/2 ANTIGEN AND ANTIBODIES, 4TH GENERATION W/ REFLEX NON-REACT ESMER NON-REACT ESMER [facility] Comment: HIV-1 antigen and HIV-1/HIV-2 [...] ? For additional information please refer to http://Hazel Mail.salgomed/faq/JIR251 (This link is being provided for informational/ educational purposes only.) ? The performance of this assay has not been clinically validated in patients less than 2 years old. ?? 09/21/2021 11:5 0 AM EST us Gisselle Fuentes MD LAB BLOOD ORDERABLES Final Result [facility] [address] from Last 3 Months or Most Recently Relevant to Health Maintenance [facility] Care Teams Jet Pilot Relationship Specialty Start Date End Date Gisselle Fuentes MD [address] [place] [phone] PCP - General Internal Medicine 09/23/17
--- OUTSIDE RECORDS SUMMARY | 2024-12-18 15:24 | XMS_ITS | Encounter Summary ---
Author Organization [employer] Address [address] [facility] 7t [place] [address] Care Team Providers Care Apartment Maintenance Supervisor Name Role Phone Gisselle Fuentes MD Primary Care Provider Reason for Visit * Reason Onset Date Comments Prior Authorization 06/26/2024 Medication Question 06/26/2024 Encounter Details Date Type Department Care Team ([facility] st Contact Info) Description 06/26/2024 Telephone [facility] [address] [place] [address] Gisselle Fuentes MD [address] [place], [place] [phone] Prior Authorization; Medication Question Social History Tobacco [...] Description 12/31/2024 3:15 PM EDT Office Visit [facility] MED & PEDS [address] [place] [address] Gisselle Fuentes MD [address] [place] [address] documented as of this encounter Visit Diagnoses Not on filedocumented in this encounter Additional Health Concerns Assessment Noted Time PHQ-9 Depression Total Score: 0 01/11/20 23 3:21 PM EDT documented as of this encounter Care Teams Apartment Maintenance Supervisor Relationship Specialty Start Date End Date Gisselle Fuentes MD [address] [place] [address] PCP - General Internal Medicine 09/23/17 documented as of this encounter
--- OUTSIDE RECORDS SUMMARY | 2024-12-18 15:24 | XMS_ITS | Encounter Summary ---
Author Organization [employer] Address 75 [facility] 7 [place] [address] Care Team Providers Care Construction Rep Name Role Phone iGsselle Fuentes MD Primary Care Provider +1- [phone] Reason for Visit * Reason Comments Med Change Request Encounter Details Date Type Department Care Team ([facility] Contact Info) Description 10/02/2024 Refill [facility] [address] [place], [place] [phone] Gisselle Fuentes MD 505 [place], [place] [phone] Severe obesity (BMI >= 40) (CMS/HCC) Social [...] and med not available. Please return call [phone] documented in this encounter Plan of Treatment Upcoming Encounters Date Type Department Care Team (Late st Contact Info) Description 12/31/2024 3:15 PM EDT Office Visit [facility] & [facility]S [address] [place] [address] Gisselle Fuentes MD 505 [place] [address] documented as of this encounter Visit Diagnoses Diagnosis Severe obesity (BMI >= 40) (CMS/HCC) documented in this encounter Additional Health Concerns Assessment Noted Time PHQ-9 Depression Total Score: 5 10/01/19 25 4:13 PM EST documented as of this encounter Care Teams Construction Rep Relationship Specialty Start Date End Date Gisselle Fuentes MD 505 [place] [address] PCP - General Internal Medicine 09/23/17 documented as of this encounter
--- OUTSIDE RECORDS SUMMARY | 2024-12-18 15:24 | XMS_ITS | Encounter Summary ---
Author Organization [employer] Address 75 [facility] [address] 7t [place] [address] Care Team Providers Care Technology Engineer Name Role Phone Gisselle Fuentes MD Primary Care Provider Encounter Details Date Type Department Care Team ([facility] st Contact Info) Description 10/03/2024 Orders Only [facility] MED & PEDS [address] [place], [place] [phone] Gisselle Fuentes MD 505 [place] [address] Social History Tobacco Use Types Packs/Day Years [...] Description 12/31/2024 3:15 PM EDT Office Visit [facility] MED [facility]EDS [address] [place] [address] Gisselle Fuentes MD 505 [place] [address] documented as of this encounter Visit Diagnoses Not on filedocumented in this encounter Additional Health Concerns Assessment Noted Time PHQ-9 Depression Total Score: 5 10/01/19 25 4:13 PM EST documented as of this encounter Care Teams Technology Engineer Relationship Specialty Start Date End Date Gisselle Fuentes MD 505 [place] [address] PCP - General Internal Medicine 09/23/17 documented as of this encounter
--- OUTSIDE RECORDS SUMMARY | 2024-12-18 15:24 | XMS_ITS | Encounter Summary ---
Author Organization [employer] Address [address] [facility] [address] 7t [place] [address] Care Team Providers Care Disk And Tape Machine Tender Name Role Phone Gisselle Fuentes MD Primary Care Provider +1- [phone] Reason for Visit * Reason Onset Date Comments Medication Question 07/23/2024 Encounter Details Date Type Department Care Team ([facility] st Contact Info) Description 07/23/2024 Telephone [facility] [address] [place] [address] Gisselle Fuentes MD 505 [place], [place] [phone] Medication Question Social History Tobacco Use Types [...] Description 12/31/2024 3:15 PM EDT Office Visit [facility]EDS 505 [place] [address] Gisselle Fuentes MD 505 [place] [address] documented as of this encounter Visit Diagnoses Not on filedocumented in this encounter Additional Health Concerns Assessment Noted Time PHQ-9 Depression Total Score: 0 01/11/20 23 3:21 PM EDT documented as of this encounter Care Teams Disk And Tape Machine Tender Relationship Specialty Start Date End Date Gisselle Fuentes MD 505 [place] [address] PCP - General Internal Medicine 09/23/17 documented as of this encounter
--- OUTSIDE RECORDS SUMMARY | 2024-12-18 15:24 | XMS_ITS | Encounter Summary ---
Author Organization [employer] Address [address] [facility] [address] 7t [place] [address] Care Team Providers Care Gas Engine Performance Engineer Name Role Phone Gisselle Fuentes MD Primary Care Provider +1- [phone] Encounter Details Date Type Department Care Team ([facility] st Contact Info) Description 04/24/2024 Orders Only [facility] MED & PEDS 505 [place], [place] [phone] Gisselle Fuentes MD 505 [place] [address] Severe obesity (BMI >= 40) (CMS/HCC) (Primary [...] 12/31/2024 3:15 PM EDT Office Visit [facility] MED & PEDS 505 [place] [address] Gisselle Fuentes MD 505 [place] [address] documented as of this encounter Visit Diagnoses Diagnosis Severe obesity (BMI >= 40) (CMS/HCC)- Primary documented in this encounter Additional Health Concerns Assessment Noted Time PHQ-9 Depression Total Score: 0 01/11/20 23 3:21 PM EDT documented as of this encounter Care Teams Gas Engine Performance Engineer Relationship Specialty Start Date End Date Gisselle Fuentes MD 505 [place] [address] PCP - General Internal Medicine 09/23/17 documented as of this encounter
--- OUTSIDE RECORDS SUMMARY | 2024-12-18 15:24 | XMS_ITS | Encounter Summary ---
Author Organization [employer] Address 75 [facility] 7 [place] [address] Care Team Providers Care Boat Canvas Maker And Installer Name Role Phone Gisselle Fuentes MD Primary Care Provider +1- [phone] Reason for Referral * Imaging (Routine) - Closed Specialty Diagnoses / Procedures Referred By Reshma younger Referred To Contact Radiology Diagnoses Abnormal LFTs Procedures US Abdomen Complete Gisselle Fuentes MD [address] [place] [address] Phone: tel: fax: [address] Phone: tel: fax: Referral ID Status Reason Start Date Expiration Date Visits Re quested Visits Authorized [id number] Closed 01/10/2024 01/09/2025 1 1 Encounter Details Date Type Department Care Team (Late st Contact Info) Description 01/10/2024 Orders Only [facility] MED & PEDS 505 [place], [place] [phone] Gisselle Fuentes MD [address] [place] [address] Abnormal LFTs (Primary Dx) Social History Tobacco [...] Upcoming Encounters Date Type Department Care Team ([facility] st Contact Info) Description 12/31/2024 3:15 PM EDT Office Visit [facility] MED & PEDS 505 [place] [address] Gisselle Fuentes MD 505 [place] [address] Scheduled Orders Name Type Priority Associated Diagnoses Orde r Schedule US Abdomen Complete Imaging Routine Abnormal LFTs Expected: 01/10/2024, Expires: 01/09/2025 documented as of this encounter Visit Diagnoses Diagnosis Abnormal LFTs- Primary documented in this encounter Additional Health Concerns Assessment Noted Time PHQ-9 Depression Total Score: 0 01/11/20 23 3:21 PM EDT documented as of this encounter Care Teams Boat Canvas Maker And Installer Relationship Specialty Start Date End Date Gisselle Fuentes MD [address] [place] [address] PCP - General Internal Medicine 09/23/17 documented as of this encounter
--- OUTSIDE RECORDS SUMMARY | 2024-12-18 15:24 | XMS_ITS | Encounter Summary ---
Author Organization [employer] Address 75 [facility] [address] 7t [place] [address] Care Team Providers Care Building Insulation Supervisor Name Role Phone Gisselle Fuentes MD Primary Care Provider +1- [phone] Encounter Details Date Type Department Care Team ([facility] st Contact Info) Description 05/15/2024 Orders Only [facility] MED & PEDS [address] [place], [place] [phone] Gisselle Fuentes MD 505 [place] [address] Severe obesity (BMI >= 40) (CMS/HCC) (Primary [...] [facility] 505 [place] [address] Gisselle Fuentes MD 505 [place] [address] documented as of this encounter Visit Diagnoses Diagnosis Severe obesity (BMI >= 40) (CMS/HCC)- Primary documented in this encounter Additional Health Concerns Assessment Noted Time PHQ-9 Depression Total Score: 0 01/11/20 23 3:21 PM EDT documented as of this encounter Care Teams Building Insulation Supervisor Relationship Specialty Start Date End Date Gisselle Fuentes MD 505 [place] [address] PCP - General Internal Medicine 09/23/17 documented as of this encounter
--- OUTSIDE RECORDS SUMMARY | 2024-12-18 15:24 | XMS_ITS | Encounter Summary ---
Author Organization [employer] Address 75 [facility] 7 [place] [address] Care Team Providers Care Director Utilization Management Name Role Phone Gisselle Fuentes MD Primary Care Provider +1- [phone] Reason for Visit * Reason Comments Med Change Request Encounter Details Date Type Department Care Team ([facility] Contact Info) Description 04/24/2024 Refill [facility] MED & PEDS 505 [place], [place] [phone] Gisselle Fuentes MD 505 [place], [place] [phone] Severe obesity (BMI >= 40) (CMS/HCC) Social [...] Description 12/31/2024 3:15 PM EDT Office Visit [facility] MED [facility] PEDS 505 [place] [address] Gisselle Fuentes MD 505 [place] [address] documented as of this encounter Visit Diagnoses Diagnosis Severe obesity (BMI >= 40) (CMS/HCC) documented in this encounter Additional Health Concerns Assessment Noted Time PHQ-9 Depression Total Score: 0 01/11/20 23 3:21 PM EDT documented as of this encounter Care Teams Director Utilization Management Relationship Specialty Start Date End Date Gisselle Fuentes MD 505 [place] [address] PCP - General Internal Medicine 09/23/17 documented as of this encounter
--- OUTSIDE RECORDS SUMMARY | 2024-12-18 15:24 | XMS_ITS | Encounter Summary ---
Author Organization [email or web address] Address [address] [facility] [address] 7t [place] [address] Care Team Providers Care Boiler Washer Name Role Phone Gisselle Fuentes MD Primary Care Provider +1- [phone] Reason for Visit * Reason Onset Date Comments Medication Question 04/20/2024 Encounter Details Date Type Department Care Team ([facility] st Contact Info) Description 04/20/2024 Telephone [facility] [address] [place] [address] Gisselle Fuentes MD 505 [place], [place] [phone] Medication Question Social History Tobacco Use Types [...] increase of Wegovy to be sent to [facility] pharmacy . documented in this encounter Plan of Treatment Upcoming Encounters Date Type Department Care Team ([facility] st Contact Info) Description 12/31/2024 3:15 PM EDT Office Visit [facility] MED & PEDS 505 [place] [address] Gisselle Fuentes MD 505 [place] [address] documented as of this encounter Visit Diagnoses Not on filedocumented in this encounter Additional Health Concerns Assessment Noted Time PHQ-9 Depression Total Score: 0 01/11/20 23 3:21 PM EDT documented as of this encounter Care Teams Boiler Washer Relationship Specialty Start Date End Date Gisselle Fuentes MD 505 [place] [address] PCP - General Internal Medicine 09/23/17 documented as of this encounter
--- OUTSIDE RECORDS SUMMARY | 2024-12-18 15:24 | XMS_ITS | Encounter Summary ---
Author Organization [employer] Address 75 [facility] 7t [place] [address] Care Team Providers Care Wafer Cutter Name Role Phone Gisselle Fuentes MD Primary Care Provider +1- [phone] Encounter Details Date Type Department Care Team (Late st Contact Info) Description 01/18/2024 Orders Only [facility] [address] [place] [address] Provider, MD Lianet Social History Tobacco Use [...] Description 12/31/2024 3:15 PM EDT Office Visit [facility] MED & PEDS 505 [place] [address] Gisselle Fuentes MD 505 [place] [address] documented as of this encounter Procedures Procedure [...] documented as of this encounter Care Teams Wafer Cutter Relationship Specialty Start Date End Date Gisselle Fuentes MD 505 [place] [address] PCP - General Internal Medicine 09/23/17 documented as of this encounter
== END 2024-12-18 14:24 | disposition home or self-care (01) ==
LOC: HO.HUSH 13:19
PROVIDERS: PCP Internal Medicine; Visit Provider Nurse Practitioner Family
DX: F52.4 Premature ejaculation (principal); E29.1 Testicular hypofunction; Z13.9 Encounter for screening, unspecified
CPT/HCPCS: 99214

== ENCOUNTER 2024-12-18 13:18 | Outpatient (REF) | payer OTHER, SELFPAY ==
--- OUTSIDE RECORDS SUMMARY | 2024-12-18 16:42 | XMS_ITS | Encounter Summary ---
Author Organization [employer] Address 75 [facility] 7 [place] [address] Care Team Providers Care Correctional Officer Name Role Phone Gisselle Fuentes MD Primary Care Provider +1- [phone] Reason for Referral * Imaging (Routine) - Closed Specialty Diagnoses / Procedures Referred By Reshma younger Referred To Contact Radiology Diagnoses Abnormal LFTs Procedures US Abdomen Complete Gisselle Fuentes MD [address] [place] [address] Phone: tel: fax: [address] Phone: tel: fax: Referral ID Status Reason Start Date Expiration Date Visits Re quested Visits Authorized [id number] Closed 01/10/2024 01/09/2025 1 1 Encounter Details Date Type Department Care Team (Late st Contact Info) Description 01/10/2024 Orders Only [facility] MED & PEDS [address] [place], [place] [phone] Gisselle Fuentes MD [address] [place] [address] Abnormal LFTs (Primary Dx) Social History Tobacco [...] Upcoming Encounters Date Type Department Care Team ([facility] st Contact Info) Description 12/31/2024 3:15 PM EDT Office Visit [facility] MED & PEDS 505 [place] [address] Gisselle Fuentes MD 505 [place] [address] Scheduled Orders Name Type Priority Associated Diagnoses Orde r Schedule US Abdomen Complete Imaging Routine Abnormal LFTs Expected: 01/10/2024, Expires: 01/09/2025 documented as of this encounter Visit Diagnoses Diagnosis Abnormal LFTs- Primary documented in this encounter Additional Health Concerns Assessment Noted Time PHQ-9 Depression Total Score: 0 01/11/20 23 3:21 PM EDT documented as of this encounter Care Teams Correctional Officer Relationship Specialty Start Date End Date Gisselle Fuentes MD [address] [place] [address] PCP - General Internal Medicine 09/23/17 documented as of this encounter
--- OUTSIDE RECORDS SUMMARY | 2024-12-18 16:42 | XMS_ITS | Encounter Summary ---
Author Organization [employer] Address [address] [facility] [address] 7t [place] [address] Care Team Providers Care Slab Off Mill Tender Name Role Phone Gisselle Fuentes MD Primary Care Provider +1- [phone] Reason for Visit * Reason Onset Date Comments Medication Question 04/20/2024 Encounter Details Date Type Department Care Team ([facility] st Contact Info) Description 04/20/2024 Telephone [facility] MEDICINE [address] [place] [address] Gisselle Fuentes MD 505 [place], [place] [phone] Medication Question Social History Tobacco Use Types [...] increase of Wegovy to be sent to [facility] pharmacy . documented in this encounter Plan of Treatment Upcoming Encounters Date Type Department Care Team ([facility] st Contact Info) Description 12/31/2024 3:15 PM EDT Office Visit [facility] MED & PEDS 505 [place] [address] Gisselle Fuentes MD 505 [place] [address] documented as of this encounter Visit Diagnoses Not on filedocumented in this encounter Additional Health Concerns Assessment Noted Time PHQ-9 Depression Total Score: 0 01/11/20 23 3:21 PM EDT documented as of this encounter Care Teams Slab Off Mill Tender Relationship Specialty Start Date End Date Gisselle Fuentes MD 505 [place] [address] PCP - General Internal Medicine 09/23/17 documented as of this encounter
--- OUTSIDE RECORDS SUMMARY | 2024-12-18 16:42 | XMS_ITS | Encounter Summary ---
Author Organization [employer] Address [address] [facility] [address] 7t [place] [address] Care Team Providers Care Armature And Rotor Winder Name Role Phone Gisselle Fuentes MD Primary Care Provider +1- [phone] Encounter Details Date Type Department Care Team ([facility] st Contact Info) Description 04/24/2024 Orders Only [facility] MED & PEDS 505 [place], [place] [phone] Gisselle Fuentes MD 505 [place] [address] Severe obesity (BMI >= 40) (CMS/HCC) (Primary [...] Description 12/31/2024 3:15 PM EDT Office Visit [facility] MED & PEDS 505 [place] [address] Gisselle Fuentes MD 505 [place] [address] documented as of this encounter Visit Diagnoses Diagnosis Severe obesity (BMI >= 40) (CMS/HCC)- Primary documented in this encounter Additional Health Concerns Assessment Noted Time PHQ-9 Depression Total Score: 0 01/11/20 23 3:21 PM EDT documented as of this encounter Care Teams Armature And Rotor Winder Relationship Specialty Start Date End Date Gisselle Fuentes MD 505 [place] [address] PCP - General Internal Medicine 09/23/17 documented as of this encounter
--- OUTSIDE RECORDS SUMMARY | 2024-12-18 16:42 | XMS_ITS | Encounter Summary ---
Author Organization [employer] Address 75 [facility] 7 [place] [address] Care Team Providers Care Music Grapher Name Role Phone Gisselle Fuentes MD Primary Care Provider +1- [phone] Reason for Visit * Reason Comments Med Change Request Encounter Details Date Type Department Care Team ([facility] Contact Info) Description 04/24/2024 Refill [facility] MED & PEDS 505 [place], [place] [phone] Gisselle Fuentes MD 505 [place], [place] [phone] Severe obesity (BMI >= 40) (CMS/HCC) Social [...] Description 12/31/2024 3:15 PM EDT Office Visit [facility] MED & PEDS 505 [place] [address] Gisselle Fuentes MD 505 [place] [address] documented as of this encounter Visit Diagnoses Diagnosis Severe obesity (BMI >= 40) (CMS/HCC) documented in this encounter Additional Health Concerns Assessment Noted Time PHQ-9 Depression Total Score: 0 01/11/20 23 3:21 PM EDT documented as of this encounter Care Teams Music Grapher Relationship Specialty Start Date End Date Gisselle Fuentes MD 505 [place] [address] PCP - General Internal Medicine 09/23/17 documented as of this encounter
--- OUTSIDE RECORDS SUMMARY | 2024-12-18 16:42 | XMS_ITS | Encounter Summary ---
Author Organization [employer] Address 75 [facility] 7t [place] [address] Care Team Providers Care Firearms Inspector Name Role Phone Gisselle Fuentes MD Primary Care Provider +1- [phone] Encounter Details Date Type Department Care Team (Late st Contact Info) Description 01/18/2024 Orders Only [facility] [address] [place] [address] Provider, MD Lianet Social History Tobacco Use [...] Description 12/31/2024 3:15 PM EDT Office Visit [facility] MED & PEDS 505 [place] [address] Gisselle Fuentes MD 505 [place] [address] documented as of this encounter Procedures Procedure [...] documented as of this encounter Care Teams Firearms Inspector Relationship Specialty Start Date End Date Gisselle Fuentes MD 505 [place] [address] PCP - General Internal Medicine 09/23/17 documented as of this encounter
--- OUTSIDE RECORDS SUMMARY | 2024-12-18 16:42 | XMS_ITS | Encounter Summary ---
Author Organization [employer] Address [address] [facility] [address] 7t [place] [address] Care Team Providers Care Floor Director Name Role Phone Gisselle Fuentes MD Primary Care Provider Encounter Details Date Type Department Care Team ([facility] st Contact Info) Description 10/03/2024 Orders Only [facility] MED & PEDS 505 [place], [place] [phone] Gisselle Fuentes MD 505 [place] [address] Social History Tobacco Use Types Packs/Day Years [...] Description 12/31/2024 3:15 PM EDT Office Visit [facility] MED & PEDS 505 [place] [address] Gisselle Fuentes MD 505 [place] [address] documented as of this encounter Visit Diagnoses Not on filedocumented in this encounter Additional Health Concerns Assessment Noted Time PHQ-9 Depression Total Score: 5 10/01/19 25 4:13 PM EST documented as of this encounter Care Teams Floor Director Relationship Specialty Start Date End Date Gisselle Fuentes MD 505 [place] [address] PCP - General Internal Medicine 09/23/17 documented as of this encounter
--- OUTSIDE RECORDS SUMMARY | 2024-12-18 16:43 | XMS_ITS | Clinical Summary ---
Author Organization [facility] Address [address] [place] [address] Phone Care Team Providers Care Pack Press Operator Name Role Phone Gisselle Fuentes MD Primary Care Provider +1 -[phone] Social History Tobacco Use Types Packs/Day Years [...] topic Insurance MEDICAID - [place] Care Teams Pack Press Operator Relationship Specialty Start Date End Date Gisselle Fuentes MD [address] [place], [place] PCP - General 05/26/22
--- OUTSIDE RECORDS SUMMARY | 2024-12-18 16:43 | XMS_ITS | Encounter Summary ---
Author Organization [employer] Address [address] [facility] [address] 7t [place] [address] Care Team Providers Care Chip Tester Name Role Phone Gisselle Fuentes MD Primary Care Provider +1- [phone] Encounter Details Date Type Department Care Team ([facility] Contact Info) Description 06/29/2024 Orders Only [facility] MED & PEDS 505 [place], [place] [phone] Gisselle Fuentes MD 505 [place] [address] Severe obesity (BMI >= 40) (CMS/HCC) (Primary [...] 3:15 PM EDT Office Visit [facility] MED & PEDS 505 [place] [address] Gisselle Fuentes MD [address] [place] [address] documented as of this encounter Visit Diagnoses Diagnosis Severe obesity (BMI >= 40) (CMS/HCC)- Primary documented in this encounter Additional Health Concerns Assessment Noted Time PHQ-9 Depression Total Score: 0 01/11/20 23 3:21 PM EDT documented as of this encounter Care Teams Chip Tester Relationship Specialty Start Date End Date Gisselle Fuentes MD 505 [place] [address] PCP - General Internal Medicine 09/23/17 documented as of this encounter
--- OUTSIDE RECORDS SUMMARY | 2024-12-18 16:43 | XMS_ITS | Encounter Summary ---
Author Organization [employer] Address [address] [facility] [address] 7t [place] [address] Care Team Providers Care Helpdesk Manager Name Role Phone Gisselle Fuentes MD Primary Care Provider +1- [phone] Encounter Details Date Type Department Care Team ([facility] Contact Info) Description 07/23/2024 Orders Only [facility] MED & PEDS 505 [place], [place] [phone] Gisselle Fuentes MD 505 [place] [address] Severe obesity (BMI >= 40) (CMS/HCC) (Primary [...] PM EDT Office Visit [facility] MED & PEDS [address] [place] [address] Gisselle Fuentes MD [address] [place] [address] documented as of this encounter Visit Diagnoses Diagnosis Severe obesity (BMI >= 40) (CMS/HCC)- Primary documented in this encounter Additional Health Concerns Assessment Noted Time PHQ-9 Depression Total Score: 0 01/11/20 23 3:21 PM EDT documented as of this encounter Care Teams Helpdesk Manager Relationship Specialty Start Date End Date Gisselle Fuentes MD 505 [place] [address] PCP - General Internal Medicine 09/23/17 documented as of this encounter
--- OUTSIDE RECORDS SUMMARY | 2024-12-18 16:43 | XMS_ITS | Encounter Summary ---
Author Organization [facility] Address [address] [facility] [address]t [place] [address] Care Team Providers Care Car Wiper Name Role Phone Gisselle Fuentes MD Primary Care Provider [phone]- [phone] Reason for Visit * Reason Onset Date Comments Medication Question 07/23/2024 Encounter Details Date Type Department Care Team ([facility] st Contact Info) Description 07/23/2024 Telephone [facility] MEDICINE [address] [place] [address] Gisselle Fuentes MD [address] [place], [place] [phone] Medication Question Social History Tobacco Use Types [...] 12/31/2024 3:15 PM EDT Office Visit [facility] CHC MED & PEDS [address] [place] [address] Gisselle Fuentes MD [address] [place] [address] documented as of this encounter Visit Diagnoses Not on filedocumented in this encounter Additional Health Concerns Assessment Noted Time PHQ-9 Depression Total Score: 0 01/11/20 23 3:21 PM EDT documented as of this encounter Care Teams Car Wiper Relationship Specialty Start Date End Date Gisselle Fuentes MD [address] [place] [address] PCP - General Internal Medicine 09/23/17 documented as of this encounter
--- OUTSIDE RECORDS SUMMARY | 2024-12-18 16:43 | XMS_ITS | Clinical Summary ---
Author Organization [facility] Address [address] [facility] 7t [place] [address] Care Team Providers Care Accounting Auditor Name Role Phone Gisselle Fuentes MD Primary [...] DEPARTMENT Provider, Generic External Data 11/16/2024 Telephone [facility] MED & PEDS [address] [place] [address] Gisselle Fuentes MD Prior Authorization 11/15/2024 Telephone [facility] MED & PEDS [address] [place] [address] Gisselle Fuentes MD Med Refill 11/12/[address] [address] Gisselle Fuentse MD Med Refill 10/03/2024 Orders Only [facility] MED & PEDS [address] [place] [address] Gisselle Fuentes MD 10/02/2024 Refill [facility] MED & PEDS [address] [place] [address] Gisselle Fuentes MD Severe obesity (BMI >= 40) ([facility]) 10/01/2024 3:30 PM EST Office Visit [facility] MED & PEDS [address] [place] [address] Gisselle Fuentes MD Severe obesity (BMI >= 40) ([facility]) (Primary Dx); Dietary counseling; Exercise counseling; Class 3 severe obesity due to excess calories with serious comorbidity and body mass index (BMI) of 40.0 to 44.9 in adult ([facility]) 10/01/2024 Refill [facility] MED & PEDS [address] [place] [address] Gisselle Fuentes MD Severe obesity (BMI >= 40) ([facility]) 10/01/2024 Travel 09/27/2024 Telephone [facility] MED & PEDS [address] [place] [address] Gisselle Fuentes MD chart prep from Last [...] ([facility] st Contact Info) Description 12/31/2024 3:15 PM EDT Office Visit [facility] CH[facility] MED & PEDS [address] [place] [address] Gisselle Fuentes MD [address] [place] [address] Health Maintenance Due Date Last Done Comments [...] Blood Count 8.5 4.8 - 10.8 X10*3/uL [facility] Red Blood Count 4.93 4.60 - 5.80 X10*6/uL [facility] Hemoglobin 14.9 14.0 - 18.0 g/dl [facility] Hematocrit 43.5 42.0 - 52.0 % [facility] Mean Corpuscular Volume 88.2 80.0 - 98.0 fL [facility] Mean Corpuscular Hemoglobin 30.2 27.0 - 33.0 pg [facility] Mean Corpuscular HGB Conc 34.3 31.0 - 36.0 g/dl [facility] Red Cell Distribution Width 11.9 11.0 - 16.0 % [facility] Platelet Count 245 160 - 400 X10*3/uL [facility] Mean Platelet Volume 11.6 9.4 - 12.4 fL [facility] NRBC Pct Auto 0.0 0.0 - 0.2 /100WBC [facility] NRBC Abs Auto 0.000 0.0 - 0.012 X10*3/uL [facility] 12/10/2024 11:5 3 AM EDT 12/10/2024 11:53 AM EDT us Generic External Data Provider LAB BLOOD ORDERAB LES Final Result [facility] [address] [place] [address] [phone] * (ABNORMAL) Testosterone, Free (Dialysis) And Total, MS (12/10/2024 11:53 AM EDT) Testosterone, Total 185(A) 250 - 1100 ng/dL [facility] Comment:Men with clinically significant hypogonadal symptoms and testosterone valuesrepeatedly in the range of the 200-300 ng/dL or less, may benefit fromtestosterone treatment after adequate risk and benefits counseling.For additional information, please refer tohttps://education.[employer]/faq/GNY211(This link is being provided for informational/educational purposes only.)(Note)This test was developed and its analytical performancecharacteristics have been determined by [employer]. It hasnot been cleared or approved by the FDA. This assay hasbeen validated pursuant to the CLIA regulations and isused for clinical purposes. Testosterone, Free 40.5 35.0 - 155.0 pg/mL [facility] Comment:(Note)This test was developed and its analytical performancecharacteristics have been determined by [employer]. It hasnot been cleared or approved by the FDA. This assay hasbeen validated pursuant to the CLIA regulations and isused for clinical purposes.MDFmed [id number] [address],[address] [place] [address] [phone] Leonard Watts MD, PhDTHIS TEST WAS PERFORMED AT:[id number] [place] [phone] WATTS MD,PHD 12/10/2024 11:5 3 AM EDT 12/10/2024 11:53 AM EDT Generic External Data Provider LAB BLOOD ORDERAB LES Final Result Performing Organization Address [place]/ZIP Co de Phone Number [facility] [address] [place] [phone] * PSA,Total (12/10/2024 11:53 AM EDT) Prostate Specific Antigen 0.36 <0.05 - 4.0 ng/mL [facility] Comment:PSA methodology: Abb frances Alinity i ChemiluminescentMicroparticle Immunoassay (CMIA) 12/10/2024 11:5 3 AM EDT 12/10/2024 11:53 AM EDT Generic External Data Provider LAB BLOOD ORDERAB LES Final Result Performing Organization Address [facility] Co de Phone Number [facility] [address] [place] [phone] * Cancelled Chemistry (11/30/2024 11:58 AM EDT) Cancelled Chemistry SEE NOTE [facility] Comment:THE FOLLOWING TESTS WERE CANCELLED: TESTOSTERONE FR + TOTREASON: NO SPECIMEN COLLECTED/RECEIVED 11/30/2024 11:5 8 AM EDT 11/30/2024 11:59 AM EDT us Generic External Data Provider HISTORICAL/NON OR DERABLE LABS Final Result Performing Organization Address [facility]/ZIP Co de Phone Number [facility] [address] [place] [phone] * (ABNORMAL) Lipid Panel, Standard (01/09/2024 8:46 AM EDT) Triglycerides 83 <150 mg/dL [facility] Comment:Desirable Triglyceri de: less than 150 mg/dLBorderline High Triglyceride 150-199 mg/dLHigh Triglyceride: 200-499 mg/dLVery High Triglyceride: greater than or equal to 5OO mg/dL Cholesterol 141 <200 mg/dL [facility] Comment:Desirable Cholestero l: less than 200 mg/dLBorderline High Cholesterol: 200-239 mg/dLHigh Cholesterol: greater than 239 mg/dL LDL Cholesterol Calculated 90 <100 mg/dL [facility] Comment:Desirable LDL: less than 100 mg/dLNear Optimal/Above Optimal LDL: 110- 129 mg/dLBorderline High LDL: 130-159 mg/dLHigh LDL: 160-189 mg/dLVery High LDL: greater than or equal to 190 mg/dL HDL Cholesterol 35(L) >40 mg/dL [facility] Comment:Desirable HDL: great er than 40 mg/dL Note: This HDL assay may give artificially low results in patients with liver disease. Blood Venous blood specimen / Unknown 01/09/2024 8:46 AM EDT 01/09/2024 2:27 PM EDT us Gisselle Fuentes MD LAB BLOOD ORDERABLES Final Result Performing Organization Address [facility]/ZIP Co de Phone Number [facility] [address] [place] [phone] * HEPATITIS C AB W/REFL TO HCV RNA, QN, PCR (09/21/2021 11:50 AM EST) HEPATITIS C ANTIBODY NON-REACT ESMER NON-REACT ESMER [facility] INDEX 0.12 <1.00 [facility] Comment: ?? HCV antibody was non-reactive. There is no laboratory ?? evidence of HCV infection. ?? In most cases, no further action is required. However, if recent HCV exposure is suspected, a test for HCV RNA (test code 20911) is suggested. ?? For additional information please refer to http://[employer]/faq/PKV23n5 (This link is being provided for informational/ educational purposes only.) ?? 09/21/2021 11:5 0 AM EST Gisselle Fuentes MD HISTORICAL/NON ORDERABLE LA BS Final Result [facility] [address] * HIV 1/2 ANTIGEN/ANTIBODY,FOURTH GENERATION W/RFL (09/21/2021 11:50 AM EST) HIV-1/2 ANTIGEN AND ANTIBODIES, 4TH GENERATION W/ REFLEX NON-REACT ESMER NON-REACT ESMER [facility] Comment: HIV-1 antigen and HIV-1/HIV-2 [...] ? For additional information please refer to http://[employer]/faq/XTH602 (This link is being provided for informational/ educational purposes only.) ? The performance of this assay has not been clinically validated in patients less than 2 years old. ?? 09/21/2021 11:5 0 AM EST us Gisselle Fuentes MD LAB BLOOD ORDERABLES Final Result [facility] [address] from Last 3 Months or Most Recently Relevant to Health Maintenance Insurance [facility] Care Teams Accounting Auditor Relationship Specialty Start Date End Date Gisselle Fuentes MD [address] [place] [phone] PCP - General Internal Medicine 09/23/17
--- OUTSIDE RECORDS SUMMARY | 2024-12-18 16:43 | XMS_ITS | Encounter Summary ---
Author Organization [facility] Address 75 [facility] 7 [place] [address] Care Team Providers Care Cardiograph Operator Name Role Phone Gisselle Fuentes MD Primary Care Provider [phone]- [phone] Reason for Visit * Reason Comments Med Change Request Encounter Details Date Type Department Care Team ([facility] Contact Info) Description 10/02/2024 Refill [facility] CH[facility] MED & PEDS [address] [place], [place] [phone] Gisselle Fuentes MD [address] [place], [place] [phone] Severe obesity (BMI >= 40) (CMS/HCC) Social [...] and med not available. Please return call [phone] documented in this encounter Plan of Treatment Upcoming Encounters Date Type Department Care Team (Late st Contact Info) Description 12/31/2024 3:15 PM EDT Office Visit [facility] MED & PEDS [address] [place] [address] Gisselle Fuentes MD [address] [place] [address] documented as of this encounter Visit Diagnoses Diagnosis Severe obesity (BMI >= 40) (CMS/HCC) documented in this encounter Additional Health Concerns Assessment Noted Time PHQ-9 Depression Total Score: 5 10/01/19 25 4:13 PM EST documented as of this encounter Care Teams Cardiograph Operator Relationship Specialty Start Date End Date Gisselle Fuentes MD [address] [place] [address] PCP - General Internal Medicine 09/23/17 documented as of this encounter
--- OUTSIDE RECORDS SUMMARY | 2024-12-18 16:44 | XMS_ITS | Encounter Summary ---
Author Organization [facility] [facility] Address 75 [facility] 7t [place] [address] Care Team Providers Care Patient Access Specialist Name Role Phone Gisselle Fuentes MD Primary Care Provider Reason for Visit * Reason Onset Date Comments Prior Authorization 06/26/2024 Medication Question 06/26/2024 Encounter Details Date Type Department Care Team ([facility] st Contact Info) Description 06/26/2024 Telephone [facility] MEDICINE [address] [place] [address] Gisselle Fuentes MD [address] [place], [place] [phone] Prior Authorization; Medication Question Social History Tobacco [...] Description 12/31/2024 3:15 PM EDT Office Visit [facility] MED & PEDS [address] [place] [address] Gisselle Fuentes MD [address] [place] [address] documented as of this encounter Visit Diagnoses Not on filedocumented in this encounter Additional Health Concerns Assessment Noted Time PHQ-9 Depression Total Score: 0 01/11/20 23 3:21 PM EDT documented as of this encounter Care Teams Patient Access Specialist Relationship Specialty Start Date End Date Gisselle Fuentes MD [address] [place] [address] PCP - General Internal Medicine 09/23/17 documented as of this encounter
--- OUTSIDE RECORDS SUMMARY | 2024-12-18 16:44 | XMS_ITS | Encounter Summary ---
Author Organization [facility] Address [address] [facility] [address] 7[address] [place] [address] Care Team Providers Care Gripper Machine Operator Name Role Phone Gisselle Fuentes MD Primary Care Provider [phone]- [phone] Encounter Details Date Type Department Care Team ([facility] st Contact Info) Description 05/15/2024 Orders Only [facility] MED & PEDS [address] [place], [place] [phone] Gisselle Fuentes MD [address] [place] [address] Severe obesity (BMI >= 40) (CMS/HCC) (Primary [...] [facility] MED [facility] PED[facility] [address] [place] [address] Gisselle Fuentes MD [address] [place] [address] documented as of this encounter Visit Diagnoses Diagnosis Severe obesity (BMI >= 40) (CMS/HCC)- Primary documented in this encounter Additional Health Concerns Assessment Noted Time PHQ-9 Depression Total Score: 0 01/11/20 23 3:21 PM EDT documented as of this encounter Care Teams Gripper Machine Operator Relationship Specialty Start Date End Date Gisselle Fuentes MD [address] [place] [address] PCP - General Internal Medicine 09/23/17 documented as of this encounter
[2024-12-19 09:48] LABS: Lutenizing Hormone 2.8 mIU/mL (1.5-9.3)
== END 2024-12-18 13:19 | disposition home or self-care (01) ==
LOC: HO.LAB 13:18
PROVIDERS: PCP Internal Medicine; Visit Provider Nurse Practitioner Family
DX: E29.1 Testicular hypofunction (principal); Z13.9 Encounter for screening, unspecified
CPT/HCPCS: 36415; 81003; 83002; 99212

== ENCOUNTER 2025-03-14 06:54 | Outpatient (REF) | payer OTHER, SELFPAY ==
--- OUTSIDE RECORDS SUMMARY | 2025-03-14 06:57 | XMS_ITS | Clinical Summary ---
Author Organization [address] [facility] Address [address] [place] [address] Phone Care Team Providers Care Parcel Post Weigher Name Role Phone Gisselle Fuentes MD Primary Care Provider [phone] -[phone] Social History Tobacco Use Types Packs/Day Years [...] series) 2002 Cholesterol Screening (Lipid Panel) 07/25/2022 HIV Screening 07/25/2022 Hepatitis C Screening 07/25/2022 Social Influencers of Health Screening 07/25/2022 COVID-19 Vaccine ( - 2023-2 5 season) 2024 Depression Screening 08/22/2024 Influenza Vaccine (#1) 2025 HIB Vaccines Aged Out No longer [...] 5 Years) and At-Risk Patients (6 to 49 Years) Aged Out No longer eligible b ased on patient's age to complete this topic RSV Immunization Patients Un carol 20 months Aged Out No longer eligible b ased on patient's age to complete this topic Varicella Vaccines Aged Out No longer eligible based on patient's age to complete this topic Insurance MEDICAID - [place] Care Teams Parcel Post Weigher Relationship Specialty Start Date End Date Gisselle Fuentes MD [address] [place] [address] PCP - General 05/26/22
[2025-03-15 08:28] LABS: Follicle Stimulating Hormone 10.0 mIU/mL (1.4-12.8)
[2025-03-20 15:13] LABS: Testosterone, Free 53.6 pg/mL (35.0-155.0)
== END 2025-03-14 06:55 | disposition home or self-care (01) ==
LOC: HO.LAB 06:54
PROVIDERS: PCP Internal Medicine; Visit Provider Nurse Practitioner Family
DX: E11.69 Type 2 diabetes mellitus with other specified complication (principal); E29.1 Testicular hypofunction; N52.1 Erectile dysfunction due to diseases classified elsewhere
CPT/HCPCS: 36415; 83001; 83002; 84146; 84270; 84402; 84403

== ENCOUNTER 2025-05-02 15:18 | Outpatient (AMB) | payer OTHER, SELFPAY ==
--- NOTE | 2025-05-02 15:28 | MHC.OFFVIS ---
Intake Visit Reasons: 3m/labs Intake Note: Patient is present for 3M/LABS Urology Medication:TESTOSTERONE Antibiotic Allergy:NONE Blood Thinner:NONE Pie Dough Roller Required: No Pie Dough Roller Services: Pie Dough Roller Present Pie Dough Roller Name: Chiki Cloud Allergies No Known Allergies Allergy (Verified 05/02/25 17:39) Medication List - Last Reconciled 05/02/25 by LAKHWINDER Lares-NIMESH levothyroxine 25 mcg PO DAILY methocarbamol 750 mg PO Q6H tadalafil 20 mg PO ONCE PRN 30 days tizanidine 4 mg PO Q6-8H PRN HPI Comments Details: Tawanda is a 39-year-old [place] Islander-speaking male patient of Dr. Fuentes. He has a past medical history of back pain, obesity, hypothyroidism, and sleep apnea. He presents to the office today for follow-up of his hypogonadism and erectile dysfunction. In discussion with the patient today he reports having stopped testosterone replace as discussed during last office visit as patient has now decided he would like to undergo infertility workup. Recent labs were reviewed with the patient today as noted and trended below: PSA 03/14 0.2, 08/14 0.4, 12/14 0.4 Testosterone 03/14 144, 08/14 228, 12/14 185, 03/15 254 Free testosterone 03/14 35.3, 08/14 45.4, 40.5, 03/15 53.6 H/H 03/14 14.8/44.4, 08/14 15.9/46.3, 12/14 14.9/43.5 LH: 03/15 5.6 Prolactin: 03/15 9.9 SHB/25 19 He continues to report issues with premature ejaculation when having intercourse with his however during masturbation does not feel he has any ED and or premature ejaculation. He discusses at length his previous history of anabolic steroid use when he was 16 years old. He also discusses undergoing a varicocelectomy and circumcision in [place] many years ago and feels since these procedures he has noted issues with premature ejaculation. We discussed potential causes of premature ejaculation as well as further treatment options and risks and benefits of these treatment options. He also reports having had a previous infertility workup in [place] and being told he had decreased mobility to sperm. He reports initially he was not enquiring infertility workup as his had been newly diagnosed with lupus however he reports in discussion with his he would like to undergo further infertility workup. We discussed contraindication to testosterone replacement. We discussed testosterone replacement verses testosterone recovery with clomid and or HCG. We discussed obtaining fellows kit for further assessment and evaluation. He continues to follow-up with his PCP regarding weight management. He reports being on Wegovy and has lost over 40 lb in the last year intentionally. He otherwise denies any issues with his urination. He denies urinary urgency, urinary frequency, incontinence, nocturia, hematuria, dysuria, foul smelling urine, changes to urinary stream, flank pain, fever, and or chills. Previous office note information: Erectile dysfunction: He presents today for further evaluation of ejaculatory disorder. Symptoms have been present for/since Several months. Current treatment includes none. Has used tadalafil in the past At this time he experiences erections are partial and adequate for vaginal penetration, that last until ejaculation. Currently they are in a stable relationship. 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 Review of Systems Const All systems reviewed & are unremarkable except as noted in HPI and below Eyes Reports no additional complaints ENT Reports no additional complaints Card Reports no additional complaints Resp Reports as per HPI GI Reports no additional complaints Reports as per HPI Musc Reports as per HPI Neuro Reports no additional complaints Psych Reports no additional complaints Endo Reports as per HPI Ronaldo/Lymph Reports no additional complaints Aller/Immun Reports no additional complaints Physical Exam Const General: cooperative, healthy appearing, comfortable, no acute distress, well developed, alert and awake Nutritional Appearance: overweight Orientation/consciousness: patient oriented x3 Limitations: language barrier HEENT Head: Yes normal to inspection, Yes normocephalic and Yes atraumatic Ears: hearing grossly normal bilaterally Eyes General: appearance normal, both eyes and all related structures Neck Neck: Yes normal visual inspection and Yes trachea midline Chest Chest palpation & inspection: normal inspection of the chest Resp Effort & Inspection: normal respiratory effort and able to speak in complete sentences Cardio Rate: regular rate GI Inspection: Yes normal to inspection General: Yes no CVA tenderness Back/Spine/Pelvis Back: no CVA tenderness Skin General skin exam: no rashes or lesions noted Neuro General: patient oriented x3 Extrem General: Yes normal to inspection Psych Appearance: grossly normal and well kempt Mental Status: mental status grossly normal Speech and movement: Normal speech and movement present and Clear speech present Affect: normal affect Attitude: cooperative Thought process: Normal thought process present Thought content: Normal thought content present Insight: Fair insight present (Psych) Judgement: Fair judgement present (Psych) Results AMB Urinalysis, Automated UA Leukoctes 0 Stephany/uL Last Edit by IRA Banuelos on 05/02/25 16:49 UA Nitrite Negative Last Edit by Shana Vargas CCM on 05/02/25 16:49 UA Urobilinogen 3.5 mg/dL Last Edit by IRA Banuelos on 05/02/25 16:49 UA Protein 0 mg/dL Last Edit by Shana Vargas CCM on 05/02/25 16:49 UA pH 6.0 Last Edit by Shana Vargas CCM on 05/02/25 16:49 UA Blood 0 Cj/uL Last Edit by Shana Vargas CCM on 05/02/25 16:49 UA Specific [place] 1.025 Last Edit by Shana Vargas CCM on 05/02/25 16:49 UA Ketone Negative Last Edit by IRA Banuelos on 05/02/25 16:49 UA Bilirubin 0 mg/dL Last Edit by Shana Vargas CCM on 05/02/25 16:49 UA Glucose 0 mg/dL Last Edit by Shana Vargas CCM on 05/02/25 16:49 Results Reviewed Results Reviewed: Laboratory Last Values Urine pH (Auto) 6.0 05/02/25 16:34 Specific [place] (Auto) 1.025 05/02/25 16:34 Urine Protein (Auto) 0 mg/dL 05/02/25 16:34 Glucose (UA)(Auto) 0 mg/dL 05/02/25 16:34 Urine Ketones (Auto) Negative 05/02/25 16:34 Urine Blood (Auto) 0 Cj/uL 05/02/25 16:34 Urine Nitrite (Auto) Negative 05/02/25 16:34 Urine Bilirubin (Auto) 0 mg/dL 05/02/25 16:34 Urine Urobilinogen (Auto) 3.5 mg/dL 05/02/25 16:34 Leukocyte Esterase (Auto) 0 Stephany/uL 05/02/25 16:34 Assessment & Plan Assessment & Plan (1) Premature ejaculation: Code(s): F52.4 - Premature ejaculation Category: Medical (2) Hypogonadism in male: Code(s): E29.1 - Testicular hypofunction Category: Medical Plan We discussed contraindication to testosterone replacement and desires/fertility. Will obtain semen analysis via fellows kit for further assessment evaluation. We discussed testosterone replacement verses testosterone recovery We discussed potential causes of premature ejaculation as well as further treatment options risks were reviewed so these treatment options. He currently denies any bothersome urinary issues or concerns. He reports be happy with current voiding parameters. We discussed importance of lifestyle modifications to assist with overall health and well-being as well as urological conditions. Follow-up with Dr. Tejeda with semen analysis to be completed prior; or sooner with any issues, concerns, and or questions. Orders: Orders AMB Urinalysis Automated Today Z13.9 - Encounter for screening, unspecified Patient Instructions: The patient had an opportunity to ask questions regarding the treatment plan. All questions were answered. Physical exam, labs, and imaging were discussed and reviewed in detail. As well as risks, benefits, and discussion of treatment choices. No major barriers to understanding were identified. The patient expressed understanding and agreement with the above treatment plan. The patient was made aware they should contact our office by phone for worsening of their current condition, the appearance of new symptoms, or with any questions or concerns. Compliance is encouraged with any medications and follow up testing that is ordered. It is a privilege to be allowed the opportunity to participate in? your urological care.? Again, if you have any questions or concerns If you have any questions or concerns please do not hesitate to contact me. The office is [phone]. This note is constructed using voice recognition software. While every effort has been made to ensure accuracy casualty underwriter errors may have been included. Yours sincerely, TU Lares Coding Level of Care Code Est Pt Level 3 (31446) Diagnoses Premature ejaculation F52.4 Hypogonadism in male E29.1
--- OUTSIDE RECORDS SUMMARY | 2025-05-02 18:36 | XMS_ITS | Encounter Summary ---
Author Organization [employer] Address [address] [facility] 7t [place] [address] Care Team Providers Care Adoption Specialist Name Role Phone Gisselle Fuentes MD Primary Care Provider +1- [phone] Encounter Details Date Type Department Care Team ([facility] Contact Info) Description 07/23/2024 Orders Only [facility] CHC MED & PEDS [address] [place], [place] [phone] Gisselle Fuentes MD 505 [place], [place] [phone] Severe obesity (BMI >= 40) (CMS/HCC) (Primary [...] Care Team (Late st Contact Info) Description 06/04/2025 3:15 PM EDT Office Visit [facility] CHC MED & PEDS [address] [place] [address] Gisselle Fuentes MD 505 [place] [address] 08/13/2025 2:00 PM EST Office Visit [facility] OPTOMETRY [address] [place] [address] Clinton, Susie, OD [address] [place] [address] documented as of this encounter Visit Diagnoses Diagnosis Severe obesity (BMI >= 40) (CMS/HCC)- Primary documented in this encounter Additional Health Concerns Assessment Noted Time PHQ-9 Depression Total Score: 0 01/11/20 23 3:21 PM EDT documented as of this encounter Care Teams Adoption Specialist Relationship Specialty Start Date End Date Gisselle Fuentes MD 505 [place] [address] PCP - General Internal Medicine 09/23/17 documented as of this encounter
--- OUTSIDE RECORDS SUMMARY | 2025-05-02 18:36 | XMS_ITS | Encounter Summary ---
Author Organization [employer] Address 75 [facility] 7 [place] [address] Care Team Providers Care Conservation Enforcement Officer Name Role Phone Gisselle Fuentes MD Primary Care Provider +1- [phone] Reason for Visit * Reason Comments Med Change Request Encounter Details Date Type Department Care Team ([facility] Contact Info) Description 10/02/2024 Refill [facility] CHC MED & PEDS 505 [place], [place] [phone] Gisselle Fuentes MD [address] [place], [place] [phone] Severe obesity (BMI >= 40) (CMS/HCC) Social [...] and med not available. Please return call [phone] documented in this encounter Plan of Treatment Upcoming Encounters Date Type Department Care Team (Late st Contact Info) Description 06/04/2025 3:15 PM EDT Office Visit [facility] CHC MED & PEDS 505 [place] [address] Gisselle Fuentes MD [address] [place] [address] 08/13/2025 2:00 PM EST Office Visit [facility] OPTOMETRY [address] [place] [address] Susie Alonzo, OD [address] [place] [address] documented as of this encounter Visit Diagnoses Diagnosis Severe obesity (BMI >= 40) (CMS/HCC) documented in this encounter Additional Health Concerns Assessment Noted Time PHQ-9 Depression Total Score: 5 10/01/19 25 4:13 PM EST documented as of this encounter Care Teams Conservation Enforcement Officer Relationship Specialty Start Date End Date Gisselle Fuentes MD [address] [place] [address] PCP - General Internal Medicine 09/23/17 documented as of this encounter
--- OUTSIDE RECORDS SUMMARY | 2025-05-02 18:36 | XMS_ITS | Encounter Summary ---
Author Organization [employer] Address [address] [facility] 7 [place] [address] Care Team Providers Care Sox Analyst Name Role Phone Gisselle Fuentes MD Primary Care Provider +- [phone] Reason for Visit * Reason Comments Med Change Request Encounter Details Date Type Department Care Team ([facility] Contact Info) Description 04/24/2024 Refill [facility] CHC MED & PEDS 505 [place], [place] [phone] Gisselle Fuentes MD [address] [place], [place] [phone] Severe obesity (BMI >= 40) (CMS/HCC) Social [...] Description 06/04/2025 3:15 PM EDT Office Visit [facility] CHC MED & PEDS 505 [place] [address] Gisselle Fuentes MD [address] [place], [place] [phone] 08/13/2025 2:00 PM EST Office Visit [facility] OPTOMETRY [address] [place] [address] Clinton, Susie, OD [address] [place] [address] documented as of this encounter Visit Diagnoses Diagnosis Severe obesity (BMI >= 40) (CMS/HCC) documented in this encounter Additional Health Concerns Assessment Noted Time PHQ-9 Depression Total Score: 0 01/11/20 23 3:21 PM EDT documented as of this encounter Care Teams Sox Analyst Relationship Specialty Start Date End Date Gisselle Fuentes MD [address] [place] [address] PCP - General Internal Medicine 09/23/17 documented as of this encounter
--- OUTSIDE RECORDS SUMMARY | 2025-05-02 18:36 | XMS_ITS | Encounter Summary ---
Author Organization [employer] Address [address] [facility] 7t [place] [address] Care Team Providers Care Insurance Agents Supervisor Name Role Phone Gisselle Fuentes MD Primary Care Provider +1- [phone] Encounter Details Date Type Department Care Team ([facility] st Contact Info) Description 04/24/2024 Orders Only [facility] MED & PEDS 505 [place], [place] [phone] Gisselle Fuentes MD 505 [place], [place] [phone] Severe obesity (BMI >= 40) (CMS/HCC) (Primary [...] Description 06/04/2025 3:15 PM EDT Office Visit [facility] CHC MED & PEDS 505 [place] [address] Gisselle Fuentes MD 505 [place] [address] 08/13/2025 2:00 PM EST Office Visit [facility] OPTOMETRY [address] [place] [address] Clinton, Susie, OD [address] [place] [address] documented as of this encounter Visit Diagnoses Diagnosis Severe obesity (BMI >= 40) (CMS/HCC)- Primary documented in this encounter Additional Health Concerns Assessment Noted Time PHQ-9 Depression Total Score: 0 01/11/20 23 3:21 PM EDT documented as of this encounter Care Teams Insurance Agents Supervisor Relationship Specialty Start Date End Date Gisselle Fuentes MD 505 [place] [address] PCP - General Internal Medicine 09/23/17 documented as of this encounter
--- OUTSIDE RECORDS SUMMARY | 2025-05-02 18:36 | XMS_ITS | Encounter Summary ---
Author Organization [employer] Address [address] [facility] 7t [place] [address] Care Team Providers Care Power Equipment Mechanics Instructor Name Role Phone Gisselle Fuentes MD Primary Care Provider +1- [phone] Encounter Details Date Type Department Care Team ([facility] st Contact Info) Description 05/15/2024 Orders Only [facility] MED & PEDS 505 [place], [place] [phone] Gisselle Fuentes MD 505 [place], [place] [phone] Severe obesity (BMI >= 40) (CMS/HCC) (Primary [...] Description 06/04/2025 3:15 PM EDT Office Visit [facility] CHC MED & PEDS [address] [place] [address] Gisselle Fuentes MD 505 [place] [address] 08/13/2025 2:00 PM EST Office Visit [facility] OPTOMETRY [address] [place] [address] Clinton, Susie, OD [address] [place] [address] documented as of this encounter Visit Diagnoses Diagnosis Severe obesity (BMI >= 40) (CMS/HCC)- Primary documented in this encounter Additional Health Concerns Assessment Noted Time PHQ-9 Depression Total Score: 0 01/11/20 23 3:21 PM EDT documented as of this encounter Care Teams Power Equipment Mechanics Instructor Relationship Specialty Start Date End Date Gisselle Fuentes MD 505 [place] [address] PCP - General Internal Medicine 09/23/17 documented as of this encounter
--- OUTSIDE RECORDS SUMMARY | 2025-05-02 18:36 | XMS_ITS | Encounter Summary ---
Author Organization [employer] Address [address] [facility] 7t [place] [address] Care Team Providers Care Chopper Operator Name Role Phone Gisselle Fuentes MD Primary Care Provider +1- [phone] Encounter Details Date Type Department Care Team ([facility] st Contact Info) Description 03/06/2025 Orders Only [facility] CHC MED & PEDS [address] [place], [place] [phone] Gisselle Fuentes MD 505 [place], [place] [phone] Severe obesity (BMI >= 40) (CMS/HCC) (Primary [...] Recorded Patient Health Questionnaire-2 Score 1 10/01/2024 Internet Access Answer Date Recorded Internet Access Q1 Yes 12/24/2024 Internet Access Q2 Not on file 12/24/2024 Sex and Gender Information Value Date Recorded Sex Assigned at Male 06/21/2022 10:33 AM EDT Legal Sex Male 10:33 AM EDT Gender Identity Male 06/21/2022 10:33 AM EDT Sexual Orientation Straight 06/21/2022 10 :33 AM EDT documented as of this encounter Plan of Treatment Upcoming Encounters Date Type Department Care Team (Late st Contact Info) Description 06/04/2025 3:15 PM EDT Office Visit [facility] CHC MED & PEDS [address] [place] [address] Gisselle Fuentes MD 505 [place] [address] 08/13/2025 2:00 PM EST Office Visit [facility] OPTOMETRY [address] [place] [address] Clinton, Susie, OD [address] [place] [address] documented as of this encounter Visit Diagnoses Diagnosis Severe obesity (BMI >= 40) (CMS/HCC)- Primary documented in this encounter Additional Health Concerns Assessment Noted Time PHQ-9 Depression Total Score: 5 10/01/19 25 4:13 PM EST documented as of this encounter Care Teams Chopper Operator Relationship Specialty Start Date End Date Gisselle Fuentes MD 505 [place] [address] PCP - General Internal Medicine 09/23/17 documented as of this encounter
--- OUTSIDE RECORDS SUMMARY | 2025-05-02 18:36 | XMS_ITS | Encounter Summary ---
Author Organization [employer] Address [address] [facility] 7t [place] [address] Care Team Providers Care Workforce Manager Name Role Phone Gisselle Fuentes MD Primary Care Provider [phone]- [phone] Encounter Details Date Type Department Care Team ([facility] st Contact Info) Description 10/03/2024 Orders Only [facility] MED & PEDS 505 [place], [place] [phone] Gisselle Fuentes MD [address] [place] [address] Social History Tobacco Use Types Packs/Day Years [...] Description 06/04/2025 3:15 PM EDT Office Visit [facility] CHC MED & PEDS [address] [place] [address] Gisselle Fuentes MD [address] [place] [address] 08/13/2025 2:00 PM EST Office Visit [facility] OPTOMETRY [address] [place] [address] Clinton, Susie, OD [address] [place] [address] documented as of this encounter Visit Diagnoses Not on filedocumented in this encounter Additional Health Concerns Assessment Noted Time PHQ-9 Depression Total Score: 5 10/01/19 25 4:13 PM EST documented as of this encounter Care Teams Workforce Manager Relationship Specialty Start Date End Date Gisselle Fuentes MD [address] [place] [address] PCP - General Internal Medicine 09/23/17 documented as of this encounter
--- OUTSIDE RECORDS SUMMARY | 2025-05-02 18:36 | XMS_ITS | Encounter Summary ---
Author Organization [employer] Address [address] [facility] 7t [place] [address] Care Team Providers Care Bench Repair Technician Name Role Phone Gisselle Fuentes MD Primary Care Provider +1- [phone] Encounter Details Date Type Department Care Team (Late st Contact Info) Description 04/05/2025 Orders Only [facility] [address] [place] [address] Provider, MD Lianet Social History Tobacco Use [...] Description 06/04/2025 3:15 PM EDT Office Visit [facility] CHC MED & PEDS 505 [place], [place] [phone] Gisselle Fuentes MD 505 [place], [place] [phone] 08/13/2025 2:00 PM EST Office Visit [facility] OPTOMETRY [address] [place] [address] Clinton, Susie, OD [address] [place] [address] documented as of this encounter Procedures Procedure Name Priority Date/Time Associated Diagnosis Comments ECG 12-LEAD Routine 04/04/2025 9:24 AM EDT documented in this encounter Results * ECG 12 lead (04/04/2025 9:24 AM EDT) us Historical Provider ECG ORDERABLES Final Res ult documented in this encounter Visit Diagnoses Not on filedocumented in this encounter Additional Health Concerns Assessment Noted Time PHQ-9 Depression Total Score: 5 10/01/19 25 4:13 PM EST documented as of this encounter Care Teams Bench Repair Technician Relationship Specialty Start Date End Date Gisselle Fuentes MD [address] [place], [place] [phone] PCP - General Internal Medicine 09/23/17 documented as of this encounter
--- OUTSIDE RECORDS SUMMARY | 2025-05-02 18:36 | XMS_ITS | Encounter Summary ---
Author Organization [employer] Address [address] [facility] [address]t [place] [address] Care Team Providers Care Photovoltaic Panel Installer Name Role Phone Gisselle Fuentes MD Primary Care Provider [phone] Encounter Details Date Type Department Care Team (Late st Contact Info) Description 01/18/2024 Orders Only [facility] [address] [place] [address] Provider, MD Lianet Social History Tobacco Use [...] 3:15 PM EDT Office Visit [facility] CHC MED & PEDS [address] [place], [place] [phone] Gisselle Fuentes MD [address] [place], [place] [phone] 08/13/2025 2:00 PM EST Office Visit [facility] OPTOMETRY [address] [place] [address] Clinton, Susie, OD [address] [place] [address] documented as of this encounter Procedures Procedure [...] documented as of this encounter Care Teams Photovoltaic Panel Installer Relationship Specialty Start Date End Date Gisselle Fuentes MD [address] [place], [place] [phone] PCP - General Internal Medicine 09/23/17 documented as of this encounter
--- OUTSIDE RECORDS SUMMARY | 2025-05-02 18:36 | XMS_ITS | Encounter Summary ---
Author Organization [employer] Address [address] [facility] 7 [place] [address] Care Team Providers Care Apartment Community Assistant Manager Name Role Phone Gisselle Fuentes MD Primary Care Provider +[phone]- [phone] Reason for Visit * Reason Onset Date Comments Prior Authorization 06/26/2024 Medication Question 06/26/2024 Encounter Details Date Type Department Care Team ([facility] st Contact Info) Description 06/26/2024 Telephone [facility] MEDICINE [address] [place] [address] Gisselle Fuentes MD 505 [place], [place] [phone] Prior Authorization; Medication Question Social History Tobacco [...] Description 06/04/2025 3:15 PM EDT Office Visit [facility] MED & PEDS 505 [place] [address] Gisselle Fuentes MD 505 [place], [place] [phone] 08/13/2025 2:00 PM EST Office Visit [facility] OPTOMETRY [address] [place] [address] Clinton, Susie, OD [address] [place], [place] [phone] documented as of this encounter Visit Diagnoses Not on filedocumented in this encounter Additional Health Concerns Assessment Noted Time PHQ-9 Depression Total Score: 0 01/11/20 23 3:21 PM EDT documented as of this encounter Care Teams Apartment Community Assistant Manager Relationship Specialty Start Date End Date Gisselle Fuentes MD 505 [place] [address] PCP - General Internal Medicine 09/23/17 documented as of this encounter
--- OUTSIDE RECORDS SUMMARY | 2025-05-02 18:36 | XMS_ITS | Encounter Summary ---
Author Organization [employer] Address 75 [facility] 7t [place] [address] Care Team Providers Care Lead Cook Name Role Phone Gisselle Fuentes MD Primary Care Provider +1- [phone] Encounter Details Date Type Department Care Team ([facility] st Contact Info) Description 02/04/2025 Orders Only [facility] MED & PEDS 505 [place], [place] [phone] Gisselle Fuentes MD [address] [place] [address] Social History Tobacco Use Types Packs/Day Years [...] 3:15 PM EDT Office Visit [facility] CHC MED & PEDS [address] [place] [address] Gisselle Fuentes MD [address] [place] [address] 08/13/2025 2:00 PM EST Office Visit [facility] OPTOMETRY [address] [place] [address] Clinton, Susie, OD [address] [place] [address] documented as of this encounter Visit Diagnoses Not on filedocumented in this encounter Additional Health Concerns Assessment Noted Time PHQ-9 Depression Total Score: 5 10/01/19 25 4:13 PM EST documented as of this encounter Care Teams Lead Cook Relationship Specialty Start Date End Date Gisselle Fuentes MD [address] [place] [address] PCP - General Internal Medicine 09/23/17 documented as of this encounter
--- OUTSIDE RECORDS SUMMARY | 2025-05-02 18:36 | XMS_ITS | Clinical Summary ---
Author Organization [employer] Address 75 [facility] 7t [place] [address] Care Team Providers Care Senior Software Qa Analyst Name Role Phone Gisselle Fuentes MD Primary Care Provider Allergies No known active allergies Medications ondansetron ODT (Zofran-ODT) 4 MG disintegrating tablet DISSOLVE 1 TABLET UNDER THE TONGUE 3 TIMES DAILY 11/15/19 23 Active tadalafil (Cialis) 10 MG tablet TAKE ONE TABLET BY MOUTH EVERY DAY NEEDED FOR INTENDED ACTIVITY 12/02/19 23 Active famotidine (Pepcid) 20 MG tabletIndications :Gastroesophageal reflux disease without esophagitis Take 1 tablet (20 mg) by mouth 2 times daily. 60 tablet 11 01/11/20 23 Active levothyroxine (Synthroid, Levoxyl) 25 MCG tabletIndications :Elevated TSH TAKE 1 TABLET BY MOUTH BEFORE BREAKFAST 90 tablet 03/14/20 25 Active phentermine 15 MG capsuleIndication s:Severe obesity (BMI >= 40) (CMS/HCC) Take 1 capsule (15 mg) by mouth before breakfast. 30 capsule 04/04/20 25 2024 Active topiramate (Topamax) 25 MG tabletIndications :Severe obesity (BMI >= 40) (CMS/HCC) Take 1 tablet (25 mg) by mouth every 12 (twelve) hours. 60 tablet 11 04/04/20 25 2025 Active meloxicam (Mobic) 15 MG tabletIndications :Costochondritis Take 1 tablet (15 mg) by mouth Once per day. 30 tablet 11 04/04/20 25 2025 Active Tirzepatide-Weigh t Management (Zepbound) 7.5 MG/0.5ML solution auto-injectorIndi cations:Obesity (BMI 30-39.9) Inject 0.5 mL (7.5 mg) under the skin 1 (one) time per week. 2 mL 2 01/01/20 25 2024 Discontinued(C ost of medication) phentermine 15 MG capsuleIndication s:Severe obesity (BMI >= 40) ([facility]) Take 1 capsule (15 mg) by mouth before breakfast. 30 capsule 03/06/20 25 2024 Discontinued(R eorder (will not trigger notification to Pharmacy)) topiramate (Topamax) 25 MG tabletIndications :Severe obesity (BMI >= 40) ([facility]) Take 1 tablet (25 mg) by mouth every 12 (twelve) hours. 60 tablet 03/06/202024 Discontinued(R eorder (will not trigger notification to Pharmacy)) Active Problems Problem Noted Date Diagnosed Date Hypogonadism in male 12/31/2024 Severe obesity (BMI >= 40) 10/01/2024 Abnormal LFTs 01/13/2018 Encounters Date Type Department Care Team Description 04/05/2025 Orders Only [employer] Information Management [address] [place] [phone] Provider, MD Lianet 04/04/2025 3:15 PM EDT Office Visit [facility] MED [facility] [address] [place] [address] Gisselle Fuentes MD Costochondritis (Primary Dx); Severe obesity (BMI >= 40) ([facility]) 04/04/2025 Telephone [facility] [address] [place] [address] Gisselle Fuentes MD Referral 04/04/2025 Travel 03/28/2025 Travel 03/14/2025 Orders Only GENERIC EXTERNAL DATA DEPARTMENT Provider, Generic External Data 03/14/2025 Refill [facility] [address] [place] [address] Gisselle Fuentes MD Elevated TSH 03/06/2025 Orders Only [facility] MED & PEDS [address] [place] [address] Gisselle Fuentes MD Severe obesity (BMI >= 40) (CMS/HCC) (Primary Dx) 02/21/2025 Telephone [facility] [address] [place] [address] Gisselle Fuentes MD 02/04/2025 Orders Only [facility] [address] [place], [place] [phone] Gisselle Fuentes MD 02/04/2025 Telephone [facility] [address] [place], [place] [phone] Gisselle Fuentes MD Medication Question from Last [...] Sign Reading Time Taken Comments Blood Pressure 122/67 04/04/2025 3:01 PM EDT Pulse 70 04/04/2025 3:01 PM EDT Temperature 37.1 C (98.7 F) 04/04/2025 3:01 PM EDT Respiratory Rate 20 04/04/2025 3:01 PM EDT Oxygen Saturation 98% 04/04/2025 3:01 PM EDT Inhaled Oxygen Concentration - - Weight 125 kg (276 lb) 04/04/2025 3:01 PM EDT Height 180.3 cm (5' 11 ) 04/04/2025 3:01 PM EDT Body Mass Index 38.49 04/04/2025 3:01 PM EDT Plan of Treatment Upcoming Encounters Date Type Department Care Team (Late st Contact Info) Description 06/04/2025 3:15 PM EDT Office Visit [facility] MED & PEDS [address] [place] [address] Gisselle Fuentes MD [address] [place] [address] 08/13/2025 2:00 PM EST Office Visit [facility] OPTOMETRY [address] [place] [address] Susie Alonzo, OD [address] [facility] [place] [address] Health Maintenance Due Date Last Done Comments Family Planning (PISQ) 1998 HPV Vaccines (1 - Male 3-dos e series) 1998 Hepatitis B Vaccines (1 of 3 - 19+ 3-dose series) 2002 COVID-19 Vaccine (3 - 2024-2 6 season) 2025 01/03/2021, 12/13/2020 Influenza Vaccine (#1) 2025 9, 09/23/2017 Alcohol/Substance Use Screening 10/01/2025 10/01/2024 Depression Screening 10/01/2025 10/01/2024, 10/01/2024 SDOH Screening 12/24/2025 12/24/2024 Disability Screening 03/28/2026 03/28/2025 Tobacco Screening 04/04/2026 04/04/2025 DTaP/Tdap/Td Vaccines (2 - T d or [...] Years) and At-Risk Patients (6 to 49) Years Aged Out No longer eligible b ased on patient's age to complete this topic RSV under 20 months Aged Out No longe r eligible based on patient's age to complete this topic Rotavirus Vaccines Aged Out No longer eligible based on patient's age to complete this topic Procedures Procedure Name Priority Date/Time Associated Diagnosis Comments ECG 12-LEAD Routine 04/04/2025 4:24 PM EDT Costochondritis ECG 12-LEAD Routine 04/04/2025 9:24 AM EDT TESTOSTERONE, FREE (DIALYSIS) AND TOTAL,MS Routine 03/14/2025 7:17 AM EDT PROLACTIN Routine 03/14/2025 7:17 AM EDT LH Routine 03/14/2025 7:17 AM EDT FSH Routine 03/14/2025 7:17 AM EDT SEX HORMONE BINDING GLOBULIN Routine 03/14/2025 7:17 AM EDT LIPID PANEL, STANDARD Routine 01/09/2024 8:46 AM EDT Annual physical exam Severe obesity (BMI >= 40) (CMS/HCC) Abnormal LFTs ZZZ HISTORICAL HEPATITIS C AB W/REFL TO HCV RNA, QN, PCR Routine 09/21/2021 11:50 AM EST HIV 1/2 ANTIGEN/ANTIBODY, FOURTH GENERATION W/RFL Routine 09/21/2021 11:50 AM EST from Last 3 Months or Most Recently Relevant to Health Maintenance Results * ECG 12 lead (04/04/2025 4:24 PM EDT) Only the most recent of2 resultswithin the time period is included. Narrative Gisselle Fuentes MD - 04/04/2025 4:24 PM EDT Heart rate 61 bpm. Louise 35 degrees. Normal sinus rhythm. No sign of left atrial enlargement or right atrial enlargement. No sign of hypertrophy. No ST elevation or ST depression. Normal EKG. us Gisselle Fuentes MD ECG ORDERABLES Final Resul t * Sex Hormone Binding Globulin (SHBG) (03/14/2025 7:17 AM EDT) Sex Hormone Binding Globulin 19 10 - 50 nmol/L [facility] Comment:THIS TEST WAS PERFOR MED AT:[facility] [place] [phone] MATHEWS MD 03/14/2025 7:17 AM EDT 03/14/2025 7:17 AM EDT us Generic External Data Provider LAB BLOOD ORDERAB LES Final Result [facility] [address] [place] [address] [phone] * Prolactin (03/14/2025 7:17 AM EDT) Prolactin 9.9 2.0 - 18.0 ng/mL [facility] Comment:THIS TEST WAS PERFOR MED AT:[facility] [address] [phone] MATHEWS MD 03/14/2025 7:17 AM EDT 03/14/2025 7:17 AM EDT us Generic External Data Provider LAB BLOOD ORDERAB LES Final Result [facility] [address] [place] [address] [phone] * Testosterone, Free (Dialysis) And Total, MS (03/14/2025 7:17 AM EDT) Testosterone, Total 254 250 - 1100 ng/dL [facility] Comment:For additional infor mation, please refer tohttp://education.[employer]/faq/VxkxrAbmpbyudwkenLCDVGTVRH226(This link is being provided for informational/educational purposes only.)This test was developed and its analytical performancecharacteristics have been determined by [employer], [place]. It hasnot been cleared or approved by the U.S. Food and DrugAdministration. This assay has been validated pursuantto the CLIA regulations and is used for clinicalpurposes. Testosterone, Free 53.6 35.0 - 155.0 pg/mL [facility] Comment:This test was develo ped and its analytical performancecharacteristics have been determined by [employer] [place]. It hasnot been cleared or approved by the U.S. Food and DrugAdministration. This assay has been validated pursuantto the CLIA regulations and is used for clinicalpurposes.THIS TEST WAS PERFORMED AT:[facility]/[employer] [id number] [place] [phone] URIOSTEGUI MD,PHD 03/14/2025 7:17 AM EDT 03/14/2025 7:17 AM EDT us Generic External Data Provider LAB BLOOD ORDERAB LES Final Result Performing Organization Address City/[facility]/ZIP Co de Phone Number [facility] [address] [place] [phone] * LH (03/14/2025 7:17 AM EDT) Lutenizing Hormone 5.6 1.5 - 9.3 mIU/mL [facility] Comment:THIS TEST WAS PERFOR MED AT:[facility] [address] [phone] MATHEWS MD 03/14/2025 7:17 AM EDT 03/14/2025 7:17 AM EDT us Generic External Data Provider LAB BLOOD ORDERAB LES Final Result Performing Organization Address [facility] [place]/[facility] Co de Phone Number [facility] [address] [place] [phone] * FSH (03/14/2025 7:17 AM EDT) Follicle Stimulating Hormone 10.0 1.4 - 12.8 mIU/mL [facility] Comment:THIS TEST WAS PERFOR MED AT:[facility] [address] [phone] MATHEWS MD 03/14/2025 7:17 AM EDT 03/14/2025 7:17 AM EDT us Generic External Data Provider LAB BLOOD ORDERAB LES Final Result Performing Organization Address [facility] Co de Phone Number [facility] [address] [place] [phone] * (ABNORMAL) Lipid Panel, Standard (01/09/2024 8:46 AM EDT) Triglycerides 83 <150 mg/dL [facility] Comment:Desirable Triglyceri de: less than 150 mg/dLBorderline High Triglyceride 150-199 mg/dLHigh Triglyceride: 200-499 mg/dLVery High Triglyceride: greater than or equal to 5OO mg/dL Cholesterol 141 <200 mg/dL [facility] Comment:Desirable Cholestero l: less than 200 mg/dLBorderline High Cholesterol: 200-239 mg/dLHigh Cholesterol: greater than 239 mg/dL LDL Cholesterol Calculated 90 <100 mg/dL [facility] Comment:Desirable LDL: less than 100 mg/dLNear Optimal/Above Optimal LDL: 110- 129 mg/dLBorderline High LDL: 130-159 mg/dLHigh LDL: 160-189 mg/dLVery High LDL: greater than or equal to 190 mg/dL HDL Cholesterol 35(L) >40 mg/dL [facility] Comment:Desirable HDL: great er than 40 mg/dL Note: This HDL assay may give artificially low results in patients with liver disease. Blood Venous blood specimen / Unknown 01/09/2024 8:46 AM EDT 01/09/2024 2:27 PM EDT us Gisselle Fuentes MD LAB BLOOD ORDERABLES Final Result [facility] [address] [place] [phone] * HEPATITIS C AB W/REFL TO HCV RNA, QN, PCR (09/21/2021 11:50 AM EST) HEPATITIS C ANTIBODY NON-REACT [facility] NON-REACT [facility] INDEX 0.12 <1.00 [facility] Comment: HCV antibody was non-reactive. There is no laboratory evidence of HCV infection. In most cases, no further action is required. However, if recent HCV exposure is suspected, a test for HCV RNA (test code 52627) is suggested. For additional information please refer to http://education.[employer]/faq/LRX39q0 (This link is being provided for informational/ educational purposes only.) 09/21/2021 11:5 0 AM EST Gisselle Fuentes MD HISTORICAL/NON ORDERABLE LA BS Final Result Performing Organization Address [facility] de Phone Number [facility] [address] * HIV 1/2 ANTIGEN/ANTIBODY,FOURTH GENERATION W/RFL (09/21/2021 11:50 AM EST) HIV-1/2 ANTIGEN AND ANTIBODIES, 4TH GENERATION W/ REFLEX NON-REACT [facility] NON-REACT [facility] Comment: HIV-1 antigen and HIV-1/HIV-2 antibodies were not detected. There is no laboratory evidence of HIV infection. PLEASE NOTE: This information has been disclosed to you from records whose confidentiality may be protected by state law. If your state requires such protection, then the state law prohibits you from making any further disclosure of the information without the specific written consent of the person to whom it pertains, or as otherwise permitted by law. A general authorization for the release of medical or other information is NOT sufficient for this purpose. For additional information please refer to http://education.[employer]/faq/XNE360 (This link is being provided for informational/ educational purposes only.) The performance of this assay has not been clinically validated in patients less than 2 years old. 09/21/2021 11:5 0 AM EST us Gisselle Fuentes MD LAB BLOOD ORDERABLES Final Result Performing Organization Address [facility] Co de Phone Number [facility] [address] from Last 3 Months or Most Recently Relevant to Health Maintenance Insurance [facility] 3 Care Teams Senior Software Qa Analyst Relationship Specialty Start Date End Date Gisselle Fuentes MD [address] [place] [phone] PCP - General Internal Medicine 09/23/17
--- OUTSIDE RECORDS SUMMARY | 2025-05-02 18:36 | XMS_ITS | Encounter Summary ---
Author Organization [employer] Address 75 [facility] 7 [place] [address] Care Team Providers Care Stenocaptioner Name Role Phone Gisselle Fuentes MD Primary Care Provider [phone]- [phone] Reason for Referral * Imaging (Routine) - Closed Specialty Diagnoses / Procedures Referred By Reshma younger Referred To Contact Radiology Diagnoses Abnormal LFTs Procedures US Abdomen Complete Gisselle Fuentes MD [address] [place] [address] Phone: tel: fax: [address] Phone: tel: fax: Referral ID Status Reason Start Date Expiration Date Visits Re quested Visits Authorized [id number] Closed 01/10/2024 01/09/2025 1 1 Encounter Details Date Type Department Care Team (Late st Contact Info) Description 01/10/2024 Orders Only [facility] MED [facility] PEDS [address] [place], [place] [phone] Gisselle Fuentes MD [address] [place] [phone] Abnormal LFTs (Primary Dx) Social History Tobacco [...] Upcoming Encounters Date Type Department Care Team ([facility] Contact Info) Description 06/04/2025 3:15 PM EDT Office Visit [facility] MED [facility] PEDS [address] [place] [address] Gisselle Fuentes MD [address] [place] [address] 08/13/2025 2:00 PM EST Office Visit [facility] OPTOMETRY [address] [place] [address] Susie Alonzo, OD [address] [place] [address] Scheduled Orders Name Type Priority Associated Diagnoses Orde r Schedule US Abdomen Complete Imaging Routine Abnormal LFTs Expected: 01/10/2024, Expires: 01/09/2025 documented as of this encounter Visit Diagnoses Diagnosis Abnormal LFTs- Primary documented in this encounter Additional Health Concerns Assessment Noted Time PHQ-9 Depression Total Score: 0 01/11/20 23 3:21 PM EDT documented as of this encounter Care Teams Stenocaptioner Relationship Specialty Start Date End Date Gisselle Fuentes MD [address] [place] [address] PCP - General Internal Medicine 09/23/17 documented as of this encounter
--- OUTSIDE RECORDS SUMMARY | 2025-05-02 18:36 | XMS_ITS | Encounter Summary ---
Author Organization [employer] Address 75 [facility] 7 [place] [address] Care Team Providers Care Home Connect Lpn Name Role Phone Gisselle Fuentes MD Primary Care Provider [phone]- [phone] Reason for Visit * Reason Onset Date Comments Medication Question 02/04/2025 Encounter Details Date Type Department Care Team ([facility] st Contact Info) Description 02/04/2025 Telephone [facility] [address] [place] [address] Gisselle Fuentes MD [address] [place], [place] [phone] Medication Question Social History Tobacco Use Types [...] encounter Miscellaneous Notes * Telephone Encounter - Kelly Marlow RN - 02/04/2025 11:26 AM EDT [facility] clarify if [facility] is a [facility] needed or if [facility] * Telephone Encounter - Arpan Salas - 02/04/2025 10:03 AM EDT Tc from pt stating pharmacy does not have Tirzepatide-Weight Management (Zepbound) 7.5 MG/0.5ML solution auto-injector. If any questions you can contact pt at [phone]. (Maltese Speaker) documented in this encounter Plan of Treatment Upcoming Encounters Date Type Department Care Team (Late st Contact Info) Description 06/04/2025 3:15 PM EDT Office Visit [facility] PEDS [address] [place] [address] Gisselle Fuentes MD [address] [place] [address] 08/13/2025 2:00 PM EST Office Visit [facility] OPTOMETRY [address] [place] [address] ClintonSusie, OD [address] [place] [address] documented as of this encounter Visit Diagnoses Not on filedocumented in this encounter Additional Health Concerns Assessment Noted Time PHQ-9 Depression Total Score: 5 10/01/19 25 4:13 PM EST documented as of this encounter Care Teams Home Connect Lpn Relationship Specialty Start Date End Date Gisselle Fuentes MD [address] [place] [phone] PCP - General Internal Medicine 09/23/17 documented as of this encounter
--- OUTSIDE RECORDS SUMMARY | 2025-05-02 18:36 | XMS_ITS | Encounter Summary ---
Author Organization [employer] Address 75 [facility] 7t [place] [address] Care Team Providers Care English Lecturer Name Role Phone Gisselle Fuentes MD Primary Care Provider [phone]- [phone] Encounter Details Date Type Department Care Team ([facility] Contact Info) Description 06/29/2024 Orders Only [facility] MED [facility] PEDS [address] [place], [place] [phone] Gisselle Fuentes MD [address] [place], [place] [phone] Severe obesity (BMI >= 40) (CMS/HCC) (Primary [...] 06/04/2025 3:15 PM EDT Office Visit [facility] MED [facility] PEDS [address] [place] [address] Gisselle Fuentes MD [address] [place] [address] 08/13/2025 2:00 PM EST Office Visit [facility] OPTOMETRY [address] [place] [address] Clinton, Susie, OD [address] [place] [address] documented as of this encounter Visit Diagnoses Diagnosis Severe obesity (BMI >= 40) (CMS/HCC)- Primary documented in this encounter Additional Health Concerns Assessment Noted Time PHQ-9 Depression Total Score: 0 01/11/20 23 3:21 PM EDT documented as of this encounter Care Teams English Lecturer Relationship Specialty Start Date End Date Gisselle Fuentes MD [address] [place] [address] PCP - General Internal Medicine 09/23/17 documented as of this encounter
== END 2025-05-02 16:12 | disposition home or self-care (01) ==
LOC: HO.HUSH 15:18
PROVIDERS: PCP Internal Medicine; Visit Provider Nurse Practitioner Family
DX: F52.4 Premature ejaculation (principal); E29.1 Testicular hypofunction; Z13.9 Encounter for screening, unspecified
CPT/HCPCS: 99213

== ENCOUNTER → 2025-05-02 15:18 | Outpatient (BNVA) | payer OTHER, SELFPAY | PROVIDERS: PCP Internal Medicine; Visit Provider Nurse Practitioner Family | DX: E29.1 Testicular hypofunction (principal); F52.4 Premature ejaculation | CPT/HCPCS: 81003; 99212 ==

== ENCOUNTER 2025-06-11 13:49 | Outpatient (AMB) | payer OTHER, SELFPAY ==
--- NOTE | 2025-06-11 13:50 | MHC.OFFVIS ---
Intake Visit Reasons: follow up Intake Note: Patient is present for: follow up Urology Medication: tadalafil Blood Thinner:NONE Cold Strip Feeder Required: Yes Accompanied by: Self / Same As Patient Allergies No Known Allergies Allergy (Verified 06/11/25 13:51) HPI Comments Details: Catheter with a Beninese-speaking male. He is a patient of Dr. Oconnor. He is seen for following urologic conditions - erectile dysfunction - hypogonadism Beninese translation provided by qualified nurses medical assistants phlebotomists Recently had. Testosterone replacement undergoing fertility evaluation FSH 10.0 - this should be sufficient for spermatic production PSA 03/14 0.2, 08/14 0.4, 12/14 0.4 Testosterone 03/14 144, 08/14 228, 12/14 185, 03/15 254 Free testosterone 03/14 35.3, 08/14 45.4, 40.5, 03/15 53.6 H/H 03/14 14.8/44.4, 08/14 15.9/46.3, 12/14 14.9/43.5 LH: 03/15 5.6 Prolactin: 03/15 9.9 SHB/25 19 Erectile dysfunction: He presents today for further evaluation of ejaculatory disorder. Symptoms have been present for/since Several months. Current treatment includes none. Has used tadalafil in the past At this time he experiences erections are partial and adequate for vaginal penetration, that last until ejaculation. Currently they are in a stable relationship. 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 Review of Systems Const Denies chills and Denies fever(s) Card Reports no additional complaints and Denies syncope Resp Denies cough GI Denies abdominal pain and Denies heartburn Reports as per HPI and Denies change in libido Neuro Denies syncope Psych Denies change in libido Endo Denies change in libido Physical Exam Const General: cooperative, healthy appearing, comfortable and no acute distress Orientation/consciousness: patient oriented x3 HEENT Face and sinus: Yes normal facial exam Mouth: moist mucous membranes Neck Neck: Yes normal visual inspection, Yes full ROM and Yes trachea midline Chest Chest palpation & inspection: normal inspection of the chest Resp Effort & Inspection: normal respiratory effort, able to speak in complete sentences and no respiratory distress GI Inspection: Yes normal to inspection Back/Spine/Pelvis Cervical Spine: normal cervical lordosis Thoracic/Lumbar Spine: thoracic and lumbar spine normal to inspection Skin General skin exam: no rashes or lesions noted Neuro General: patient oriented x3, gait normal, tone normal and moves all extremities Extrem General: Yes normal to inspection and Yes capillary refill normal Assessment & Plan Assessment & Plan (1) Hypogonadism in male: Code(s): E29.1 - Testicular hypofunction Category: Medical (2) Erectile dysfunction: Code(s): N52.9 - Male erectile dysfunction, unspecified Category: Medical Plan Three-month follow-up bring semen sample for microscopic analysis Patient Instructions: This note is constructed using voice recognition software. While every effort has been made to ensure accuracy electronic parts salesperson errors may have been included. Imaging studies, laboratory and physical exam results were discussed and reviewed in detail. No major barriers to patient understanding were identified. An opportunity to ask questions regarding the treatment plan was provided. All questions were answered. The patient expressed understanding and agreement with the above treatment plan. The patient is aware they should contact our office by phone for worsening of their current condition or the appearance of new urologic symptoms. Compliance is encouraged with any medications and followup testing that is ordered. It is a privilege to participate in the urologic care of your patient. If you have any questions or concerns regarding treatment for the above conditions, or other urologic issues, please do not hesitate to contact me. The office telephone contact is [phone]. Sincerely, Dr Maged Tejeda MD, [facility] - Urology Compassionate Specialist Care for the Genitourinary System Coding Level of Care Code Est Pt Level 3 (23601) Add On Problem Visit Only Diagnoses Hypogonadism in male E29.1 Erectile dysfunction N52.9
--- OUTSIDE RECORDS SUMMARY | 2025-06-11 18:27 | XMS_ITS | Clinical Summary ---
Author Organization [facility] Address [address] [place] [address] Phone Care Team Providers Care Pin Cleaner Name Role Phone Gisselle Fuentes MD Primary Care Provider [phone] Social History Tobacco Use Types Packs/Day Years [...] of 3 - 19+ 3-dose series) 2002 HPV Vaccines (1 - 3-dose SCD M series) 2010 Cholesterol Screening (Lipid Panel) 07/25/2022 HIV Screening 07/25/2022 Hepatitis C Screening 07/25/2022 Social Influencers of Health Screening 07/25/2022 Depression Screening 08/22/2024 COVID-19 Vaccine ( - 2023-2 5 season) 2025 Influenza Vaccine (#1) 2025 RSV Immunization Adult Patie nts (1 - 1-dose 75+ series) 2058 HIB Vaccines Aged Out No longer eligi [...] topic Insurance MEDICAID - [place] Care Teams Pin Cleaner Relationship Specialty Start Date End Date Gisselle Fuentes MD [address] [place] [address] PCP - General 05/26/22
== END 2025-06-11 14:15 | disposition left against medical advice (07) ==
LOC: HO.HUSH 13:50
PROVIDERS: PCP Internal Medicine; Visit Provider Urology
DX: E29.1 Testicular hypofunction (principal); N52.9 Male erectile dysfunction, unspecified
CPT/HCPCS: 99213

== ENCOUNTER → 2025-06-11 13:49 | Outpatient (BNVA) | payer OTHER, SELFPAY | PROVIDERS: PCP Internal Medicine; Visit Provider Urology | DX: E29.1 Testicular hypofunction (principal); N52.9 Male erectile dysfunction, unspecified | CPT/HCPCS: 99212 ==